=== PATIENT | female | born 1955 | race Caucasian/White ===

== ENCOUNTER → 2022-07-29 10:01 | Outpatient (CLI) | payer BC, SELFPAY ==
[2022-07-29 10:22] LABS: Hematocrit 35.9 % (36-46); Hemoglobin 12.5 g/dL (12.0-16.0); Mean Corpuscular HGB Conc 34.8 % (30-36); Mean Corpuscular Hemoglobin 29.6 PG (26-34); Mean Corpuscular Volume 85.2 fL (80-100); Platelet Count 270 X10^3/uL (150-400); Red Blood Cell Count 4.21 X10^6/uL (4.0-5.2); Red Cell Distribution Width 13.5 % (11.6-14.8); White Blood Cell Count 6.4 X10^3/uL (4.5-11.0)
[2022-07-29 10:38] LABS: HEMOLYSIS < 15 (0-50); Iron 100 ug/dL (37-170)
[2022-07-29 10:40] LABS: Alanine Aminotransferase 42 IU/L (<35); Albumin 4.4 g/dL (3.5-5.0); Albumin Globulin Ratio 1.6 (1.0-2.8); Alkaline Phosphatase 85 U/L (38-126); Aspartate Aminotransferase 45 IU/L (14-36); BUN Creatinine Ratio 32.7 (6-22); Bilirubin Total 0.4 mg/dL (0.2-1.3); Blood Urea Nitrogen 18 mg/dL (7-17); Calcium 9.5 mg/dL (8.4-10.2); Carbon Dioxide 30 mmol/L (22-32); Chloride 102 mmol/L (98-107); Cholesterol 169 mg/dL (140-199); Estimated Glomerular Filt Rate > 60 mL/min (>60); Globulin 2.8 g/dL (1.7-4.1); Glucose 120 mg/dL (80-110); HDL Cholesterol 64 mg/dL (40-60); HEMOLYSIS < 15 (0-50); LDL Cholesterol Calculated 75 mg/dL (<100); Sodium 139 mmol/L (137-145); Total Protein 7.2 g/dL (6.3-8.2); Triglycerides 149 mg/dL (35-150)
[2022-07-29 10:49] LABS: Percent Iron Saturation 28 % (15-50); Total Iron Binding Capacity 353 ug/dL (265-497); Transferrin 270 mg/dL (206-381)
[2022-07-29 11:12] LABS: TSH w/ Reflex to FT4 1.93 uIU/mL (0.47-4.68)
[2022-07-29 11:15] LABS: Ferritin 57 ng/mL (11-264)
[2022-07-30 09:38] LABS: Labcorp Hemoglobin (Hb) A1c 6.1 % (4.8-5.6)
[2022-08-02 17:00] LABS: Lamotrigine Lamictal 6.3 ug/mL (2.0-20.0)
== END ==
PROVIDERS: PCP Internal Medicine; Referring Provider Internal Medicine; Visit Provider Internal Medicine
DX: E78.2 Mixed hyperlipidemia (principal); E83.19 Other disorders of iron metabolism; I10 Essential (primary) hypertension; K75.81 Nonalcoholic steatohepatitis (NASH); R73.01 Impaired fasting glucose; F31.81 Bipolar II disorder
CPT/HCPCS: 36415; 80053; 80061; 80175; 82728; 83036; 83540; 83550; 84443; 85027

== ENCOUNTER → 2022-10-14 15:21 | Outpatient (CLI) | payer MEDICARE, OTHER, SELFPAY ==
--- NOTE | 2022-10-14 15:22 | DI.RAD.S_ITS ---
PROCEDURE: XR LUMBAR SPINE MIN 4V INDICATIONS: low back pain TECHNIQUE: 5 views of the lumbar spine were acquired, including bilateral oblique views. COMPARISON: None. FINDINGS: Bones: 5 nonrib-bearing vertebrae are present. No vertebral body compression fractures. No suspicious bony lesions. Expected appearance of orthopedic fusion hardware, status post bilateral alla and pedicle screw fixation at L4-L5 and interbody spacer material placement. No evidence of hardware failure or loosening. There is mild anterolisthesis of L4 on L5 measuring 5 mm. The other vertebral bodies are normally aligned. Soft tissues: Overlying bowel gas pattern is normal. No suspicious soft tissue calcifications. Oblique images: No pars defects. IMPRESSION: The expected appearance of lumbar orthopedic fusion hardware. Dictated by: Mike Heath M.D. on 10/14/2022 at 17:37 Approved by: Mike Heath M.D. on 10/14/2022 at 17:39
== END ==
PROVIDERS: PCP Internal Medicine; Referring Provider Internal Medicine; Visit Provider Internal Medicine
DX: M54.50 Low back pain, unspecified (principal); Z98.1 Arthrodesis status
CPT/HCPCS: 72110

== ENCOUNTER 2023-04-29 14:30 | Outpatient (RCR) | payer MEDICARE, OTHER, SELFPAY ==
--- NOTE | 2023-02-28 17:05 | PT.OIE ---
Current Diagnoses Other chronic pain (02/28/23) Polyosteoarthritis, unspecified (02/28/23) Low back pain, unspecified (02/28/23) Unsteadiness on feet (02/28/23) Past Medical History (Last Updated 02/03/23 @ 10:38 by Phillip Ramos MD) Allergic rhinitis Bipolar 2 disorder Chronic low back pain Depression, major, recurrent Dystrophic nail Essential hypertension Gait instability Impaired fasting glucose Laryngospasm Mixed hyperlipidemia PERES (nonalcoholic steatohepatitis) Osteochondritis of tibial tuberosity Osteopenia Overweight Primary osteoarthritis involving multiple joints Restless leg syndrome Tinea unguium Urinary incontinence Visit Care Team Role Provider Type Phillip Ramos MD Attending Provider Physician Family Provider Primary Care Provider Referring Provider Specialty: Internal Medicine Address: [address] [place] [address] Email: [email or web address] Physical Therapy Initial Evaluation PT-OP-A Visit Information Start: 02/24/23 14:36 Freq: Status: Active Protocol: Document 02/28/23 13:14 [facility] (Rec: 02/28/23 14:06 [facility] [id number]) Out-Patient Physical Therapy Visit Information Visit Information Visit Type Initial Evaluation Visit Start Time 13:15 Visit Stop Time 14:00 Total Visit Minutes 45 Visit Number 1 Evaluation Information Evaluation Date 02/28/23 Precautions Precautions history osteopenia, depression , incontinence, chronic LBP, bipolar disorder, gait instability, essential HTN, L4 -5 fusion and decompression , R LAMAR 06/18, carpal tunnel surgery jered PT-OP-B Current Condition Start: 02/24/23 14:36 Freq: Status: Active Protocol: Document 02/28/23 13:14 [facility] (Rec: 02/28/23 14:06 [facility] [id number]) Current Condition History of Current Condition Onset Date 2019 Current Complaints balance difficulty, weakness, drop foot, anterior hip tightness, poor propr History of Current Condition nerve damage from compression in spine causes balance difficulty, possible drop foot . Prior Treatments and Tests spinal surgery 2019 Treatment Goals Patient/Caregiver Goals Walk faster for exercise, hike with confidence, learn to use trekking poles, improve balance Prior Functional Status Baseline Function- ADL's Independent Baseline Function- Mobility Independent Baseline Function- Gait independent Baseline Function- Recreation/Hobbies hiked without difficulty Current Functional Impairments (Reported) Functional Limitations- ADL's has to hold on more for balance Functional Limitations- Mobility/Gait use of cane at times, considering trekking poles Functional Limitations- Work/School on disability Functional Limitations- Recreation/ doesn't feel safe hiking Hobbies PT-OP-D Balance Start: 02/24/23 14:36 Freq: Status: Active Protocol: Document 02/28/23 13:14 [facility] (Rec: 03/01/23 17:05 [facility] [id number]) Balance Tests Single Limb Standing Single Limb- Right 5 Single Limb- Left 7 Tandem Tandem Standing 12 PT-OP-E Functional Tests Start: 02/24/23 14:36 Freq: Status: Active Protocol: Document 02/28/23 13:14 [facility] (Rec: 03/01/23 17:05 [facility] [id number]) Functional Tests Dynamic Gait Index (DGI) Score 54 PT-OP-F Manual Assessment Start: 02/24/23 14:36 Freq: Status: Active Protocol: Document 02/28/23 13:14 [facility] (Rec: 03/01/23 17:05 [facility] [id number]) Manual Assessments Soft Tissue Assessment Soft Tissue Mobility Assessment decreased mobility jered surgical scars lumbar spine PT-OP-G Mobility & Gait Start: 02/24/23 14:36 Freq: Status: Active Protocol: Document 02/28/23 13:14 [facility] (Rec: 03/01/23 17:05 [facility] [id number]) OP Gait Assessment Gait Gait Assistance Required: Independent Distance (Feet) 120 Assistive Devices Assistive Device Straight Cane Gait Deviations General Gait Pattern Decreased Stride Length, Decreased Feet Clearance Factors Limiting Gait Function Factors Limiting Gait Function Decreased Sensation,Decreased Strength,Poor Balance PT-OP-H Neuro Start: 02/24/23 14:36 Freq: Status: Active Protocol: Document 02/28/23 13:14 [facility] (Rec: 03/01/23 17:05 [facility] [id number]) Sensation Evaluation Gross Sensation Gross Sensation Left LE Impaired,Right LE Impaired Sensation Description Paresthesia Comments Summary Comments decreased proprioception jered LE's PT-OP-M Strength Start: 02/24/23 14:36 Freq: Status: Active Protocol: Document 02/28/23 13:14 [facility] (Rec: 02/28/23 14:06 [facility] [id number]) Hip Strength Hip Manual Muscle Testing Right Flexion (L2) 4 Good Extension (S1) 4- Good- Abduction 4- Good- External Rotation 3+ Fair+ Internal Rotation 4- Good- Left Flexion (L2) 4 Good Extension (S1) 4- Good- Abduction 4- Good- External Rotation 4- Good- Internal Rotation 4- Good- Knee Strength Knee Manual Muscle Testing Right Flexion (S2) 4+ Good+ Extension (L3) 4+ Good+ Left Flexion (S2) 4+ Good+ Extension (L3) 4+ Good+ Ankle/Foot Strength Ankle and Foot Manual Muscle Testing Right Dorsiflexion (L4) 5 Normal Plantarflexion (S1) 5 Normal Left Dorsiflexion (L4) 4 Good Plantarflexion (S1) 4 Good Toe Strength Toe Manual Muscle Testing Right Great Toe Flexion 4+ Good+ Left Great Toe Extension 4+ Good+ PT-OP-Q Treatments Start: 02/24/23 14:36 Freq: Status: Active Protocol: Document 02/28/23 13:14 [facility] (Rec: 02/28/23 14:06 [facility] [id number]) Self-Care/Home Management Treatment Education Patient Education Fall Risk,Home Exercise Program,Safety PT-OP-T Assessment and Plan Start: 02/24/23 14:36 Freq: Status: Active Protocol: Document 02/28/23 13:14 [facility] (Rec: 02/28/23 14:06 [facility] [id number]) Physical Therapy Assessment Rehab Potential Rehabilitation Potential Good Evaluation Complexity Number of Personal Factors/Comorbidities 1-2 Number of Body Systems Impaired 3 Clinical Presentation at Evaluation Evolving Impairments Impairments Activity Tolerance,Balance, Gait Goals Four Impairment balance dysfunction Impairment Activities-specific balance confidence (ABC) Scale 24% Short Term Goal (STG) Improve ABC score to at least 40% STG Duration 03/31/23 Usp Goal (LTG) Improve ABC score to at least 60% as measure of improved balance confidence to allow her to return to prior level of function LTG Duration 04/30/23 Three Impairment lacking regular exercise LTG Duration 04/30/23 Two Impairment activity intolerance Impairment Patient unable to go hiking safely Medical Dosimetrist Goal (LTG) Patient able to return to hiking with safe use of trekking poles LTG Duration 04/30/23 One Impairment gait instability Impairment Dynamic gait index 54% Short Term Goal (STG) Improve DGI score to at least 64% as measure of improved stability with gait STG Duration 03/31/23 Medical Dosimetrist Goal (LTG) Improve DGI score to at least 75% as measure of improved stability with gait LTG Duration 04/30/23 Assessment Summary Assessment Patient presents to PT with c/ o balance and gait difficulty, weakness, not feeling safe anymore to go hiking. Evaluation reveals jered LE weakness left greater than right, dec proprioception, dec scar mobility jered lumbar spine s/p spinal decompression and fusion 2018. Feel she would benefit from PT to improve her strength, balance, and gait, improve scar mobility. Treatment today consisted of evaluation and instruction in initial HEP for balance training. Discussed POC and patient was in agreement. Physical Therapy Plan Frequency and Duration Frequency of Treatment 2x/Week Duration of treatment (weeks) 8 Plan of Care Start Date 02/28/23 Plan of Care End Date 04/30/23 Therapeutic Interventions Therapeutic Interventions Balance Training,Home Exercise Program,Manual Therapy, Patient/Caregiver Education, Self-Care/Home Management,Soft Tissue Mobilization,Taping, Therapeutic Activities, Therapeutic Exercises Modalities Cold Pack/Ice Massage,Hot Packs Next Visit Focus/Plan Next Note Type Treatment Note Next Visit Plan Review HEP, patient education in correct use of trekking poles, strengthening and balance exercises. Soft tissue mobilization of lumbar surgery scars.
--- NOTE | 2023-02-28 17:06 | PT.OPPOC ---
Physical, Occupational & Speech Therapy At Current Diagnoses Other chronic pain (02/28/23) Polyosteoarthritis, unspecified (02/28/23) Low back pain, unspecified (02/28/23) Unsteadiness on feet (02/28/23) Visit Care Team Role Provider Type Phillip Ramos MD Attending Provider Physician Family Provider Primary Care Provider Referring Provider Specialty: Internal Medicine Address: [address] [place] [address], [facility] Email: [email or web address] Plan Of Care PT-OP-T Assessment and Plan Start: 02/24/23 14:36 Freq: Status: Active Protocol: Document 02/28/23 13:14 [facility] (Rec: 02/28/23 14:06 [facility] [id number]) Physical Therapy Assessment Rehab Potential Rehabilitation Potential Good Evaluation Complexity Number of Personal Factors/Comorbidities 1-2 Number of Body Systems Impaired 3 Clinical Presentation at Evaluation Evolving Impairments Impairments Activity Tolerance,Balance, Gait Goals Four Impairment balance dysfunction Impairment Activities-specific balance confidence (ABC) Scale 24% Short Term Goal (STG) Improve ABC score to at least 40% STG Duration 03/31/23 Open Die Inspector Goal (LTG) Improve ABC score to at least 60% as measure of improved balance confidence to allow her to return to prior level of function LTG Duration 04/30/23 Three Impairment lacking regular exercise LTG Duration 04/30/23 Two Impairment activity intolerance Impairment Patient unable to go hiking safely Prison Goal (LTG) Patient able to return to hiking with safe use of trekking poles LTG Duration 04/30/23 One Impairment gait instability Impairment Dynamic gait index 54% Short Term Goal (STG) Improve DGI score to at least 64% as measure of improved stability with gait STG Duration 03/31/23 Open Die Inspector Goal (LTG) Improve DGI score to at least 75% as measure of improved stability with gait LTG Duration 04/30/23 Assessment Summary Assessment Patient presents to PT with c/ o balance and gait difficulty, weakness, not feeling safe anymore to go hiking. Evaluation reveals jered LE weakness left greater than right, dec proprioception, dec scar mobility jered lumbar spine s/p spinal decompression and fusion 2018. Feel she would benefit from PT to improve her strength, balance, and gait, improve scar mobility. Treatment today consisted of evaluation and instruction in initial HEP for balance training. Discussed POC and patient was in agreement. Physical Therapy Plan Frequency and Duration Frequency of Treatment 2x/Week Duration of treatment (weeks) 8 Plan of Care Start Date 02/28/23 Plan of Care End Date 04/30/23 Therapeutic Interventions Therapeutic Interventions Balance Training,Home Exercise Program,Manual Therapy, Patient/Caregiver Education, Self-Care/Home Management,Soft Tissue Mobilization,Taping, Therapeutic Activities, Therapeutic Exercises Modalities Cold Pack/Ice Massage,Hot Packs Next Visit Focus/Plan Next Note Type Treatment Note Next Visit Plan Review HEP, patient education in correct use of trekking poles, strengthening and balance exercises. Soft tissue mobilization of lumbar surgery scars. Plan of Care Dates Plan of Care Start Date 02/28/23 Plan of Care End Date 04/30/23 Electronically Signed by: Gabriela Giles, PT 03/01/23 3391 If you are in agreement with this Plan of Care, please return a signed and dated copy. I have reviewed this Plan of Care and certify that the skilled therapy services above are required to meet the patient?s needs. Physician Signature Date Printed Name and Credentials Clinical Instructor Signature Printed Name and Credentials
--- NOTE | 2023-03-04 13:24 | PT.OTN ---
Current Diagnoses Other chronic pain (03/04/23) Polyosteoarthritis, unspecified (03/04/23) Low back pain, unspecified (03/04/23) Unsteadiness on feet (03/04/23) Physical Therapy Treatment Note PT-OP-A Visit Information Start: 02/24/23 14:36 Freq: Status: Active Protocol: Document 03/04/23 09:54 [facility] (Rec: 03/04/23 10:35 [facility] [id number]) Out-Patient Physical Therapy Visit Information Visit Information Visit Type Treatment Note Visit Note 10min late start due to pt 5 min late then using restroom upon arrival. Visit Start Time 09:55 Visit Stop Time 10:35 Total Visit Minutes 40 Visit Number 2 Number of MANAGER PROCESS EXCELLENCE Visits 1 PT-OP-B Current Condition Start: 02/24/23 14:36 Freq: Status: Active Protocol: Document 02/28/23 13:14 [facility] (Rec: 02/28/23 14:06 [facility] [id number]) Current Condition History of Current Condition Onset Date 2019 Current Complaints balance difficulty, weakness, drop foot, anterior hip tightness, poor propr History of Current Condition nerve damage from compression in spine causes balance difficulty, possible drop foot . Prior Treatments and Tests spinal surgery 2019 Treatment Goals Patient/Caregiver Goals Walk faster for exercise, hike with confidence, learn to use trekking poles, improve balance Prior Functional Status Baseline Function- ADL's Independent Baseline Function- Mobility Independent Baseline Function- Gait independent Baseline Function- Recreation/Hobbies hiked without difficulty Current Functional Impairments (Reported) Functional Limitations- ADL's has to hold on more for balance Functional Limitations- Mobility/Gait use of cane at times, considering trekking poles Functional Limitations- Work/School on disability Functional Limitations- Recreation/ doesn't feel safe hiking Hobbies Protocol: Document 03/04/23 09:54 [facility] (Rec: 03/04/23 10:35 [facility] [id number]) OP-PT Subjective Patient Comments Patient Comments Haydee reports she has tried home ex's once. Balancing on one foot, tandem, heel raises. PT-OP-D Balance Start: 02/24/23 14:36 Freq: Status: Active Protocol: Document 02/28/23 13:14 [facility] (Rec: 03/01/23 17:05 [facility] [id number]) Balance Tests Single Limb Standing Single Limb- Right 5 Single Limb- Left 7 Tandem Tandem Standing 12 PT-OP-E Functional Tests Start: 02/24/23 14:36 Freq: Status: Active Protocol: Document 02/28/23 13:14 [facility] (Rec: 03/01/23 17:05 [facility] [id number]) Functional Tests Dynamic Gait Index (DGI) Score 54 PT-OP-F Manual Assessment Start: 02/24/23 14:36 Freq: Status: Active Protocol: Document 02/28/23 13:14 [facility] (Rec: 03/01/23 17:05 [facility] [id number]) Manual Assessments Soft Tissue Assessment Soft Tissue Mobility Assessment decreased mobility jered surgical scars lumbar spine PT-OP-G Mobility & Gait Start: 02/24/23 14:36 Freq: Status: Active Protocol: Document 02/28/23 13:14 [facility] (Rec: 03/01/23 17:05 [facility] [id number]) OP Gait Assessment Gait Gait Assistance Required: Independent Distance (Feet) 120 Assistive Devices Assistive Device Straight Cane Gait Deviations General Gait Pattern Decreased Stride Length, Decreased Feet Clearance Factors Limiting Gait Function Factors Limiting Gait Function Decreased Sensation,Decreased Strength,Poor Balance PT-OP-H Neuro Start: 02/24/23 14:36 Freq: Status: Active Protocol: Document 02/28/23 13:14 [facility] (Rec: 03/01/23 17:05 [facility] [id number]) Sensation Evaluation Gross Sensation Gross Sensation Left LE Impaired,Right LE Impaired Sensation Description Paresthesia Comments Summary Comments decreased proprioception jered LE's PT-OP-M Strength Start: 02/24/23 14:36 Freq: Status: Active Protocol: Document 02/28/23 13:14 [facility] (Rec: 02/28/23 14:06 [facility] [id number]) Hip Strength Hip Manual Muscle Testing Right Flexion (L2) 4 Good Extension (S1) 4- Good- Abduction 4- Good- External Rotation 3+ Fair+ Internal Rotation 4- Good- Left Flexion (L2) 4 Good Extension (S1) 4- Good- Abduction 4- Good- External Rotation 4- Good- Internal Rotation 4- Good- Knee Strength Knee Manual Muscle Testing Right Flexion (S2) 4+ Good+ Extension (L3) 4+ Good+ Left Flexion (S2) 4+ Good+ Extension (L3) 4+ Good+ Ankle/Foot Strength Ankle and Foot Manual Muscle Testing Right Dorsiflexion (L4) 5 Normal Plantarflexion (S1) 5 Normal Left Dorsiflexion (L4) 4 Good Plantarflexion (S1) 4 Good Toe Strength Toe Manual Muscle Testing Right Great Toe Flexion 4+ Good+ Left Great Toe Extension 4+ Good+ PT-OP-Q Treatments Start: 02/24/23 14:36 Freq: Status: Active Protocol: Document 03/04/23 09:54 [facility] (Rec: 03/04/23 10:35 [facility] [id number]) Cardio Equipment Recumbent Elliptical (Biodex) Duration (Minutes) 7 Resistance 1>3 at min 4 Seat Position 4 Other cues for pushing through heels Therapeutic Exercises Standing Exercises hip flexor stretch Standing Exercise Name 1. lunge position 2. verbal discussion of Vinnie position Side bilateral Equipment Used handrail Reps/Minutes x30s ea Comments cues for form heel raises Side bilateral Equipment Used handrail Reps/Minutes x5 Gait Training Gait Activity Trekking Pole Ambulation Description bilateral, 2 pt gait pattern Device Used Sevconkking poles Level of Assistance CGA > SBA for balance Surface carpet, tile; stable Treatment Focus Safety during hiking, sequencing, coordination Comments increase stride length and foot clearance. Neuro Re-Education Treatment Balance Activities hurdles Details 6 6 hurdles Surface surface Reps/Duration 10ft x 6 Comments 1 x R foot clips porfirio - possible foot drop, cues for increased hip flexion Tandem Details 1. stance 2. walking Surface firm, shoes/socks doffed Equipment handrail Reps/Duration 1.30s trials ea 2.10ft x 6 SLS Details Jered single leg balance Surface firm, shoes/socks doffed Equipment handrail Reps/Duration 30s trials Comments RLE>LLE challenge Self-Care/Home Management Treatment Education Patient Education Home Exercise Program Other Education HEP review (SLS, tandem stance , heel raises) Eduated pt on systems for balance (vision, vestibular, proprioceptive) and how ex's can improve balance with practice. PT-OP-T Assessment and Plan Start: 02/24/23 14:36 Freq: Status: Active Protocol: Document 03/04/23 09:54 [facility] (Rec: 03/04/23 10:35 [facility] [id number]) Physical Therapy Assessment Goals Four Impairment balance dysfunction Impairment Activities-specific balance confidence (ABC) Scale 24% Short Term Goal (STG) Improve ABC score to at least 40% STG Duration 03/31/23 [facility]cf Goal (LTG) Improve ABC score to at least 60% as measure of improved balance confidence to allow her to return to prior level of function LTG Duration 04/30/23 Three Impairment lacking regular exercise LTG Duration 04/30/23 Two Impairment activity intolerance Impairment Patient unable to go hiking safely Mumps Developer Goal (LTG) Patient able to return to hiking with safe use of trekking poles LTG Duration 04/30/23 One Impairment gait instability Impairment Dynamic gait index 54% Short Term Goal (STG) Improve DGI score to at least 64% as measure of improved stability with gait STG Duration 03/31/23 Mumps Developer Goal (LTG) Improve DGI score to at least 75% as measure of improved stability with gait LTG Duration 04/30/23 Assessment Summary Assessment Haydee presents without AD. Treatment focus on HEP review (SLS, tandem stance, heel raises), gait training with trekking poles and education. Educated pt on systems for balance (vision, vestibular, proprioceptive) and how ex's can improve balance with practice. Discussed incorporating HEP into daily activities to improve compliance and progress towards goals. Physical Therapy Plan Frequency and Duration Frequency of Treatment 2x/Week Duration of treatment (weeks) 8 Plan of Care Start Date 02/28/23 Plan of Care End Date 04/30/23 Therapeutic Interventions Therapeutic Interventions Balance Training,Home Exercise Program,Manual Therapy, Patient/Caregiver Education, Self-Care/Home Management,Soft Tissue Mobilization,Taping, Therapeutic Activities, Therapeutic Exercises Modalities Cold Pack/Ice Massage,Hot Packs Next Visit Focus/Plan Next Note Type Treatment Note Next Visit Plan Review HEP, patient education in correct use of trekking poles, strengthening and balance exercises. Soft tissue mobilization of lumbar surgery scars.
--- NOTE | 2023-03-07 13:26 | PT.OTN ---
Current Diagnoses Other chronic pain (03/07/23) Polyosteoarthritis, unspecified (03/07/23) Low back pain, unspecified (03/07/23) Unsteadiness on feet (03/07/23) Physical Therapy Treatment Note PT-OP-A Visit Information Start: 02/24/23 14:36 Freq: Status: Active Protocol: Document 03/07/23 13:03 NM (Rec: 03/07/23 13:26 NM [id number]) Out-Patient Physical Therapy Visit Information Visit Information Visit Type Treatment Note Visit Start Time 12:16 Visit Stop Time 01:00 Visit Number 3 Number of [employer] Visits 1 PT-OP-B Current Condition Start: 02/24/23 14:36 Freq: Status: Active Protocol: Document 02/28/23 13:14 SAK (Rec: 02/28/23 14:06 SAK [id number]) Current Condition History of Current Condition Onset Date 2018 Current Complaints balance difficulty, weakness, drop foot, anterior hip tightness, poor propr History of Current Condition nerve damage from compression in spine causes balance difficulty, possible drop foot . Prior Treatments and Tests spinal surgery 2019 Treatment Goals Patient/Caregiver Goals Walk faster for exercise, hike with confidence, learn to use trekking poles, improve balance Prior Functional Status Baseline Function- ADL's Independent Baseline Function- Mobility Independent Baseline Function- Gait independent Baseline Function- Recreation/Hobbies hiked without difficulty Current Functional Impairments (Reported) Functional Limitations- ADL's has to hold on more for balance Functional Limitations- Mobility/Gait use of cane at times, considering trekking poles Functional Limitations- Work/School on disability Functional Limitations- Recreation/ doesn't feel safe hiking Hobbies PT-OP-C Subjective Start: 02/24/23 14:36 Freq: Status: Active Protocol: Document 03/07/23 13:03 NM (Rec: 03/07/23 13:26 NM [id number]) OP-PT Subjective Patient Comments Patient Comments Pt states she is doing well and is compliant with her HEP. She reports she is having difficulty with balancing heel -toe at home. PT-OP-D Balance Start: 02/24/23 14:36 Freq: Status: Active Protocol: Document 02/28/23 13:14 SAK (Rec: 03/01/23 17:05 SAK [id number]) Balance Tests Single Limb Standing Single Limb- Right 5 Single Limb- Left 7 Tandem Tandem Standing 12 PT-OP-E Functional Tests Start: 02/24/23 14:36 Freq: Status: Active Protocol: Document 02/28/23 13:14 SAK (Rec: 03/01/23 17:05 [facility] [id number]) Functional Tests Dynamic Gait Index (DGI) Score 54 PT-OP-F Manual Assessment Start: 02/24/23 14:36 Freq: Status: Active Protocol: Document 02/28/23 13:14 SAK (Rec: 03/01/23 17:05 [facility] [id number]) Manual Assessments Soft Tissue Assessment Soft Tissue Mobility Assessment decreased mobility jered surgical scars lumbar spine PT-OP-G Mobility & Gait Start: 02/24/23 14:36 Freq: Status: Active Protocol: Document 02/28/23 13:14 SAK (Rec: 03/01/23 17:05 [facility] [id number]) OP Gait Assessment Gait Gait Assistance Required: Independent Distance (Feet) 120 Assistive Devices Assistive Device Straight Cane Gait Deviations General Gait Pattern Decreased Stride Length, Decreased Feet Clearance Factors Limiting Gait Function Factors Limiting Gait Function Decreased Sensation,Decreased Strength,Poor Balance PT-OP-H Neuro Start: 02/24/23 14:36 Freq: Status: Active Protocol: Document 02/28/23 13:14 [facility] (Rec: 03/01/23 17:05 [facility] [id number]) Sensation Evaluation Gross Sensation Gross Sensation Left LE Impaired,Right LE Impaired Sensation Description Paresthesia Comments Summary Comments decreased proprioception jered LE's PT-OP-M Strength Start: 02/24/23 14:36 Freq: Status: Active Protocol: Document 02/28/23 13:14 [facility] (Rec: 02/28/23 14:06 [facility] [id number]) Hip Strength Hip Manual Muscle Testing Right Flexion (L2) 4 Good Extension (S1) 4- Good- Abduction 4- Good- External Rotation 3+ Fair+ Internal Rotation 4- Good- Left Flexion (L2) 4 Good Extension (S1) 4- Good- Abduction 4- Good- External Rotation 4- Good- Internal Rotation 4- Good- Knee Strength Knee Manual Muscle Testing Right Flexion (S2) 4+ Good+ Extension (L3) 4+ Good+ Left Flexion (S2) 4+ Good+ Extension (L3) 4+ Good+ Ankle/Foot Strength Ankle and Foot Manual Muscle Testing Right Dorsiflexion (L4) 5 Normal Plantarflexion (S1) 5 Normal Left Dorsiflexion (L4) 4 Good Plantarflexion (S1) 4 Good Toe Strength Toe Manual Muscle Testing Right Great Toe Flexion 4+ Good+ Left Great Toe Extension 4+ Good+ PT-OP-Q Treatments Start: 02/24/23 14:36 Freq: Status: Active Protocol: Document 03/07/23 13:03 NM (Rec: 03/07/23 13:26 NM [id number]) Cardio Equipment Recumbent Stepper (Sci-Fit) Duration (Minutes) 5 Resistance 3 Seat Position 9 Gym Equipment Shuttle Recovery heel raise to toe raise Details bilateral Resistance 25# (1 blue) Reps/Time 2x15 squats Details bilateral, green TB around knees Resistance 50# (2 navy) Shuttle Recovery Platform Stable Reps/Time 2x15 Gait Training Gait Activity Trekking Pole Ambulation Description bilateral, 2 pt gait pattern Device Used trekking poles Level of Assistance CGA > SBA for balance Surface carpet, tile; stable Distance/Duration 2 laps Treatment Focus Safety during hiking, coordination, balance Comments Cues for pole placement, correct pattern, awareness of feet. Pt drags L pole. Neuro Re-Education Treatment Balance Activities Narrow stance Details 1. stance, 2. eyes closed Surface firm, shoes doffed Equipment // bars, no UE use Reps/Duration 4x30 ea Comments Required occasional 2 finger assist during eyes closed for balance; mirror in front for visual cue Tandem Details 1. stance, 2. dual task- answering questions Surface firm, shoes doffed Equipment // bars, no UE use Reps/Duration 4x 30 ea Comments Mirror in front for visual cues; able to perform for 20 sec without use of UE for balance PT-OP-T Assessment and Plan Start: 02/24/23 14:36 Freq: Status: Active Protocol: Document 03/07/23 13:03 NM (Rec: 03/07/23 13:26 NM [id number]) Physical Therapy Assessment Rehab Potential Rehabilitation Potential Good Impairments Impairments Activity Tolerance,Balance, Gait Assessment Summary Assessment Pt tolerated treatment well, requires multiple cues to remain on task. Demonstrates improved stability during tandem and narrow stances with few instances of UE support for balance. Initiated gait training using trekking poles for future hiking activities; required consistent cues for L pole placement and advancement. Provided new HEP with quad/hip abd and ankle strengthening to improve balance. Pt would continue to benefit from skilled PT to address impairments in gait, balance, strength, proprioception, and safety awareness. Physical Therapy Plan Frequency and Duration Frequency of Treatment 2x/Week Duration of treatment (weeks) 8 Plan of Care Start Date 02/28/23 Plan of Care End Date 04/30/23 Therapeutic Interventions Therapeutic Interventions Balance Training,Home Exercise Program,Manual Therapy, Patient/Caregiver Education, Self-Care/Home Management,Soft Tissue Mobilization,Taping, Therapeutic Activities, Therapeutic Exercises Modalities Cold Pack/Ice Massage,Hot Packs Next Visit Focus/Plan Next Note Type Treatment Note Next Visit Plan Review HEP, trekking poles. Continue BLE strengthening and progress balance exercises.
--- NOTE | 2023-03-10 16:16 | PT.OTN ---
Current Diagnoses Other chronic pain (03/10/23) Polyosteoarthritis, unspecified (03/10/23) Low back pain, unspecified (03/10/23) Unsteadiness on feet (03/10/23) Physical Therapy Treatment Note PT-OP-A Visit Information Start: 02/24/23 14:36 Freq: Status: Active Protocol: Document 03/10/23 11:16 SAK (Rec: 03/10/23 12:02 [facility] [id number]) Out-Patient Physical Therapy Visit Information Visit Information Visit Type Treatment Note Visit Start Time 11:16 Visit Stop Time 12:00 Total Visit Minutes 44 Visit Number 4 Number of ASSISTANT STORE MANAGER TRAINEE Visits 0 Evaluation Information Evaluation Date 02/28/23 PT-OP-B Current Condition Start: 02/24/23 14:36 Freq: Status: Active Protocol: Document 03/10/23 11:16 SAK (Rec: 03/10/23 12:02 [facility] [id number]) Current Condition History of Current Condition Onset Date 2019 Current Complaints balance difficulty, weakness, drop foot, anterior hip tightness, poor propr History of Current Condition nerve damage from compression in spine causes balance difficulty, possible drop foot . Prior Treatments and Tests spinal surgery 2019 PT-OP-C Subjective Start: 02/24/23 14:36 Freq: Status: Active Protocol: Document 03/10/23 11:16 SAK (Rec: 03/10/23 12:02 [facility] [id number]) OP-PT Subjective Patient Comments Patient Comments Reports feeling her balance is some better. Notices her balance is better when she walks faster. Has been doing HEP. PT-OP-D Balance Start: 02/24/23 14:36 Freq: Status: Active Protocol: Document 02/28/23 13:14 SAK (Rec: 03/01/23 17:05 [facility] [id number]) Balance Tests Single Limb Standing Single Limb- Right 5 Single Limb- Left 7 Tandem Tandem Standing 12 PT-OP-E Functional Tests Start: 02/24/23 14:36 Freq: Status: Active Protocol: Document 02/28/23 13:14 SAK (Rec: 03/01/23 17:05 [facility] [id number]) Functional Tests Dynamic Gait Index (DGI) Score 54 PT-OP-F Manual Assessment Start: 02/24/23 14:36 Freq: Status: Active Protocol: Document 02/28/23 13:14 SAK (Rec: 03/01/23 17:05 [facility] [id number]) Manual Assessments Soft Tissue Assessment Soft Tissue Mobility Assessment decreased mobility tyron surgical scars lumbar spine PT-OP-G Mobility & Gait Start: 02/24/23 14:36 Freq: Status: Active Protocol: Document 02/28/23 13:14 [facility] (Rec: 03/01/23 17:05 [facility] [id number]) OP Gait Assessment Gait Gait Assistance Required: Independent Distance (Feet) 120 Assistive Devices Assistive Device Straight Cane Gait Deviations General Gait Pattern Decreased Stride Length, Decreased Feet Clearance Factors Limiting Gait Function Factors Limiting Gait Function Decreased Sensation,Decreased Strength,Poor Balance PT-OP-H Neuro Start: 02/24/23 14:36 Freq: Status: Active Protocol: Document 02/28/23 13:14 [facility] (Rec: 03/01/23 17:05 [facility] [id number]) Sensation Evaluation Gross Sensation Gross Sensation Left LE Impaired,Right LE Impaired Sensation Description Paresthesia Comments Summary Comments decreased proprioception tyron LE's PT-OP-M Strength Start: 02/24/23 14:36 Freq: Status: Active Protocol: Document 02/28/23 13:14 [facility] (Rec: 02/28/23 14:06 [facility] [id number]) Hip Strength Hip Manual Muscle Testing Right Flexion (L2) 4 Good Extension (S1) 4- Good- Abduction 4- Good- External Rotation 3+ Fair+ Internal Rotation 4- Good- Left Flexion (L2) 4 Good Extension (S1) 4- Good- Abduction 4- Good- External Rotation 4- Good- Internal Rotation 4- Good- Knee Strength Knee Manual Muscle Testing Right Flexion (S2) 4+ Good+ Extension (L3) 4+ Good+ Left Flexion (S2) 4+ Good+ Extension (L3) 4+ Good+ Ankle/Foot Strength Ankle and Foot Manual Muscle Testing Right Dorsiflexion (L4) 5 Normal Plantarflexion (S1) 5 Normal Left Dorsiflexion (L4) 4 Good Plantarflexion (S1) 4 Good Toe Strength Toe Manual Muscle Testing Right Great Toe Flexion 4+ Good+ Left Great Toe Extension 4+ Good+ PT-OP-Q Treatments Start: 02/24/23 14:36 Freq: Status: Active Protocol: Document 03/10/23 11:16 [facility] (Rec: 03/10/23 12:02 [facility] [id number]) Cardio Equipment Recumbent Stepper (Sci-Fit) Duration (Minutes) 5 Resistance 3 Seat Position 9 Gym Equipment Shuttle Recovery heel raise to toe raise Details bilateral Resistance 25# (1 blue) Reps/Time 2x15, cues for gluteal activation squats Details bilateral, green TB around knees Resistance 50# (2 navy) Shuttle Recovery Platform Stable Reps/Time 2x15, cues for gluteal activation Shuttle Balance chains red Details EO, bal and wt shift fwd/bck, side Reps/Duration 10 min Therapeutic Exercises Supine Exercises bridge Supine Exercise Name dbl, single Reps/Minutes 5x ea Comments cues for min lift with single Standing Exercises ant tib stretch Reps/Minutes 2x30 HC stretch Reps/Minutes 2x30 Gait Training Gait Activity Trekking Pole Ambulation Comments Hasn't used yet at home. Neuro Re-Education Treatment Balance Activities foam walk Details green, blue, black foam Reps/Duration 2 min Comments parallel bars. Narrow stance Details 1. stance, 2. eyes closed Surface firm, shoes doffed Equipment // bars, no UE use Reps/Duration 4x30 ea Comments Required occasional 2 finger assist during eyes closed for balance; mirror in front for visual cue Tandem Details stance, walking Surface blue foam shoes doffed Equipment // bars, no UE use SLS Details Tyron single leg balance Surface firm, shoes/socks doffed Equipment handrail Reps/Duration 30s trials Comments RLE>LLE challenge PT-OP-T Assessment and Plan Start: 02/24/23 14:36 Freq: Status: Active Protocol: Document 03/10/23 11:16 [facility] (Rec: 03/10/23 12:02 [facility] [id number]) Physical Therapy Assessment Impairments Impairments Activity Tolerance,Balance, Gait Goals Four Impairment balance dysfunction Impairment Activities-specific balance confidence (ABC) Scale 24% Short Term Goal (STG) Improve ABC score to at least 40% STG Duration 03/31/23 Fpc Goal (LTG) Improve ABC score to at least 60% as measure of improved balance confidence to allow her to return to prior level of function LTG Duration 04/30/23 Three Impairment lacking regular exercise Short Term Goal (STG) Instruct in HEP with emphasis on balance and LE strength STG Duration 03/31/23 Engineered Wood Designer Goal (LTG) Patient to be independent and compliant with HEP for purposes of LE strengthening and balance. LTG Duration 04/30/23 Two Impairment activity intolerance Impairment Patient unable to go hiking safely Fpc Goal (LTG) Patient able to return to hiking with safe use of trekking poles LTG Duration 04/30/23 One Impairment gait instability Impairment Dynamic gait index 54% Short Term Goal (STG) Improve DGI score to at least 64% as measure of improved stability with gait STG Duration 03/31/23 Engineered Wood Designer Goal (LTG) Improve DGI score to at least 75% as measure of improved stability with gait LTG Duration 04/30/23 Progress Towards Goals Progress Towards Goals Progressing Toward Goals Assessment Summary Assessment progressed to red chains on shuttle balance, added single leg bridge, glue foam under feet for tandem stand. Noting improved functional balance. Hasn't tried using trekking poles yet, may need further review/ instruction. Will continue to benefit from skilled PT. Physical Therapy Plan Frequency and Duration Frequency of Treatment 2x/Week Duration of treatment (weeks) 8 Plan of Care Start Date 02/28/23 Plan of Care End Date 04/30/23 Therapeutic Interventions Therapeutic Interventions Balance Training,Home Exercise Program,Manual Therapy, Patient/Caregiver Education, Self-Care/Home Management,Soft Tissue Mobilization,Taping, Therapeutic Activities, Therapeutic Exercises Modalities Cold Pack/Ice Massage,Hot Packs Next Visit Focus/Plan Next Note Type Treatment Note Next Visit Plan Cont ther ex progression for balance and strengthening including obstacle course and progression of shuttle balance activities. Review use of trekking poles.
--- NOTE | 2023-03-16 10:45 | PT.OTN ---
Current Diagnoses Other chronic pain (03/16/23) Polyosteoarthritis, unspecified (03/16/23) Low back pain, unspecified (03/16/23) Unsteadiness on feet (03/16/23) Physical Therapy Treatment Note PT-OP-A Visit Information Start: 02/24/23 14:36 Freq: Status: Active Protocol: Document 03/16/23 08:11 SAK (Rec: 03/16/23 09:00 SAK [id number]) Out-Patient Physical Therapy Visit Information Visit Information Visit Type Treatment Note Visit Start Time 08:15 Visit Stop Time 08:55 Total Visit Minutes 40 Visit Number 5 Evaluation Information Evaluation Date 02/28/23 PT-OP-B Current Condition Start: 02/24/23 14:36 Freq: Status: Active Protocol: Document 03/16/23 08:11 SAK (Rec: 03/16/23 09:00 SAK [id number]) Current Condition History of Current Condition Onset Date 2019 Current Complaints balance difficulty, weakness, drop foot, anterior hip tightness, poor propr History of Current Condition nerve damage from compression in spine causes balance difficulty, possible drop foot . Prior Treatments and Tests spinal surgery 2019 PT-OP-C Subjective Start: 02/24/23 14:36 Freq: Status: Active Protocol: Document 03/16/23 08:11 SAK (Rec: 03/16/23 09:00 SAK [id number]) OP-PT Subjective Patient Comments Patient Comments Compliant to HEP. PT-OP-D Balance Start: 02/24/23 14:36 Freq: Status: Active Protocol: Document 02/28/23 13:14 SAK (Rec: 03/01/23 17:05 SAK [id number]) Balance Tests Single Limb Standing Single Limb- Right 5 Single Limb- Left 7 Tandem Tandem Standing 12 PT-OP-E Functional Tests Start: 02/24/23 14:36 Freq: Status: Active Protocol: Document 02/28/23 13:14 SAK (Rec: 03/01/23 17:05 SAK [id number]) Functional Tests Dynamic Gait Index (DGI) Score 54 PT-OP-F Manual Assessment Start: 02/24/23 14:36 Freq: Status: Active Protocol: Document 02/28/23 13:14 SAK (Rec: 03/01/23 17:05 SAK [id number]) Manual Assessments Soft Tissue Assessment Soft Tissue Mobility Assessment decreased mobility tyron surgical scars lumbar spine PT-OP-G Mobility & Gait Start: 02/24/23 14:36 Freq: Status: Active Protocol: Document 02/28/23 13:14 [facility] (Rec: 03/01/23 17:05 [facility] [id number]) OP Gait Assessment Gait Gait Assistance Required: Independent Distance (Feet) 120 Assistive Devices Assistive Device Straight Cane Gait Deviations General Gait Pattern Decreased Stride Length, Decreased Feet Clearance Factors Limiting Gait Function Factors Limiting Gait Function Decreased Sensation,Decreased Strength,Poor Balance PT-OP-H Neuro Start: 02/24/23 14:36 Freq: Status: Active Protocol: Document 02/28/23 13:14 [facility] (Rec: 03/01/23 17:05 [facility] [id number]) Sensation Evaluation Gross Sensation Gross Sensation Left LE Impaired,Right LE Impaired Sensation Description Paresthesia Comments Summary Comments decreased proprioception tyron LE's PT-OP-M Strength Start: 02/24/23 14:36 Freq: Status: Active Protocol: Document 02/28/23 13:14 [facility] (Rec: 02/28/23 14:06 [facility] [id number]) Hip Strength Hip Manual Muscle Testing Right Flexion (L2) 4 Good Extension (S1) 4- Good- Abduction 4- Good- External Rotation 3+ Fair+ Internal Rotation 4- Good- Left Flexion (L2) 4 Good Extension (S1) 4- Good- Abduction 4- Good- External Rotation 4- Good- Internal Rotation 4- Good- Knee Strength Knee Manual Muscle Testing Right Flexion (S2) 4+ Good+ Extension (L3) 4+ Good+ Left Flexion (S2) 4+ Good+ Extension (L3) 4+ Good+ Ankle/Foot Strength Ankle and Foot Manual Muscle Testing Right Dorsiflexion (L4) 5 Normal Plantarflexion (S1) 5 Normal Left Dorsiflexion (L4) 4 Good Plantarflexion (S1) 4 Good Toe Strength Toe Manual Muscle Testing Right Great Toe Flexion 4+ Good+ Left Great Toe Extension 4+ Good+ PT-OP-Q Treatments Start: 02/24/23 14:36 Freq: Status: Active Protocol: Document 03/16/23 08:11 [facility] (Rec: 03/16/23 09:00 [facility] [id number]) Cardio Equipment Recumbent Stepper (Sci-Fit) Duration (Minutes) 7 Resistance 3 Seat Position 9 Other RPM 40-50 Gym Equipment Shuttle Recovery heel raise to toe raise Details bilateral Resistance 25# (1 blue) Reps/Time 2x15, cues for gluteal activation squats Details bilateral, green TB around knees Resistance 50# (2 navy) Shuttle Recovery Platform Stable Reps/Time 2x15, cues for gluteal activation Shuttle Balance chains red Details EO, bal and wt shift fwd/bck, side Reps/Duration 10 min Comments side by side, stride position Therapeutic Exercises Standing Exercises ant tib stretch Reps/Minutes 2x30 HC stretch Reps/Minutes 2x30 Neuro Re-Education Treatment Balance Activities BOSU balance Details WBOS, EO Reps/Duration 3 mine resisted walk Details sidestep hamstring curl Equipment 2# step touch Equipment 2# foam walk Details green, blue, black foam Reps/Duration 2 min Comments parallel bar; cues for no UE use as possible SLS Details Tyron single leg balance Surface firm, green>blue>black foam Equipment handrail Reps/Duration 30s trials Comments RLE>LLE challenge PT-OP-T Assessment and Plan Start: 02/24/23 14:36 Freq: Status: Active Protocol: Document 03/16/23 08:11 [facility] (Rec: 03/16/23 09:00 [facility] [id number]) Physical Therapy Assessment Impairments Impairments Activity Tolerance,Balance, Gait Goals Four Impairment balance dysfunction Impairment Activities-specific balance confidence (ABC) Scale 24% Short Term Goal (STG) Improve ABC score to at least 40% STG Duration 03/31/23 Flight Readiness Technician Goal (LTG) Improve ABC score to at least 60% as measure of improved balance confidence to allow her to return to prior level of function LTG Duration 04/30/23 Three Impairment lacking regular exercise Short Term Goal (STG) Instruct in HEP with emphasis on balance and LE strength STG Duration 03/31/23 Flight Readiness Technician Goal (LTG) Patient to be independent and compliant with HEP for purposes of LE strengthening and balance. LTG Duration 04/30/23 Two Impairment activity intolerance Impairment Patient unable to go hiking safely Flight Readiness Technician Goal (LTG) Patient able to return to hiking with safe use of trekking poles LTG Duration 04/30/23 One Impairment gait instability Impairment Dynamic gait index 54% Short Term Goal (STG) Improve DGI score to at least 64% as measure of improved stability with gait STG Duration 03/31/23 Flight Readiness Technician Goal (LTG) Improve DGI score to at least 75% as measure of improved stability with gait LTG Duration 04/30/23 Progress Towards Goals Progress Towards Goals Progressing Toward Goals Assessment Summary Assessment Progressed to stride stance on shuttle balance and added resisted sidestepping, some discomfort left hip. Physical Therapy Plan Frequency and Duration Frequency of Treatment 2x/Week Duration of treatment (weeks) 8 Plan of Care Start Date 02/28/23 Plan of Care End Date 04/30/23 Therapeutic Interventions Therapeutic Interventions Balance Training,Home Exercise Program,Manual Therapy, Patient/Caregiver Education, Self-Care/Home Management,Soft Tissue Mobilization,Taping, Therapeutic Activities, Therapeutic Exercises Modalities Cold Pack/Ice Massage,Hot Packs Next Visit Focus/Plan Next Note Type Treatment Note Next Visit Plan Cont ther ex progression for balance and strengthening including obstacle course and progression of shuttle balance activities. Review use of trekking poles.
--- NOTE | 2023-03-18 14:46 | PT.OTN ---
Current Diagnoses Other chronic pain (03/18/23) Polyosteoarthritis, unspecified (03/18/23) Low back pain, unspecified (03/18/23) Unsteadiness on feet (03/18/23) Physical Therapy Treatment Note PT-OP-A Visit Information Start: 02/24/23 14:36 Freq: Status: Active Protocol: Document 03/18/23 13:55 NBM (Rec: 03/18/23 14:46 NB [id number]) Out-Patient Physical Therapy Visit Information Visit Information Visit Type Treatment Note Visit Start Time 13:50 Visit Stop Time 14:40 Total Visit Minutes 50 Visit Number 6 Number of LENS COATER Visits 1 PT-OP-B Current Condition Start: 02/24/23 14:36 Freq: Status: Active Protocol: Document 03/16/23 08:11 SAK (Rec: 03/16/23 09:00 SAK [id number]) Current Condition History of Current Condition Onset Date 2018 Current Complaints balance difficulty, weakness, drop foot, anterior hip tightness, poor propr History of Current Condition nerve damage from compression in spine causes balance difficulty, possible drop foot . Prior Treatments and Tests spinal surgery 2019 PT-OP-C Subjective Start: 02/24/23 14:36 Freq: Status: Active Protocol: Document 03/18/23 13:55 NBM (Rec: 03/18/23 14:46 NB [id number]) OP-PT Subjective Patient Comments Patient Comments Haydee reports she is getting over an illness and is very tired but has not had a fever for 24 hours. She was surprised by how sore she was after Wed PT. She wants to proceed with PT today to work on her balance because she thinks PT helps. I have a lot more confident with walking and it has helped, in terms of strength also. Patient Reported Progress Improving PT-OP-D Balance Start: 02/24/23 14:36 Freq: Status: Active Protocol: Document 02/28/23 13:14 SAK (Rec: 03/01/23 17:05 SAK [id number]) Balance Tests Single Limb Standing Single Limb- Right 5 Single Limb- Left 7 Tandem Tandem Standing 12 PT-OP-E Functional Tests Start: 02/24/23 14:36 Freq: Status: Active Protocol: Document 02/28/23 13:14 SAK (Rec: 03/01/23 17:05 SAK [id number]) Functional Tests Dynamic Gait Index (DGI) Score 54 PT-OP-F Manual Assessment Start: 02/24/23 14:36 Freq: Status: Active Protocol: Document 02/28/23 13:14 [facility] (Rec: 03/01/23 17:05 [facility] [id number]) Manual Assessments Soft Tissue Assessment Soft Tissue Mobility Assessment decreased mobility tyron surgical scars lumbar spine PT-OP-G Mobility & Gait Start: 02/24/23 14:36 Freq: Status: Active Protocol: Document 02/28/23 13:14 [facility] (Rec: 03/01/23 17:05 [facility] [id number]) OP Gait Assessment Gait Gait Assistance Required: Independent Distance (Feet) 120 Assistive Devices Assistive Device Straight Cane Gait Deviations General Gait Pattern Decreased Stride Length, Decreased Feet Clearance Factors Limiting Gait Function Factors Limiting Gait Function Decreased Sensation,Decreased Strength,Poor Balance PT-OP-H Neuro Start: 02/24/23 14:36 Freq: Status: Active Protocol: Document 02/28/23 13:14 [facility] (Rec: 03/01/23 17:05 [facility] [id number]) Sensation Evaluation Gross Sensation Gross Sensation Left LE Impaired,Right LE Impaired Sensation Description Paresthesia Comments Summary Comments decreased proprioception tyron LE's PT-OP-M Strength Start: 02/24/23 14:36 Freq: Status: Active Protocol: Document 02/28/23 13:14 [facility] (Rec: 02/28/23 14:06 [facility] [id number]) Hip Strength Hip Manual Muscle Testing Right Flexion (L2) 4 Good Extension (S1) 4- Good- Abduction 4- Good- External Rotation 3+ Fair+ Internal Rotation 4- Good- Left Flexion (L2) 4 Good Extension (S1) 4- Good- Abduction 4- Good- External Rotation 4- Good- Internal Rotation 4- Good- Knee Strength Knee Manual Muscle Testing Right Flexion (S2) 4+ Good+ Extension (L3) 4+ Good+ Left Flexion (S2) 4+ Good+ Extension (L3) 4+ Good+ Ankle/Foot Strength Ankle and Foot Manual Muscle Testing Right Dorsiflexion (L4) 5 Normal Plantarflexion (S1) 5 Normal Left Dorsiflexion (L4) 4 Good Plantarflexion (S1) 4 Good Toe Strength Toe Manual Muscle Testing Right Great Toe Flexion 4+ Good+ Left Great Toe Extension 4+ Good+ PT-OP-Q Treatments Start: 02/24/23 14:36 Freq: Status: Active Protocol: Document 03/18/23 13:55 NBM (Rec: 03/18/23 14:46 [facility] [id number]) Cardio Equipment Recumbent Stepper (Sci-Fit) Duration (Minutes) 6 Resistance 2 Seat Position 9 Other RPM 40-50 Gym Equipment Shuttle Balance chains red Details A/P bal and wt shift Reps/Duration 10 min Comments shoes doffed WBOS, NBOS, stride stance Tyron EO/EC x30s ea WBOS: balloon volleyball Neuro Re-Education Treatment Balance Activities foam walk Details green, blue, black foam Reps/Duration 2 min Comments parallel bar; cues for no UE use as possible SLS Details Tyron single leg balance Surface firm, green>blue>black foam Equipment handrail Reps/Duration 30s trials Comments RLE>LLE challenge occasional toe touch. Self-Care/Home Management Treatment Education Patient Education Safety Other Education Discussed adequate hydration in context of pt's recent illness and muscle soreness. PT-OP-T Assessment and Plan Start: 02/24/23 14:36 Freq: Status: Active Protocol: Document 03/18/23 13:55 NB (Rec: 03/18/23 14:46 [facility] [id number]) Physical Therapy Assessment Goals Four Impairment balance dysfunction Impairment Activities-specific balance confidence (ABC) Scale 24% Short Term Goal (STG) Improve ABC score to at least 40% STG Duration 03/31/23 Glass Worker Goal (LTG) Improve ABC score to at least 60% as measure of improved balance confidence to allow her to return to prior level of function LTG Duration 04/30/23 Three Impairment lacking regular exercise Short Term Goal (STG) Instruct in HEP with emphasis on balance and LE strength STG Duration 03/31/23 Skilled Nursing Goal (LTG) Patient to be independent and compliant with HEP for purposes of LE strengthening and balance. LTG Duration 04/30/23 Two Impairment activity intolerance Impairment Patient unable to go hiking safely Glass Worker Goal (LTG) Patient able to return to hiking with safe use of trekking poles LTG Duration 04/30/23 One Impairment gait instability Impairment Dynamic gait index 54% Short Term Goal (STG) Improve DGI score to at least 64% as measure of improved stability with gait STG Duration 03/31/23 Skilled Nursing Goal (LTG) Improve DGI score to at least 75% as measure of improved stability with gait LTG Duration 04/30/23 Assessment Summary Assessment Haydee presents tired today recovering from recent illness . Discussed adequate hydration in context of pt's recent illness and muscle soreness. Treatment focus on balance. She demonstrates improving confidence on the Shuttle Balance but is challenged w/ eccentric control in staggered stance RLE back >LLE back. She is unable to stand 30s SLS without toe touch. Physical Therapy Plan Frequency and Duration Frequency of Treatment 2x/Week Duration of treatment (weeks) 8 Plan of Care Start Date 02/28/23 Plan of Care End Date 04/30/23 Therapeutic Interventions Therapeutic Interventions Balance Training,Home Exercise Program,Manual Therapy, Patient/Caregiver Education, Self-Care/Home Management,Soft Tissue Mobilization,Taping, Therapeutic Activities, Therapeutic Exercises Modalities Cold Pack/Ice Massage,Hot Packs Next Visit Focus/Plan Next Note Type Treatment Note Next Visit Plan Consider reviewing sleeping positions and pillow supports. POC: Cont ther ex progression for balance and strengthening including obstacle course and progression of shuttle balance activities. Review use of trekking poles.
--- NOTE | 2023-03-22 16:13 | PT.OTN ---
Current Diagnoses Other chronic pain (03/22/23) Polyosteoarthritis, unspecified (03/22/23) Low back pain, unspecified (03/22/23) Unsteadiness on feet (03/22/23) Physical Therapy Treatment Note PT-OP-A Visit Information Start: 02/24/23 14:36 Freq: Status: Active Protocol: Document 03/22/23 15:15 SAK (Rec: 03/22/23 16:13 SAK [id number]) Out-Patient Physical Therapy Visit Information Visit Information Visit Type Treatment Note Visit Start Time 15:15 Visit Stop Time 16:00 Total Visit Minutes 45 Visit Number 7 Number of COMMERCIAL LINES ACCOUNT MANAGER Visits 0 PT-OP-B Current Condition Start: 02/24/23 14:36 Freq: Status: Active Protocol: Document 03/22/23 15:15 SAK (Rec: 03/22/23 16:13 SAK [id number]) Current Condition History of Current Condition Onset Date 2018 Current Complaints balance difficulty, weakness, drop foot, anterior hip tightness, poor propr History of Current Condition nerve damage from compression in spine causes balance difficulty, possible drop foot . Prior Treatments and Tests spinal surgery 2019 PT-OP-C Subjective Start: 02/24/23 14:36 Freq: Status: Active Protocol: Document 03/22/23 15:15 SAK (Rec: 03/22/23 16:13 SAK [id number]) OP-PT Subjective Patient Comments Patient Comments No new c/o. NOt as sore after last session. PT-OP-D Balance Start: 02/24/23 14:36 Freq: Status: Active Protocol: Document 02/28/23 13:14 SAK (Rec: 03/01/23 17:05 SAK [id number]) Balance Tests Single Limb Standing Single Limb- Right 5 Single Limb- Left 7 Tandem Tandem Standing 12 PT-OP-E Functional Tests Start: 02/24/23 14:36 Freq: Status: Active Protocol: Document 02/28/23 13:14 SAK (Rec: 03/01/23 17:05 SAK [id number]) Functional Tests Dynamic Gait Index (DGI) Score 54 PT-OP-F Manual Assessment Start: 02/24/23 14:36 Freq: Status: Active Protocol: Document 02/28/23 13:14 SAK (Rec: 03/01/23 17:05 SAK [id number]) Manual Assessments Soft Tissue Assessment Soft Tissue Mobility Assessment decreased mobility tyron surgical scars lumbar spine PT-OP-G Mobility & Gait Start: 02/24/23 14:36 Freq: Status: Active Protocol: Document 02/28/23 13:14 [facility] (Rec: 03/01/23 17:05 [facility] [id number]) OP Gait Assessment Gait Gait Assistance Required: Independent Distance (Feet) 120 Assistive Devices Assistive Device Straight Cane Gait Deviations General Gait Pattern Decreased Stride Length, Decreased Feet Clearance Factors Limiting Gait Function Factors Limiting Gait Function Decreased Sensation,Decreased Strength,Poor Balance PT-OP-H Neuro Start: 02/24/23 14:36 Freq: Status: Active Protocol: Document 02/28/23 13:14 [facility] (Rec: 03/01/23 17:05 [facility] [id number]) Sensation Evaluation Gross Sensation Gross Sensation Left LE Impaired,Right LE Impaired Sensation Description Paresthesia Comments Summary Comments decreased proprioception tyron LE's PT-OP-M Strength Start: 02/24/23 14:36 Freq: Status: Active Protocol: Document 02/28/23 13:14 [facility] (Rec: 02/28/23 14:06 [facility] [id number]) Hip Strength Hip Manual Muscle Testing Right Flexion (L2) 4 Good Extension (S1) 4- Good- Abduction 4- Good- External Rotation 3+ Fair+ Internal Rotation 4- Good- Left Flexion (L2) 4 Good Extension (S1) 4- Good- Abduction 4- Good- External Rotation 4- Good- Internal Rotation 4- Good- Knee Strength Knee Manual Muscle Testing Right Flexion (S2) 4+ Good+ Extension (L3) 4+ Good+ Left Flexion (S2) 4+ Good+ Extension (L3) 4+ Good+ Ankle/Foot Strength Ankle and Foot Manual Muscle Testing Right Dorsiflexion (L4) 5 Normal Plantarflexion (S1) 5 Normal Left Dorsiflexion (L4) 4 Good Plantarflexion (S1) 4 Good Toe Strength Toe Manual Muscle Testing Right Great Toe Flexion 4+ Good+ Left Great Toe Extension 4+ Good+ PT-OP-Q Treatments Start: 02/24/23 14:36 Freq: Status: Active Protocol: Document 03/22/23 15:15 [facility] (Rec: 03/22/23 16:13 [facility] [id number]) Cardio Equipment Recumbent Stepper (Sci-Fit) Duration (Minutes) 8 Resistance 2 Seat Position 9 Other RPM 40-50 Gym Equipment Shuttle Recovery Unilateral Squats Resistance 25# Shuttle Recovery Platform Stable Reps/Time 15x2 heel raise to toe raise Details bilateral Resistance 25# (1 blue) Reps/Time 2x15, cues for gluteal activation squats Details bilateral, green TB around knees Resistance 50# (2 navy) Shuttle Recovery Platform Stable Reps/Time 2x15, cues for gluteal activation Shuttle Balance chains red Details A/P bal and wt shift Reps/Duration 10 min Comments shoes doffed WBOS, NBOS, stride stance Tyron EO/EC x30s ea WBOS: balloon volleyball Neuro Re-Education Treatment Balance Activities foam walk Details green, blue, black foam Reps/Duration 2 min Comments parallel bar; cues for no UE use as possible SLS Details Tyron single leg balance Surface firm, green>blue>black foam Equipment handrail Reps/Duration 30s trials Comments RLE>LLE challenge occasional toe touch. Self-Care/Home Management Treatment Activities Self-Care/Home Management Activities educated in correct bed positioning using pillows and folded towl; supine and sidelying with patient demonstrating good understanding. PT-OP-T Assessment and Plan Start: 02/24/23 14:36 Freq: Status: Active Protocol: Document 03/22/23 15:15 [facility] (Rec: 03/22/23 16:13 [facility] [id number]) Physical Therapy Assessment Impairments Impairments Activity Tolerance,Balance, Gait Goals Four Impairment balance dysfunction Impairment Activities-specific balance confidence (ABC) Scale 24% Short Term Goal (STG) Improve ABC score to at least 40% STG Duration 03/31/23 Chaplain Resident Goal (LTG) Improve ABC score to at least 60% as measure of improved balance confidence to allow her to return to prior level of function LTG Duration 04/30/23 Three Impairment lacking regular exercise Short Term Goal (STG) Instruct in HEP with emphasis on balance and LE strength STG Duration 03/31/23 Chaplain Resident Goal (LTG) Patient to be independent and compliant with HEP for purposes of LE strengthening and balance. LTG Duration 04/30/23 Two Impairment activity intolerance Impairment Patient unable to go hiking safely Chaplain Resident Goal (LTG) Patient able to return to hiking with safe use of trekking poles LTG Duration 04/30/23 One Impairment gait instability Impairment Dynamic gait index 54% Short Term Goal (STG) Improve DGI score to at least 64% as measure of improved stability with gait STG Duration 03/31/23 Chaplain Resident Goal (LTG) Improve DGI score to at least 75% as measure of improved stability with gait LTG Duration 04/30/23 Assessment Summary Assessment Improving activity tolerance. Educated in bed positioning with use of pillows and towel; demonstrated good understanding. Progressed to single leg on shuttle leg press with good tolerance. Physical Therapy Plan Frequency and Duration Frequency of Treatment 2x/Week Duration of treatment (weeks) 8 Plan of Care Start Date 02/28/23 Plan of Care End Date 04/30/23 Therapeutic Interventions Therapeutic Interventions Balance Training,Home Exercise Program,Manual Therapy, Patient/Caregiver Education, Self-Care/Home Management,Soft Tissue Mobilization,Taping, Therapeutic Activities, Therapeutic Exercises Modalities Cold Pack/Ice Massage,Hot Packs Next Visit Focus/Plan Next Note Type Treatment Note Next Visit Plan Review use of trekking poles, continue therapeutic execise progression for strengthening and balance. Obstacle course. FRANCHESKA Patterson.
--- NOTE | 2023-03-28 14:45 | PT.OTN ---
Current Diagnoses Other chronic pain (03/28/23) Polyosteoarthritis, unspecified (03/28/23) Low back pain, unspecified (03/28/23) Unsteadiness on feet (03/28/23) Physical Therapy Treatment Note PT-OP-A Visit Information Start: 02/24/23 14:36 Freq: Status: Active Protocol: Document 03/28/23 13:41 NBM (Rec: 03/28/23 14:34 NBM [id number]) Out-Patient Physical Therapy Visit Information Visit Information Visit Type Treatment Note Visit Start Time 13:45 Visit Stop Time 14:35 Total Visit Minutes 50 Visit Number 8 Number of BUS INFO CONSULTANT Visits 1 PT-OP-B Current Condition Start: 02/24/23 14:36 Freq: Status: Active Protocol: Document 03/22/23 15:15 SAK (Rec: 03/22/23 16:13 SAK [id number]) Current Condition History of Current Condition Onset Date 2019 Current Complaints balance difficulty, weakness, drop foot, anterior hip tightness, poor propr History of Current Condition nerve damage from compression in spine causes balance difficulty, possible drop foot . Prior Treatments and Tests spinal surgery 2019 PT-OP-C Subjective Start: 02/24/23 14:36 Freq: Status: Active Protocol: Document 03/28/23 13:41 NBM (Rec: 03/28/23 14:34 NB [id number]) OP-PT Subjective Patient Comments Patient Comments Pt reports she's using sleeping supports and she had one day where she was bent over a lot in the attic moving boxes and then was sore from that. She plans to get new trekking poles. Patient Questionnaires ABC- Activity Specific Balance Confidence Scale ABC Score 1210/16=75.625 ABC Functional Impairment 60 to <80% Impaired (Score 21- 40) PT-OP-D Balance Start: 02/24/23 14:36 Freq: Status: Active Protocol: Document 02/28/23 13:14 SAK (Rec: 03/01/23 17:05 SAK [id number]) Balance Tests Single Limb Standing Single Limb- Right 5 Single Limb- Left 7 Tandem Tandem Standing 12 PT-OP-E Functional Tests Start: 02/24/23 14:36 Freq: Status: Active Protocol: Document 02/28/23 13:14 SAK (Rec: 03/01/23 17:05 SAK [id number]) Functional Tests Dynamic Gait Index (DGI) Score 54 PT-OP-F Manual Assessment Start: 02/24/23 14:36 Freq: Status: Active Protocol: Document 02/28/23 13:14 [facility] (Rec: 03/01/23 17:05 [facility] [id number]) Manual Assessments Soft Tissue Assessment Soft Tissue Mobility Assessment decreased mobility tyron surgical scars lumbar spine PT-OP-G Mobility & Gait Start: 02/24/23 14:36 Freq: Status: Active Protocol: Document 02/28/23 13:14 [facility] (Rec: 03/01/23 17:05 [facility] [id number]) OP Gait Assessment Gait Gait Assistance Required: Independent Distance (Feet) 120 Assistive Devices Assistive Device Straight Cane Gait Deviations General Gait Pattern Decreased Stride Length, Decreased Feet Clearance Factors Limiting Gait Function Factors Limiting Gait Function Decreased Sensation,Decreased Strength,Poor Balance PT-OP-H Neuro Start: 02/24/23 14:36 Freq: Status: Active Protocol: Document 02/28/23 13:14 [facility] (Rec: 03/01/23 17:05 [facility] [id number]) Sensation Evaluation Gross Sensation Gross Sensation Left LE Impaired,Right LE Impaired Sensation Description Paresthesia Comments Summary Comments decreased proprioception tyron LE's PT-OP-M Strength Start: 02/24/23 14:36 Freq: Status: Active Protocol: Document 02/28/23 13:14 [facility] (Rec: 02/28/23 14:06 [facility] [id number]) Hip Strength Hip Manual Muscle Testing Right Flexion (L2) 4 Good Extension (S1) 4- Good- Abduction 4- Good- External Rotation 3+ Fair+ Internal Rotation 4- Good- Left Flexion (L2) 4 Good Extension (S1) 4- Good- Abduction 4- Good- External Rotation 4- Good- Internal Rotation 4- Good- Knee Strength Knee Manual Muscle Testing Right Flexion (S2) 4+ Good+ Extension (L3) 4+ Good+ Left Flexion (S2) 4+ Good+ Extension (L3) 4+ Good+ Ankle/Foot Strength Ankle and Foot Manual Muscle Testing Right Dorsiflexion (L4) 5 Normal Plantarflexion (S1) 5 Normal Left Dorsiflexion (L4) 4 Good Plantarflexion (S1) 4 Good Toe Strength Toe Manual Muscle Testing Right Great Toe Flexion 4+ Good+ Left Great Toe Extension 4+ Good+ PT-OP-Q Treatments Start: 02/24/23 14:36 Freq: Status: Active Protocol: Document 03/28/23 13:41 [facility] (Rec: 03/28/23 14:34 [facility] [id number]) Cardio Equipment Recumbent Stepper (Sci-Fit) Duration (Minutes) 8 Resistance 2 Seat Position 8 Other RPM 45-55 Gym Equipment Shuttle Recovery Unilateral Squats Details shoes doffed Resistance 25# Shuttle Recovery Platform Stable Reps/Time 15x2 squats Details bilateral - shoes doffed Resistance 50# (2 navy) Shuttle Recovery Platform Stable Reps/Time 2x15, cues for gluteal activation Shuttle Balance chains red Details A/P bal and wt shift, CGA Reps/Duration 12 min Comments shoes doffed WBOS, NBOS, stride stance Tyron perturbations EO/EC x30s ea A/p weightshift WBOS and stride tyron Neuro Re-Education Treatment Balance Activities foam walk Details green>blue>black>blue>green Equipment handrail prn Reps/Duration x6 Comments parallel bar; cues for no UE use as possible SLS Details Tyron single leg balance Surface firm, blue foam Equipment handrail Reps/Duration 30s trials Comments RLE>LLE challenge occasional toe touch. PT-OP-T Assessment and Plan Start: 02/24/23 14:36 Freq: Status: Active Protocol: Document 03/28/23 13:41 [facility] (Rec: 03/28/23 14:34 [facility] [id number]) Physical Therapy Assessment Goals Four Impairment balance dysfunction Impairment Activities-specific balance confidence (ABC) Scale 24% Short Term Goal (STG) Improve ABC score to at least 40% 03/28/23: 16=75.6% - GOAL MET STG Duration 03/31/23 - 03/28/23 GOAL MET [place] Goal (LTG) Improve ABC score to at least 60% as measure of improved balance confidence to allow her to return to prior level of function 03/28/23: 0/16=75.6% - GOAL MET LTG Duration 04/30/23 - 03/28/23 GOAL MET Three Impairment lacking regular exercise Short Term Goal (STG) Instruct in HEP with emphasis on balance and LE strength STG Duration 03/31/23 Fdc Goal (LTG) Patient to be independent and compliant with HEP for purposes of LE strengthening and balance. LTG Duration 04/30/23 Two Impairment activity intolerance Impairment Patient unable to go hiking safely [place] Goal (LTG) Patient able to return to hiking with safe use of trekking poles LTG Duration 04/30/23 One Impairment gait instability Impairment Dynamic gait index 54% Short Term Goal (STG) Improve DGI score to at least 64% as measure of improved stability with gait STG Duration 03/31/23 Fdc Goal (LTG) Improve DGI score to at least 75% as measure of improved stability with gait LTG Duration 04/30/23 Progress Towards Goals Progress Towards Goals Progressing Toward Goals Progress Comments 03/28/23 STG & LTG Goal Four balance dysfunction ABC - GOAL MET Assessment Summary Assessment Haydee demonstrates progress and meets STG and LTG Goal Four for balance dysfunction Improving ABC score to at least 40 % ad 60 % with score today of 76%. Pt self-corrects lower extremity alignment with bilateral and unilateral squats on Shuttle Recovery. She requires CGA-[place] for balance recovery with posterior LOB eyes closed performing anterioposterior weightshifting on Shuttle balance in wide base of support and staggered stance bilaterally. Physical Therapy Plan Frequency and Duration Frequency of Treatment 2x/Week Duration of treatment (weeks) 8 Plan of Care Start Date 02/28/23 Plan of Care End Date 04/30/23 Therapeutic Interventions Therapeutic Interventions Balance Training,Home Exercise Program,Manual Therapy, Patient/Caregiver Education, Self-Care/Home Management,Soft Tissue Mobilization,Taping, Therapeutic Activities, Therapeutic Exercises Modalities Cold Pack/Ice Massage,Hot Packs Next Visit Focus/Plan Next Note Type Treatment Note Next Visit Plan Review use of trekking poles, continue therapeutic execise progression for strengthening and balance. Obstacle course. DGI.
--- NOTE | 2023-04-11 14:45 | PT.OTN ---
Current Diagnoses Other chronic pain (04/11/23) Polyosteoarthritis, unspecified (04/11/23) Low back pain, unspecified (04/11/23) Unsteadiness on feet (04/11/23) Physical Therapy Treatment Note PT-OP-A Visit Information Start: 02/24/23 14:36 Freq: Status: Active Protocol: Document 04/11/23 13:45 SAK (Rec: 04/11/23 14:45 SAK [id number]) Out-Patient Physical Therapy Visit Information Visit Information Visit Type Treatment Note Visit Start Time 13:45 Visit Stop Time 14:30 Total Visit Minutes 45 Visit Number 11 Number of JUNIOR ACCOUNTANT Visits 0 PT-OP-B Current Condition Start: 02/24/23 14:36 Freq: Status: Active Protocol: Document 04/11/23 13:45 SAK (Rec: 04/11/23 14:45 SAK [id number]) Current Condition History of Current Condition Onset Date 2019 Current Complaints balance difficulty, weakness, drop foot, anterior hip tightness, poor propr History of Current Condition nerve damage from compression in spine causes balance difficulty, possible drop foot . Prior Treatments and Tests spinal surgery 2019 PT-OP-C Subjective Start: 02/24/23 14:36 Freq: Status: Active Protocol: Document 04/11/23 13:45 SAK (Rec: 04/11/23 14:45 SAK [id number]) OP-PT Subjective Patient Comments Patient Comments pain 1/10 right side low back and hip. Has been walking but not doing exercises. PT-OP-D Balance Start: 02/24/23 14:36 Freq: Status: Active Protocol: Document 02/28/23 13:14 SAK (Rec: 03/01/23 17:05 SAK [id number]) Balance Tests Single Limb Standing Single Limb- Right 5 Single Limb- Left 7 Tandem Tandem Standing 12 PT-OP-E Functional Tests Start: 02/24/23 14:36 Freq: Status: Active Protocol: Document 02/28/23 13:14 SAK (Rec: 03/01/23 17:05 SAK [id number]) Functional Tests Dynamic Gait Index (DGI) Score 54 PT-OP-F Manual Assessment Start: 02/24/23 14:36 Freq: Status: Active Protocol: Document 02/28/23 13:14 SAK (Rec: 03/01/23 17:05 SAK [id number]) Manual Assessments Soft Tissue Assessment Soft Tissue Mobility Assessment decreased mobility tyron surgical scars lumbar spine PT-OP-G Mobility & Gait Start: 02/24/23 14:36 Freq: Status: Active Protocol: Document 02/28/23 13:[address] [facility] (Rec: 03/01/23 17:[address] [facility] [id number]) OP Gait Assessment Gait Gait Assistance Required: Independent Distance (Feet) 120 Assistive Devices Assistive Device Straight Cane Gait Deviations General Gait Pattern Decreased Stride Length, Decreased Feet Clearance Factors Limiting Gait Function Factors Limiting Gait Function Decreased Sensation,Decreased Strength,Poor Balance PT-OP-H Neuro Start: 02/24/23 14:36 Freq: Status: Active Protocol: Document 02/28/23 13:[address] [facility] (Rec: 03/01/23 17:[address] [facility] [id number]) Sensation Evaluation Gross Sensation Gross Sensation Left LE Impaired,Right LE Impaired Sensation Description Paresthesia Comments Summary Comments decreased proprioception tyron LE's PT-OP-M Strength Start: 02/24/23 14:36 Freq: Status: Active Protocol: Document 02/28/23 13:[address] [facility] (Rec: 02/28/23 14:[address] [facility] [id number]) Hip Strength Hip Manual Muscle Testing Right Flexion (L2) 4 Good Extension (S1) 4- Good- Abduction 4- Good- External Rotation 3+ Fair+ Internal Rotation 4- Good- Left Flexion (L2) 4 Good Extension (S1) 4- Good- Abduction 4- Good- External Rotation 4- Good- Internal Rotation 4- Good- Knee Strength Knee Manual Muscle Testing Right Flexion (S2) 4+ Good+ Extension (L3) 4+ Good+ Left Flexion (S2) 4+ Good+ Extension (L3) 4+ Good+ Ankle/Foot Strength Ankle and Foot Manual Muscle Testing Right Dorsiflexion (L4) 5 Normal Plantarflexion (S1) 5 Normal Left Dorsiflexion (L4) 4 Good Plantarflexion (S1) 4 Good Toe Strength Toe Manual Muscle Testing Right Great Toe Flexion 4+ Good+ Left Great Toe Extension 4+ Good+ PT-OP-Q Treatments Start: 02/24/23 14:36 Freq: Status: Active Protocol: Document 04/11/23 13:[address] [facility] (Rec: 04/11/23 14:[address] [facility] [id number]) Gym Equipment Shuttle Balance chains red Reps/Duration 12 min Comments shoes doffed, EO WBOS, NBOS, stride stance Tyron perturbations A/p weightshift WBOS and stride tyron Therapeutic Exercises Supine Exercises happy baby Reps/Minutes 2x30 IT band stretch Reps/Minutes 2x30 HS stretch Reps/Minutes 2x30 figure 4 stretch Reps/Minutes 2x30 bridge Supine Exercise Name dbl, single Reps/Minutes 5x ea Comments cues for min lift with single Sitting Exercises DF Sitting Exercise Name resisted Side bilateral Resistance Lvl 1 Tb Reps/Minutes 2x10 Standing Exercises quad stretch Equipment Used chair Reps/Minutes 2x30 toe raises Reps/Minutes 10x hip flexor stretch Side bilateral Equipment Used handrail Reps/Minutes x30s ea Comments cues for form heel raises Reps/Minutes 10x PT-OP-T Assessment and Plan Start: 02/24/23 14:36 Freq: Status: Active Protocol: Document 04/11/23 13:45 SAK (Rec: 04/11/23 14:45 SAK [id number]) Physical Therapy Assessment Goals Four Impairment balance dysfunction Impairment Activities-specific balance confidence (ABC) Scale 24% Short Term Goal (STG) Improve ABC score to at least 40% 03/28/23: 1210/16=75.6% - GOAL MET STG Duration 03/31/23 - 03/28/23 GOAL MET Auto Striper Goal (LTG) Improve ABC score to at least 60% as measure of improved balance confidence to allow her to return to prior level of function 03/28/23: 1210/16=75.6% - GOAL MET LTG Duration 04/30/23 - 03/28/23 GOAL MET Three Impairment lacking regular exercise Short Term Goal (STG) Instruct in HEP with emphasis on balance and LE strength 04/11/24: good goal progress, continue progression of HEP STG Duration 03/31/23 Intermediate Goal (LTG) Patient to be independent and compliant with HEP for purposes of LE strengthening and balance. LTG Duration 04/30/23 Two Impairment activity intolerance Impairment Patient unable to go hiking safely Auto Striper Goal (LTG) Patient able to return to hiking with safe use of trekking poles 04/11/24: demonstrates appropriate use of trekking poles after review. Is taking walks again, but hasn't resumed hiking yet. LTG Duration 04/30/23 One Impairment gait instability Impairment Dynamic gait index 54% Short Term Goal (STG) Improve DGI score to at least 64% as measure of improved stability with gait 04/11/23:goal met STG Duration 03/31/23 Auto Striper Goal (LTG) Improve DGI score to at least 75% as measure of improved stability with gait LTG Duration 04/30/23 Progress Towards Goals Progress Towards Goals Progressing Toward Goals Assessment Summary Assessment Good progress toward goals as noted last session, with DGI today. Progression of stretching exercises today with good tolerance. Patient encouraged to set timer for more consistent performance of HEP, she was in agreement. Good sequencing with use of trekking poles, with review of correct barge worker for safety and best use. Physical Therapy Plan Frequency and Duration Frequency of Treatment 2x/Week Duration of treatment (weeks) 8 Plan of Care Start Date 02/28/23 Plan of Care End Date 04/30/23 Therapeutic Interventions Therapeutic Interventions Balance Training,Home Exercise Program,Manual Therapy, Patient/Caregiver Education, Self-Care/Home Management,Soft Tissue Mobilization,Taping, Therapeutic Activities, Therapeutic Exercises Modalities Cold Pack/Ice Massage,Hot Packs Next Visit Focus/Plan Next Note Type Treatment Note Next Visit Plan obstacle course, challenged balance, issue updated written HEP as needed.
--- NOTE | 2023-04-22 16:41 | PT.OTN ---
Current Diagnoses Other chronic pain (04/22/23) Polyosteoarthritis, unspecified (04/22/23) Low back pain, unspecified (04/22/23) Unsteadiness on feet (04/22/23) Physical Therapy Treatment Note PT-OP-A Visit Information Start: 02/24/23 14:36 Freq: Status: Active Protocol: Document 04/22/23 14:53 NBM (Rec: 04/22/23 16:40 NB [id number]) Out-Patient Physical Therapy Visit Information Visit Information Visit Type Treatment Note Visit Start Time 15:18 Visit Stop Time 16:08 Total Visit Minutes 50 Visit Number 12 Number of STAFF TECHNOLOGIST Visits 1 Evaluation Information Evaluation Date 02/28/23 PT-OP-B Current Condition Start: 02/24/23 14:36 Freq: Status: Active Protocol: Document 04/11/23 13:45 SAK (Rec: 04/11/23 14:45 SAK [id number]) Current Condition History of Current Condition Onset Date 2018 Current Complaints balance difficulty, weakness, drop foot, anterior hip tightness, poor propr History of Current Condition nerve damage from compression in spine causes balance difficulty, possible drop foot . Prior Treatments and Tests spinal surgery 2019 PT-OP-C Subjective Start: 02/24/23 14:36 Freq: Status: Active Protocol: Document 04/22/23 14:53 NBM (Rec: 04/22/23 16:40 NB [id number]) OP-PT Subjective Patient Comments Patient Comments Haydee reports she's feeling better in general and has been walking a lot thrifting. She feels better if she's walking at a normal or fast pace instead of slowing down for a cane. She felt like she was walking better at night than during the day when attending a festival. Patient Reported Progress Improving PT-OP-D Balance Start: 02/24/23 14:36 Freq: Status: Active Protocol: Document 02/28/23 13:14 SAK (Rec: 03/01/23 17:05 SAK [id number]) Balance Tests Single Limb Standing Single Limb- Right 5 Single Limb- Left 7 Tandem Tandem Standing 12 PT-OP-E Functional Tests Start: 02/24/23 14:36 Freq: Status: Active Protocol: Document 02/28/23 13:14 SAK (Rec: 03/01/23 17:05 SAK [id number]) Functional Tests Dynamic Gait Index (DGI) Score 54 PT-OP-F Manual Assessment Start: 02/24/23 14:36 Freq: Status: Active Protocol: Document 02/28/23 13:14 [facility] (Rec: 03/01/23 17:05 [facility] [id number]) Manual Assessments Soft Tissue Assessment Soft Tissue Mobility Assessment decreased mobility jered surgical scars lumbar spine PT-OP-G Mobility & Gait Start: 02/24/23 14:36 Freq: Status: Active Protocol: Document 02/28/23 13:14 [facility] (Rec: 03/01/23 17:05 [facility] [id number]) OP Gait Assessment Gait Gait Assistance Required: Independent Distance (Feet) 120 Assistive Devices Assistive Device Straight Cane Gait Deviations General Gait Pattern Decreased Stride Length, Decreased Feet Clearance Factors Limiting Gait Function Factors Limiting Gait Function Decreased Sensation,Decreased Strength,Poor Balance PT-OP-H Neuro Start: 02/24/23 14:36 Freq: Status: Active Protocol: Document 02/28/23 13:14 [facility] (Rec: 03/01/23 17:05 [facility] [id number]) Sensation Evaluation Gross Sensation Gross Sensation Left LE Impaired,Right LE Impaired Sensation Description Paresthesia Comments Summary Comments decreased proprioception jered LE's PT-OP-M Strength Start: 02/24/23 14:36 Freq: Status: Active Protocol: Document 02/28/23 13:14 [facility] (Rec: 02/28/23 14:06 [facility] [id number]) Hip Strength Hip Manual Muscle Testing Right Flexion (L2) 4 Good Extension (S1) 4- Good- Abduction 4- Good- External Rotation 3+ Fair+ Internal Rotation 4- Good- Left Flexion (L2) 4 Good Extension (S1) 4- Good- Abduction 4- Good- External Rotation 4- Good- Internal Rotation 4- Good- Knee Strength Knee Manual Muscle Testing Right Flexion (S2) 4+ Good+ Extension (L3) 4+ Good+ Left Flexion (S2) 4+ Good+ Extension (L3) 4+ Good+ Ankle/Foot Strength Ankle and Foot Manual Muscle Testing Right Dorsiflexion (L4) 5 Normal Plantarflexion (S1) 5 Normal Left Dorsiflexion (L4) 4 Good Plantarflexion (S1) 4 Good Toe Strength Toe Manual Muscle Testing Right Great Toe Flexion 4+ Good+ Left Great Toe Extension 4+ Good+ PT-OP-Q Treatments Start: 02/24/23 14:36 Freq: Status: Active Protocol: Document 04/22/23 14:53 NB (Rec: 04/22/23 16:40 [facility] [id number]) Gym Equipment Shuttle Recovery Unilateral Squats Details shoes doffed Resistance 37# Shuttle Recovery Platform Stable Reps/Time 15x2 squats Details bilateral - shoes doffed Resistance 62# (2 navy) Shuttle Recovery Platform Stable Reps/Time 2x15, cues for gluteal activation Therapeutic Exercises Supine Exercises happy baby Reps/Minutes 2x30 IT band stretch Reps/Minutes 2x30 HS stretch Side bilateral Equipment Used on Shuttle Recovery Reps/Minutes 2x30 figure 4 stretch Side bilateral Equipment Used on Shuttle Recovery Reps/Minutes 2x30 Standing Exercises heel raises Reps/Minutes 20x Self-Care/Home Management Treatment Education Patient Education Body Mechanics,Home Exercise Program,Pain Management, Posture Other Education -Discussion re: calf cramping w/ bed positioning using pillow support under knees; pt educated to add pillow supports at foot board to place feet into neutral foot position instead of PF to avoid gastrocnemius shortening with sleep. -Discussion to incorporate balance HEP with handhold for safety into routine such as brushing teeth using toothbrush timer. -Pt i/s in self-STM with rolling pin to quads, ITB, HS and calf with positive feedback response - HO given. PT-OP-T Assessment and Plan Start: 02/24/23 14:36 Freq: Status: Active Protocol: Document 04/22/23 14:53 [facility] (Rec: 04/22/23 16:40 [facility] [id number]) Physical Therapy Assessment Goals Four Impairment balance dysfunction Impairment Activities-specific balance confidence (ABC) Scale 24% Short Term Goal (STG) Improve ABC score to at least 40% 03/28/23: 0/16=75.6% - GOAL MET STG Duration 03/31/23 - 03/28/23 GOAL MET Mcc Goal (LTG) Improve ABC score to at least 60% as measure of improved balance confidence to allow her to return to prior level of function 03/28/23: 1210/16=75.6% - GOAL MET LTG Duration 04/30/23 - 03/28/23 GOAL MET Three Impairment lacking regular exercise Short Term Goal (STG) Instruct in HEP with emphasis on balance and LE strength 12/11/24: good goal progress, continue progression of HEP 04/22/23: Added to HEP: self- STM to ITB, Quads, HS, and calf - HO given. STG Duration 03/31/23 Mcc Goal (LTG) Patient to be independent and compliant with HEP for purposes of LE strengthening and balance. LTG Duration 04/30/23 Two Impairment activity intolerance Impairment Patient unable to go hiking safely Mcc Goal (LTG) Patient able to return to hiking with safe use of trekking poles 04/11/24: demonstrates appropriate use of trekking poles after review. Is taking walks again, but hasn't resumed hiking yet. LTG Duration 04/30/23 One Impairment gait instability Impairment Dynamic gait index 54% Short Term Goal (STG) Improve DGI score to at least 64% as measure of improved stability with gait 04/11/23:goal met STG Duration 03/31/23 Executive Administrative Asst Goal (LTG) Improve DGI score to at least 75% as measure of improved stability with gait LTG Duration 04/30/23 Assessment Summary Assessment Treatment focus today on LE strengthening and stretching, and education. Haydee continues to progress as with increased resistance on shuttle recovery from 50#>62# bilaterally and 25#>37# unilaterally. Discussion re: calf cramping w/ bed positioning using pillow support under knees; pt educated to add pillow supports at foot board to place feet into neutral position instead of PF to avoid gastrocnemius shortening with sleep. Discussion to incorporate balance HEP with handhold for safety into routine such as brushing teeth using toothbrush timer. Pt i/ s in self-STM with rolling pin to quads, ITB, HS and calf with positive feedback response - HO given. Physical Therapy Plan Frequency and Duration Frequency of Treatment 2x/Week Duration of treatment (weeks) 8 Plan of Care Start Date 02/28/23 Plan of Care End Date 04/30/23 Therapeutic Interventions Therapeutic Interventions Balance Training,Home Exercise Program,Manual Therapy, Patient/Caregiver Education, Self-Care/Home Management,Soft Tissue Mobilization,Taping, Therapeutic Activities, Therapeutic Exercises Modalities Cold Pack/Ice Massage,Hot Packs Next Visit Focus/Plan Next Note Type Treatment Note Next Visit Plan Consider foam balance w/ rebounder. Check if pt did balance ex w/ tooth brushing. POC: obstacle course, challenged balance, issue updated written HEP as needed.
--- NOTE | 2023-04-26 16:27 | PT.OTN ---
Current Diagnoses Other chronic pain (04/26/23) Polyosteoarthritis, unspecified (04/26/23) Low back pain, unspecified (04/26/23) Unsteadiness on feet (04/26/23) Physical Therapy Treatment Note PT-OP-A Visit Information Start: 02/24/23 14:36 Freq: Status: Active Protocol: Document 04/26/23 14:38 NBM (Rec: 04/26/23 16:22 NB [id number]) Out-Patient Physical Therapy Visit Information Visit Information Visit Type Treatment Note Visit Start Time 14:38 Visit Stop Time 15:28 Total Visit Minutes 50 Visit Number 13 Number of BUS DRIVER/MONITOR Visits 2 Evaluation Information Evaluation Date 02/28/23 PT-OP-B Current Condition Start: 02/24/23 14:36 Freq: Status: Active Protocol: Document 04/11/23 13:45 SAK (Rec: 04/11/23 14:45 SAK [id number]) Current Condition History of Current Condition Onset Date 2019 Current Complaints balance difficulty, weakness, drop foot, anterior hip tightness, poor propr History of Current Condition nerve damage from compression in spine causes balance difficulty, possible drop foot . Prior Treatments and Tests spinal surgery 2019 PT-OP-C Subjective Start: 02/24/23 14:36 Freq: Status: Active Protocol: Document 04/26/23 14:38 NBM (Rec: 04/26/23 16:22 NB [id number]) OP-PT Subjective Patient Comments Patient Comments Haydee reports she tried balance with teeth brushing but struggled with focus and is a perfectionist. She put the pillows at her footboard and hasn't had any more calf cramping. She has not tried self-STM yet but has a massage stick she's hoping to find, but otherwise has a rolling pin. Patient Reported Progress Improving PT-OP-D Balance Start: 02/24/23 14:36 Freq: Status: Active Protocol: Document 02/28/23 13:14 SAK (Rec: 03/01/23 17:05 SAK [id number]) Balance Tests Single Limb Standing Single Limb- Right 5 Single Limb- Left 7 Tandem Tandem Standing 12 PT-OP-E Functional Tests Start: 02/24/23 14:36 Freq: Status: Active Protocol: Document 02/28/23 13:14 SAK (Rec: 03/01/23 17:05 SAK [id number]) Functional Tests Dynamic Gait Index (DGI) Score 54 PT-OP-F Manual Assessment Start: 02/24/23 14:36 Freq: Status: Active Protocol: Document 02/28/23 13:14 [facility] (Rec: 03/01/23 17:05 [facility] [id number]) Manual Assessments Soft Tissue Assessment Soft Tissue Mobility Assessment decreased mobility jered surgical scars lumbar spine PT-OP-G Mobility & Gait Start: 02/24/23 14:36 Freq: Status: Active Protocol: Document 02/28/23 13:14 [facility] (Rec: 03/01/23 17:05 [facility] [id number]) OP Gait Assessment Gait Gait Assistance Required: Independent Distance (Feet) 120 Assistive Devices Assistive Device Straight Cane Gait Deviations General Gait Pattern Decreased Stride Length, Decreased Feet Clearance Factors Limiting Gait Function Factors Limiting Gait Function Decreased Sensation,Decreased Strength,Poor Balance PT-OP-H Neuro Start: 02/24/23 14:36 Freq: Status: Active Protocol: Document 02/28/23 13:14 [facility] (Rec: 03/01/23 17:05 [facility] [id number]) Sensation Evaluation Gross Sensation Gross Sensation Left LE Impaired,Right LE Impaired Sensation Description Paresthesia Comments Summary Comments decreased proprioception jered LE's PT-OP-M Strength Start: 02/24/23 14:36 Freq: Status: Active Protocol: Document 02/28/23 13:14 [facility] (Rec: 02/28/23 14:06 [facility] [id number]) Hip Strength Hip Manual Muscle Testing Right Flexion (L2) 4 Good Extension (S1) 4- Good- Abduction 4- Good- External Rotation 3+ Fair+ Internal Rotation 4- Good- Left Flexion (L2) 4 Good Extension (S1) 4- Good- Abduction 4- Good- External Rotation 4- Good- Internal Rotation 4- Good- Knee Strength Knee Manual Muscle Testing Right Flexion (S2) 4+ Good+ Extension (L3) 4+ Good+ Left Flexion (S2) 4+ Good+ Extension (L3) 4+ Good+ Ankle/Foot Strength Ankle and Foot Manual Muscle Testing Right Dorsiflexion (L4) 5 Normal Plantarflexion (S1) 5 Normal Left Dorsiflexion (L4) 4 Good Plantarflexion (S1) 4 Good Toe Strength Toe Manual Muscle Testing Right Great Toe Flexion 4+ Good+ Left Great Toe Extension 4+ Good+ PT-OP-Q Treatments Start: 02/24/23 14:36 Freq: Status: Active Protocol: Document 04/26/23 14:38 NB (Rec: 04/26/23 16:22 [facility] [id number]) Gym Equipment Shuttle Rebound Blue Foam Cusion Exercise Details 2 foam DL> SLS jered w/ 500g green ball Reps/Duration x15ea w/ toe touch between Comments cues for gluteal activation with improved control Therapeutic Exercises Standing Exercises calf stretch Standing Exercise Name 1. gastroc 2. soleus Side bilateral Equipment Used handrail Reps/Minutes 2x30s ea quad stretch Equipment Used chair, wall, stairs w/ handrail Reps/Minutes 2x30 Comments Trialed wall and stairs d/t pt having plantar fascia pain ant tib stretch Standing Exercise Name verbal review heel raises Reps/Minutes 20x Neuro Re-Education Treatment Balance Activities Corner balance Details HEP review Surface firm Equipment handrail, chair to L, chair in front, SBA>CGA Comments NBOS, Staggered jered, semi- tandem: EO/EC, head turns, EC w/ head turns x30s ea, CONTRIBUTION SOLICITOR prn PT-OP-T Assessment and Plan Start: 02/24/23 14:36 Freq: Status: Active Protocol: Document 04/26/23 14:38 NB (Rec: 04/26/23 16:22 [facility] [id number]) Physical Therapy Assessment Goals Four Impairment balance dysfunction Impairment Activities-specific balance confidence (ABC) Scale 24% Short Term Goal (STG) Improve ABC score to at least 40% 03/28/23: 1210/16=75.6% - GOAL MET STG Duration 03/31/23 - 03/28/23 GOAL MET Lobby Attendant Goal (LTG) Improve ABC score to at least 60% as measure of improved balance confidence to allow her to return to prior level of function 03/28/23: 1210/16=75.6% - GOAL MET LTG Duration 04/30/23 - 03/28/23 GOAL MET Three Impairment lacking regular exercise Short Term Goal (STG) Instruct in HEP with emphasis on balance and LE strength 04/11/24: good goal progress, continue progression of HEP 04/22/23: Added to HEP: self- STM to ITB, Quads, HS, and calf - HO given. STG Duration 03/31/23 Lobby Attendant Goal (LTG) Patient to be independent and compliant with HEP for purposes of LE strengthening and balance. LTG Duration 04/30/23 Two Impairment activity intolerance Impairment Patient unable to go hiking safely Skilled Nursing Goal (LTG) Patient able to return to hiking with safe use of trekking poles 04/11/24: demonstrates appropriate use of trekking poles after review. Is taking walks again, but hasn't resumed hiking yet. 04/26/23: Pt is encouraged to pursue hiking group w/ trekking poles that she has been interested in joining. LTG Duration 04/30/23 One Impairment gait instability Impairment Dynamic gait index 54% Short Term Goal (STG) Improve DGI score to at least 64% as measure of improved stability with gait 04/11/23:goal met STG Duration 03/31/23 Skilled Nursing Goal (LTG) Improve DGI score to at least 75% as measure of improved stability with gait LTG Duration 04/30/23 Assessment Summary Assessment Treatment focus on LE stretching, balance and HEP review. Haydee is able to demonstrate improving confidence and performance w/ SL balance bilaterally on 2 foam with rebounder when cued for gluteal activation. She tolerates incorporation of headturns with eyes closed x30s in NBOS, semitandem, and staggered stance jered and is challenged most w/ staggered stance bilaterally w/ R finger touch and L LOB w/ self recovery x2. She is very tight through soleus and hip flexors and is instructed in soleus stretch and hip flexor stretch alternative at wall or stairs due to complaint of plantar fascia pain when using chair. She is encouraged to try walking/hiking group she has been interested in joining with treEverpurseing poles. Physical Therapy Plan Frequency and Duration Frequency of Treatment 2x/Week Duration of treatment (weeks) 8 Plan of Care Start Date 02/28/23 Plan of Care End Date 04/30/23 Therapeutic Interventions Therapeutic Interventions Balance Training,Home Exercise Program,Manual Therapy, Patient/Caregiver Education, Self-Care/Home Management,Soft Tissue Mobilization,Taping, Therapeutic Activities, Therapeutic Exercises Modalities Cold Pack/Ice Massage,Hot Packs Next Visit Focus/Plan Next Note Type Treatment Note Next Visit Plan DGI for LTG 1. Check on HEP ex 's in preparation for d/c. POC: obstacle course, challenged balance, issue updated written HEP as needed.
--- NOTE | 2023-04-29 16:18 | PT.OTN ---
Current Diagnoses Other chronic pain (04/29/23) Polyosteoarthritis, unspecified (04/29/23) Low back pain, unspecified (04/29/23) Unsteadiness on feet (04/29/23) Physical Therapy Treatment Note PT-OP-A Visit Information Start: 02/24/23 14:36 Freq: Status: Active Protocol: Document 04/29/23 14:33 NBM (Rec: 04/29/23 16:18 NBM [id number]) Out-Patient Physical Therapy Visit Information Visit Information Visit Type Treatment Note Visit Start Time 14:32 Visit Stop Time 15:20 Total Visit Minutes 48 Visit Number 14 Number of CUSTOMER ORDER CLERK Visits 3 PT-OP-B Current Condition Start: 02/24/23 14:36 Freq: Status: Active Protocol: Document 04/11/23 13:45 SAK (Rec: 04/11/23 14:45 SAK [id number]) Current Condition History of Current Condition Onset Date 2018 Current Complaints balance difficulty, weakness, drop foot, anterior hip tightness, poor propr History of Current Condition nerve damage from compression in spine causes balance difficulty, possible drop foot . Prior Treatments and Tests spinal surgery 2019 PT-OP-C Subjective Start: 02/24/23 14:36 Freq: Status: Active Protocol: Document 04/29/23 14:33 NBM (Rec: 04/29/23 16:18 NBM [id number]) OP-PT Subjective Patient Comments Patient Comments Haydee reports she is excited to graduate from PT. She performed home ex's for the past several days and went walking yesterday and today. She was tired after the last visit and thinks this was from the rebounder ball toss. She is walking a lot more and a lot faster around town and feels good about that. Patient Reported Progress Improving PT-OP-D Balance Start: 02/24/23 14:36 Freq: Status: Active Protocol: Document 02/28/23 13:14 SAK (Rec: 03/01/23 17:05 SAK [id number]) Balance Tests Single Limb Standing Single Limb- Right 5 Single Limb- Left 7 Tandem Tandem Standing 12 PT-OP-E Functional Tests Start: 02/24/23 14:36 Freq: Status: Active Protocol: Document 04/29/23 14:33 NBM (Rec: 04/29/23 16:18 NBM [id number]) Functional Tests Dynamic Gait Index (DGI) Score 22 - shoes doffed consistent with previous assessment DGI Impairment Rating 1 to <20% Impaired (Score 20- 23) PT-OP-F Manual Assessment Start: 02/24/23 14:36 Freq: Status: Active Protocol: Document 02/28/23 13:14 SAK (Rec: 03/01/23 17:05 [facility] [id number]) Manual Assessments Soft Tissue Assessment Soft Tissue Mobility Assessment decreased mobility jered surgical scars lumbar spine PT-OP-G Mobility & Gait Start: 02/24/23 14:36 Freq: Status: Active Protocol: Document 02/28/23 13:14 [facility] (Rec: 03/01/23 17:05 [facility] [id number]) OP Gait Assessment Gait Gait Assistance Required: Independent Distance (Feet) 120 Assistive Devices Assistive Device Straight Cane Gait Deviations General Gait Pattern Decreased Stride Length, Decreased Feet Clearance Factors Limiting Gait Function Factors Limiting Gait Function Decreased Sensation,Decreased Strength,Poor Balance PT-OP-H Neuro Start: 02/24/23 14:36 Freq: Status: Active Protocol: Document 02/28/23 13:14 [facility] (Rec: 03/01/23 17:05 [facility] [id number]) Sensation Evaluation Gross Sensation Gross Sensation Left LE Impaired,Right LE Impaired Sensation Description Paresthesia Comments Summary Comments decreased proprioception jreed LE's PT-OP-M Strength Start: 02/24/23 14:36 Freq: Status: Active Protocol: Document 02/28/23 13:14 [facility] (Rec: 02/28/23 14:06 [facility] [id number]) Hip Strength Hip Manual Muscle Testing Right Flexion (L2) 4 Good Extension (S1) 4- Good- Abduction 4- Good- External Rotation 3+ Fair+ Internal Rotation 4- Good- Left Flexion (L2) 4 Good Extension (S1) 4- Good- Abduction 4- Good- External Rotation 4- Good- Internal Rotation 4- Good- Knee Strength Knee Manual Muscle Testing Right Flexion (S2) 4+ Good+ Extension (L3) 4+ Good+ Left Flexion (S2) 4+ Good+ Extension (L3) 4+ Good+ Ankle/Foot Strength Ankle and Foot Manual Muscle Testing Right Dorsiflexion (L4) 5 Normal Plantarflexion (S1) 5 Normal Left Dorsiflexion (L4) 4 Good Plantarflexion (S1) 4 Good Toe Strength Toe Manual Muscle Testing Right Great Toe Flexion 4+ Good+ Left Great Toe Extension 4+ Good+ PT-OP-Q Treatments Start: 02/24/23 14:36 Freq: Status: Active Protocol: Document 04/29/23 14:33 [facility] (Rec: 04/29/23 16:18 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 PT-OP-T Assessment and Plan Start: 02/24/23 14:36 Freq: Status: Active Protocol: Document 04/29/23 14:33 [facility] (Rec: 04/29/23 16:18 [facility] [id number]) Physical Therapy Assessment Goals Four Impairment balance dysfunction Impairment Activities-specific balance confidence (ABC) Scale 24% Short Term Goal (STG) Improve ABC score to at least 40% 03/28/23: 0/16=75.6% - GOAL MET STG Duration 03/31/23 - 03/28/23 GOAL MET Snf Goal (LTG) Improve ABC score to at least 60% as measure of improved balance confidence to allow her to return to prior level of function 03/28/23: 1209/16=75.6% - GOAL MET LTG Duration 04/30/23 - 03/28/23 GOAL MET Three Impairment lacking regular exercise Short Term Goal (STG) Instruct in HEP with emphasis on balance and LE strength 04/11/24: good goal progress, continue progression of HEP 04/22/23: Added to HEP: self- STM to ITB, Quads, HS, and calf - HO given. 04/29: Pt presents having done HEP for a couple of days and walking two days in a row. STG Duration 03/31/23 - Goal met. Snf Goal (LTG) Patient to be independent and compliant with HEP for purposes of LE strengthening and balance. 04/29/23: Pt presents having done HEP for the past couple of days and walking two days in a row. Added to HEP: hip flexor lunge stretch - HO given. LTG Duration 04/30/23 - Goal met. Two Impairment activity intolerance Impairment Patient unable to go hiking safely Accounting Assistant Goal (LTG) Patient able to return to hiking with safe use of trekking poles 04/11/24: demonstrates appropriate use of trekking poles after review. Is taking walks again, but hasn't resumed hiking yet. 04/26/23: Pt is encouraged to pursue hiking group w/ trekking poles that she has been interested in joining. 04/29/23: Pt has not resumed hiking yet but is taking consistently longer and faster walks without pain. She plans to pursue hiking with hiking group. LTG Duration 04/30/23 - 04/29/23 Pt progressing One Impairment gait instability Impairment Dynamic gait index 54% Short Term Goal (STG) Improve DGI score to at least 64% as measure of improved stability with gait 04/11/23:goal met STG Duration 03/31/23 Accounting Assistant Goal (LTG) Improve DGI score to at least 75% as measure of improved stability with gait 04/29/23: Goal Met - = 91.7%. Shoes doffed consistent with previous assessment. LTG Duration 04/30/23 - Goal met 04/29/23 Assessment Summary Assessment Pt presents for final PT appointment having met all goals except for returning to hiking which she is progressing towards. Haydee meets LTG One of DGI score improved to at least 75% with = 91.7% She presents having met STG and LTG 3 having done HEP for the past couple of days and walking two days in a row without pain. She is unable to perform supine hip flexor stretch in Vinnie position due to bed height so is instructed in lunge position hip flexor stretch, which pt was able to perform bilaterally maintaining balance on plinth. Added to HEP: hip flexor lunge stretch - HO given. We reviewed personal HEP sidelying quad stretch with strap for cues for pillow supports, LE alignment and gentle pull, and self-STM with rolling pin and therawand to ITB, quads, hamstrings and calves in sidesitting and sitting. Pt feels they are progressing to the point where they can continue PT on their own. PT is aware and will complete discharge. Physical Therapy Plan Frequency and Duration Frequency of Treatment 2x/Week Duration of treatment (weeks) 8 Plan of Care Start Date 02/28/23 Plan of Care End Date 04/30/23 Therapeutic Interventions Therapeutic Interventions Balance Training,Home Exercise Program,Manual Therapy, Patient/Caregiver Education, Self-Care/Home Management,Soft Tissue Mobilization,Taping, Therapeutic Activities, Therapeutic Exercises Modalities Cold Pack/Ice Massage,Hot Packs Next Visit Focus/Plan Next Note Type Treatment Note Next Visit Plan Discharge summary needed.
--- NOTE | 2023-05-03 14:39 | PT.OPDS ---
Current Diagnoses Other chronic pain (04/29/23) Polyosteoarthritis, unspecified (04/29/23) Low back pain, unspecified (04/29/23) Unsteadiness on feet (04/29/23) Visit Care Team Role Provider Type Phillip Ramos MD Attending Provider Physician Family Provider Primary Care Provider Referring Provider Specialty: Internal Medicine Address: [address] [place] [address], [facility] Email: [email or web address] Visit Number Visit Number 14 Discharge Summary PT-OP-B Current Condition Start: 02/24/23 14:36 Freq: Status: Active Protocol: Document 04/11/23 13:45 SAK (Rec: 04/11/23 14:45 SAK [id number]) Current Condition History of Current Condition Onset Date 2018 Current Complaints balance difficulty, weakness, drop foot, anterior hip tightness, poor propr History of Current Condition nerve damage from compression in spine causes balance difficulty, possible drop foot . Prior Treatments and Tests spinal surgery 2019 PT-OP-C Subjective Start: 02/24/23 14:36 Freq: Status: Active Protocol: Document 04/29/23 14:33 NBM (Rec: 04/29/23 16:18 NBM [id number]) OP-PT Subjective Patient Comments Patient Comments Haydee reports she is excited to graduate from PT. She performed home ex's for the past several days and went walking yesterday and today. She was tired after the last visit and thinks this was from the rebounder ball toss. She is walking a lot more and a lot faster around town and feels good about that. Patient Reported Progress Improving PT-OP-D Balance Start: 02/24/23 14:36 Freq: Status: Active Protocol: Document 02/28/23 13:14 SAK (Rec: 03/01/23 17:05 SAK [id number]) Balance Tests Single Limb Standing Single Limb- Right 5 Single Limb- Left 7 Tandem Tandem Standing 12 PT-OP-E Functional Tests Start: 02/24/23 14:36 Freq: Status: Active Protocol: Document 04/29/23 14:33 NBM (Rec: 04/29/23 16:18 NBM [id number]) Functional Tests Dynamic Gait Index (DGI) Score 22 - shoes doffed consistent with previous assessment DGI Impairment Rating 1 to <20% Impaired (Score 20- 23) PT-OP-F Manual Assessment Start: 02/24/23 14:36 Freq: Status: Active Protocol: Document 02/28/23 13:14 [facility] (Rec: 03/01/23 17:05 [facility] [id number]) Manual Assessments Soft Tissue Assessment Soft Tissue Mobility Assessment decreased mobility jered surgical scars lumbar spine PT-OP-G Mobility & Gait Start: 02/24/23 14:36 Freq: Status: Active Protocol: Document 02/28/23 13:14 [facility] (Rec: 03/01/23 17:05 [facility] [id number]) OP Gait Assessment Gait Gait Assistance Required: Independent Distance (Feet) 120 Assistive Devices Assistive Device Straight Cane Gait Deviations General Gait Pattern Decreased Stride Length, Decreased Feet Clearance Factors Limiting Gait Function Factors Limiting Gait Function Decreased Sensation,Decreased Strength,Poor Balance PT-OP-H Neuro Start: 02/24/23 14:36 Freq: Status: Active Protocol: Document 02/28/23 13:14 [facility] (Rec: 03/01/23 17:05 [facility] [id number]) Sensation Evaluation Gross Sensation Gross Sensation Left LE Impaired,Right LE Impaired Sensation Description Paresthesia Comments Summary Comments decreased proprioception jered LE's PT-OP-M Strength Start: 02/24/23 14:36 Freq: Status: Active Protocol: Document 02/28/23 13:14 [facility] (Rec: 02/28/23 14:06 [facility] [id number]) Hip Strength Hip Manual Muscle Testing Right Flexion (L2) 4 Good Extension (S1) 4- Good- Abduction 4- Good- External Rotation 3+ Fair+ Internal Rotation 4- Good- Left Flexion (L2) 4 Good Extension (S1) 4- Good- Abduction 4- Good- External Rotation 4- Good- Internal Rotation 4- Good- Knee Strength Knee Manual Muscle Testing Right Flexion (S2) 4+ Good+ Extension (L3) 4+ Good+ Left Flexion (S2) 4+ Good+ Extension (L3) 4+ Good+ Ankle/Foot Strength Ankle and Foot Manual Muscle Testing Right Dorsiflexion (L4) 5 Normal Plantarflexion (S1) 5 Normal Left Dorsiflexion (L4) 4 Good Plantarflexion (S1) 4 Good Toe Strength Toe Manual Muscle Testing Right Great Toe Flexion 4+ Good+ Left Great Toe Extension 4+ Good+ PT-OP-T Assessment and Plan Start: 02/24/23 14:36 Freq: Status: Active Protocol: Document 05/03/23 14:38 [facility] (Rec: 05/03/23 14:39 [facility] [id number]) Physical Therapy Assessment Goals Four Impairment balance dysfunction Impairment Activities-specific balance confidence (ABC) Scale 24% Short Term Goal (STG) Improve ABC score to at least 40% 03/28/23: 1210/16=75.6% - GOAL MET STG Duration 03/31/23 - 03/28/23 GOAL MET Longterm Goal (LTG) Improve ABC score to at least 60% as measure of improved balance confidence to allow her to return to prior level of function 03/28/23: =75.6% - GOAL MET LTG Duration 04/30/23 - 03/28/23 GOAL MET Three Impairment lacking regular exercise Short Term Goal (STG) Instruct in HEP with emphasis on balance and LE strength 04/11/24: good goal progress, continue progression of HEP 04/22/23: Added to HEP: self- STM to ITB, Quads, HS, and calf - HO given. 04/29: Pt presents having done HEP for a couple of days and walking two days in a row. STG Duration 03/31/23 - Goal met. External Grinder Goal (LTG) Patient to be independent and compliant with HEP for purposes of LE strengthening and balance. 04/29/23: Pt presents having done HEP for the past couple of days and walking two days in a row. Added to HEP: hip flexor lunge stretch - HO given. LTG Duration 04/30/23 - Goal met. Two Impairment activity intolerance Impairment Patient unable to go hiking safely External Grinder Goal (LTG) Patient able to return to hiking with safe use of trekking poles 04/11/24: demonstrates appropriate use of trekking poles after review. Is taking walks again, but hasn't resumed hiking yet. 04/26/23: Pt is encouraged to pursue hiking group w/ trekking poles that she has been interested in joining. 04/29/23: Pt has not resumed hiking yet but is taking consistently longer and faster walks without pain. She plans to pursue hiking with hiking group. LTG Duration 04/30/23 - 04/29/23 Pt progressing One Impairment gait instability Impairment Dynamic gait index 54% Short Term Goal (STG) Improve DGI score to at least 64% as measure of improved stability with gait 04/11/23:goal met STG Duration 03/31/23 Longterm Goal (LTG) Improve DGI score to at least 75% as measure of improved stability with gait 04/29/23: Goal Met - / = 91.7%. Shoes doffed consistent with previous assessment. LTG Duration 04/30/23 - Goal met 04/29/23 Assessment Summary Assessment Goals mostly met. Patient to continue with HEP and gradually increase walking and progress to hiking. Ready for discharge from PT.
== END 2023-05-06 08:35 | disposition home or self-care (01) ==
LOC: PHYS 14:30
PROVIDERS: Family Provider Internal Medicine; PCP Internal Medicine; Referring Provider Internal Medicine; Visit Provider Internal Medicine
DX: R26.81 Unsteadiness on feet (principal); M54.50 Low back pain, unspecified; G89.29 Other chronic pain; M15.9 Polyosteoarthritis, unspecified
CPT/HCPCS: 97110; 97112; 97116; 97162; 97530; 97535

== ENCOUNTER → 2023-12-06 15:27 | Outpatient (CLI) | payer MEDICARE, OTHER, SELFPAY ==
[2023-12-06 16:00] LABS: Hematocrit 35.5 % (36-46); Hemoglobin 12.1 g/dL (12.0-16.0); Mean Corpuscular HGB Conc 34.2 % (30-36); Mean Corpuscular Hemoglobin 29.9 PG (26-34); Mean Corpuscular Volume 87.6 fL (80-100); Platelet Count 293 X10^3/uL (150-400); Red Blood Cell Count 4.06 X10^6/uL (4.0-5.2); Red Cell Distribution Width 13.3 % (11.6-14.8); White Blood Cell Count 7.4 X10^3/uL (4.5-11.0)
[2023-12-06 16:15] LABS: Hemoglobin A1C% w Est Avg Glu 5.4 % (4.0-6.0)
[2023-12-06 16:25] LABS: Alanine Aminotransferase 30 IU/L (<35); Albumin 4.4 g/dL (3.5-5.0); Albumin Globulin Ratio 1.6 (1.0-2.8); Alkaline Phosphatase 96 U/L (38-126); Aspartate Aminotransferase 34 IU/L (14-36); BUN Creatinine Ratio 25.4 (6-22); Bilirubin Total 0.4 mg/dL (0.2-1.3); Blood Urea Nitrogen 18 mg/dL (7-17); Calcium 9.3 mg/dL (8.4-10.2); Carbon Dioxide 31 mmol/L (22-32); Chloride 104 mmol/L (98-107); Cholesterol 125 mg/dL (140-199); Estimated Glomerular Filt Rate > 60 mL/min (>60); Globulin 2.7 g/dL (1.7-4.1); Glucose 116 mg/dL (80-110); HDL Cholesterol 54 mg/dL (40-60); HEMOLYSIS < 15 (0-50); LDL Cholesterol Calculated 35 mg/dL (<100); Potassium 3.7 mmol/L (3.4-5.1); Sodium 140 mmol/L (137-145); Total Protein 7.1 g/dL (6.3-8.2); Triglycerides 182 mg/dL (35-150)
== END ==
PROVIDERS: Family Provider Internal Medicine; PCP Internal Medicine; Referring Provider Internal Medicine; Visit Provider Internal Medicine
DX: E78.2 Mixed hyperlipidemia (principal); R73.01 Impaired fasting glucose; I10 Essential (primary) hypertension; F31.81 Bipolar II disorder
CPT/HCPCS: 36415; 80053; 80061; 80175; 83036; 85027

== ENCOUNTER → 2024-01-03 11:29 | Outpatient (CLI) | payer MEDICARE, OTHER, SELFPAY ==
--- NOTE | 2024-01-03 11:30 | DI.RAD.S_ITS ---
PROCEDURE: XR DEXA AXIAL SKELETON INDICATIONS: ROUTINE SCREENING/OSTEOPENIA COMPARISON: None. FINDINGS: Lumbar Spine (L4 excluded due to hardware): Bone mineral density 0.873 g/cm2, T score -1.3, osteopenia. Left Hip: Bone mineral density 0.701 g/cm2, T score -2, osteopenia. Left Femoral Neck: Bone mineral density 0.614 g/cm2, T score -2.1, osteopenia. Left Forearm: Bone mineral density 0.579 g/cm2, T score -1.9, osteopenia. Fracture Risk Calculation (when applicable): 10-year fracture risk of a major osteoporotic fracture 12% and of a hip fracture 2%. (T score greater or equal to -1.0 to: NORMAL) (T score from -1.1 to -2.4: OSTEOPENIA) (T score less than or equal to -2.5: OSTEOPOROSIS) IMPRESSION: Osteopenia. Follow-up guidelines as follows: Osteoporosis: Consider a repeat DEXA and Vertebral Fracture Assessment (VFA) exam in 2 years or sooner if medically necessary, to reassess this patient's status. Osteopenia: Consider a repeat DEXA in 2-3 years to reassess this patient's status, or if there is a new clinical indication. Normal: Consider a repeat DEXA in 5 years or sooner, or if there is a new clinical indication. All treatment decisions require clinical judgment and consideration of individual patient factors, including patient preferences, comorbidities, previous drug use, risk factors not captured in the FRAX model (e.g., frailty, falls, vitamin D deficiency, increased bone turnover, interval significant decline in bone density ) and possible under- or over-estimation of fracture risk by FRAX. In addition, the NOF Guide recommends that FDA-approved medical therapies be considered in postmenopausal women and men age >= 50 years with a: * Hip or vertebral (clinical or morphometric) fracture * T-score of <=-2.5 at the spine or hip * Ten-year fracture probability by FRAX of >= 3% for hip fracture or >=20% for major osteoporotic fracture. People with diagnosed cases of osteoporosis or at high risk for fracture should have regular bone mineral density tests. For patients eligible for Medicare, routine testing is allowed once every 2 years. The testing frequency can be increased to one year for patients who have rapidly progressing disease, those who are receiving or discontinuing medical therapy to restore bone mass, or have additional risk factors. Dictated by: Toby Velazquez M.D. on 01/03/2024 at 14:47 Approved by: Toby Velazquez M.D. on 01/03/2024 at 14:48
--- NOTE | 2024-01-03 11:31 | DI.MG.S_ITS ---
BILATERAL DIGITAL SCREENING MAMMOGRAM 3D/2D WITH CAD: 01/03/2024 CLINICAL: Routine screening. No prior exams were available for comparison. There are scattered areas of fibroglandular density in both breasts (category b / 25%-50% glandular tissue). Current study was also evaluated with a Computer Aided Detection (CAD) system. No significant masses, calcifications, or other findings are seen in either breast. IMPRESSION: NEGATIVE There is no mammographic evidence of malignancy. A 1 year screening mammogram is recommended. Based on the Tyrer Cuzick model (a risk assessment model) the patient's lifetime risk is 6.2% and her 10 year risk is 3.4%. According to the ACR, ACS, and NCCN guidelines, an annual breast MRI exam along with mammogram is recommended if the patient's lifetime risk is 20% or greater. This exam was interpreted at Station ID: [id number]. NOTE: For mammograms, a report in lay terms will be sent to the patient. Approximately 15% of breast malignancies will not be visualized mammographically. In the management of a palpable breast mass, a negative mammogram must not discourage biopsy of a clinically suspicious lesion. Electronically Signed By: Edwar reynoso/eliud:01/09/2024 17:50:47 letter sent: Normal Exam ACR BI-RADS Category 1: Negative [id number]
== END ==
PROVIDERS: Family Provider Internal Medicine; PCP Internal Medicine; Referring Provider Internal Medicine; Visit Provider Internal Medicine
DX: R92.323 Mammographic fibroglandular density, bilateral breasts (principal); Z12.31 Encounter for screening mammogram for malignant neoplasm of breast; M85.89 Other specified disorders of bone density and structure, multiple sites
CPT/HCPCS: 77063; 77067; 77080; 77081

== ENCOUNTER 2024-01-09 13:44 | Emergency (ER) | payer MEDICARE, OTHER, SELFPAY ==
[2024-01-09 13:48] VITALS: BP 183/86; PULSE 95; RESP 16; TEMP 36.6; O2SAT 98; BMI 27.4
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
--- NOTE | 2024-01-09 14:55 | ED_ITS ---
HPI - Animal Bite <Elise Lam PA-C - Last Filed: 01/09/24 15:00> General Chief Complaint: Animal Bite Stated Complaint: exposed to bat, needs rabies shot Time Seen by Provider: 01/09/24 13:55 Source: patient Mode of arrival: Ambulatory History of Present Illness HPI narrative: 68-year-old female presents to the ED status post exposure to a bat in her room while sleeping. Patient states that she awoke in the early hours of the morning 5 days ago, noted a bat flying past her face. Denies known bite. Patient denies any neurological symptoms or otherwise since the incident. Patient's spoke with her PCP, Dr. Ramos. Patient is here due to an abundance of caution for a rabies vaccine. Patient has not had the rabies vaccine prior to this. Related Data Home Medications Medication Instructions Recorded Confirmed semaglutide 0.25 mg or 0.5 mg (2 1.25 mg SUBCUT QWEEK 12/06/23 12/06/23 mg/3 mL) subcutaneous pen injector Previous Rx's Medication Instructions Recorded alendronate 70 mg tablet 70 mg PO QWEEK #12 tabs 12/01/22 gabapentin 300 mg capsule 900 mg (3 x 300 mg) PO BEDTIME 01/21/23 #270 caps bupropion HCl 300 mg 24 hr tablet, 300 mg PO QAM #90 tabs 03/07/23 extended release hydrochlorothiazide 12.5 mg tablet 12.5 mg PO DAILY #90 tabs 03/07/23 lamotrigine 100 mg tablet 100 mg PO DAILY #90 tabs 06/02/23 lamotrigine 150 mg tablet 150 mg PO DAILY #90 tabs 06/02/23 pramipexole 0.125 mg tablet See Rx Instructions PO BEDTIME PRN 07/25/23 restless leg(s) #60 tabs pantoprazole 40 mg tablet,delayed 40 mg PO DAILY #90 tabs 08/05/23 release pravastatin 20 mg tablet 20 mg PO BEDTIME #90 tabs 09/05/23 Allergies Allergy/AdvReac Type Severity Reaction Status Date / Time ibuprofen AdvReac Severe depressed Verified 12/06/23 14:36 breathing keflex Allergy Severe Rash Uncoded 12/06/23 14:36 prozac Allergy Severe Swelling Uncoded 12/06/23 14:36 of Lip/Tongue/Throat Review of Systems <Elise Lam PA-C - Last Filed: 01/09/24 15:00> Constitutional Constitutional: Denies chills, Denies fatigue, Denies fever(s), Denies frequent falls, Denies lethargy and Denies weakness Eyes Eyes: Denies change in vision, Denies eye discharge, Denies irritation and Denies loss of vision ENT Ears, Nose, Mouth, and Throat: Denies change in voice, Denies dizziness, Denies neck pain, Denies sore throat and Denies throat swelling Cardiovascular Cardiovascular: Denies chest pain, Denies irregular heart rhythm, Denies lightheadedness, Denies palpitations, Denies dyspnea, Denies dyspnea on exertion and Denies orthopnea Respiratory Respiratory: Denies cough, Denies dyspnea, Denies dyspnea on exertion and Denies wheezing Gastrointestinal Gastrointestinal: Denies abdominal pain, Denies change in bowel habits, Denies diarrhea, Denies nausea and Denies vomiting Musculoskeletal Musculoskeletal: Denies neck pain and Denies numbness Integumentary/Breasts Skin/Breast: Denies pruritus, Denies erythema, Denies rash and Denies wounds Neurologic Neurologic: Denies behavioral changes, Denies confusion, Denies dizziness, Denies frequent falls, Denies loss of vision, Denies numbness and Denies weakness Psychiatric Psychiatric: Denies anxiety, Denies behavioral changes, Denies confusion, Denies depression, Denies homicidal ideation and Denies suicidal ideation Endocrine Endocrine: Denies fatigue, Denies flushing and Denies palpitations Hematologic/Lymphatic Hematologic/Lymphatic: Denies easy bruising Allergic/Immunologic Allergic/Immunologic: Denies urticaria, Denies throat swelling and Denies wheezing Patient History <Elise Lam PA-C - Last Filed: 01/09/24 15:00> Medical History History of colonic polyps Primary osteoarthritis involving multiple joints Tinea unguium Dystrophic nail Osteochondritis of tibial tuberosity Overweight Allergic rhinitis Laryngospasm Urinary incontinence Restless leg syndrome Gait instability Chronic low back pain Osteopenia Bipolar 2 disorder Depression, major, recurrent PERES (nonalcoholic steatohepatitis) Impaired fasting glucose Mixed hyperlipidemia Essential hypertension Social History details: ([place]), 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, 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 Smoking Status: Never smoker Smoking Status: Never smoker Substance Use Type: does not use Exam <Elise Lam PA-C - Last Filed: 01/09/24 15:00> Narrative Exam Narrative: Const General:?cooperative, healthy appearing and comfortable [facility] Head:?normal to inspection Ears:?hearing grossly normal bilaterally Nose:?external nose normal Face and sinus:?normal facial exam and sinuses nontender Mouth:?oral mucosae normal Throat:?posterior oropharynx normal Eyes General:?appearance normal, both eyes and all related structures Neck Neck:?normal visual inspection and no lymphadenopathy noted Resp Effort & Inspection:?normal respiratory effort Auscultation:?clear to auscultation bilaterally Cardio Rate:?regular rate Rhythm:?regular rhythm Neuro General:?patient alert, patient awake and patient oriented x3 Initial Vital Signs Initial Vital Signs: Vital Signs Temperature 97.9 F 01/09/24 13:48 Pulse Rate 95 H 01/09/24 13:48 Respiratory Rate 16 01/09/24 13:48 Blood Pressure 183/86 H 01/09/24 13:48 Pulse Oximetry 98 01/09/24 13:48 Oxygen Delivery Method Room Air 01/09/24 13:48 <Alessio Da Silva DO - Last Filed: 01/09/24 15:29> Initial Vital Signs Initial Vital Signs: Vital Signs Temperature 97.9 F 01/09/24 13:48 Pulse Rate 95 H 01/09/24 13:48 Respiratory Rate 16 01/09/24 13:48 Blood Pressure 183/86 H 01/09/24 13:48 Pulse Oximetry 98 01/09/24 13:48 Oxygen Delivery Method Room Air 01/09/24 13:48 Course <Elise Lam PA-C - Last Filed: 01/09/24 15:00> Orders Ordered: Discontinued Medications Rabies Immune Globulin (Rabies Immune Globulin 300 Unit/Ml 1ml Vial) 1,200 unit 20 unit/kg (1361 unit) IM NOW ONE Stop: 01/09/24 14:31 Last Admin: 01/09/24 15:01 Dose: 1,200 unit Documented By: SPF Rabies Vaccine (Rabies Vaccine (Rabavert) 2.5 Units Syringe) 2.5 units IM .ONCE ONE Stop: 01/09/24 14:08 Last Admin: 01/09/24 15:01 Dose: 2.5 units Documented By: SPF Vital Signs Vital signs: Vital Signs - 8 hr 01/09/24 13:48 01/09/24 15:05 Temperature 97.9 F Pulse Rate 95 H 89 Respiratory Rate 16 16 Blood Pressure 183/86 H 146/64 H Pulse Oximetry 98 98 Oxygen Delivery Method Room Air Room Air <Alessio Da Silva DO - Last Filed: 01/09/24 15:29> Orders Ordered: Discontinued Medications Rabies Immune Globulin (Rabies Immune Globulin 300 Unit/Ml 1ml Vial) 1,200 unit 20 unit/kg (1361 unit) IM NOW ONE Stop: 01/09/24 14:31 Last Admin: 01/09/24 15:01 Dose: 1,200 unit Documented By: SPF Rabies Vaccine (Rabies Vaccine (Rabavert) 2.5 Units Syringe) 2.5 units IM .ONCE ONE Stop: 01/09/24 14:08 Last Admin: 01/09/24 15:01 Dose: 2.5 units Documented By: SPF Vital Signs Vital signs: Vital Signs - 8 hr 01/09/24 13:48 01/09/24 15:05 Temperature 97.9 F Pulse Rate 95 H 89 Respiratory Rate 16 16 Blood Pressure 183/86 H 146/64 H Pulse Oximetry 98 98 Oxygen Delivery Method Room Air Room Air MDM - Animal Bite <Elise Lam PA-C - Last Filed: 01/09/24 15:00> MDM Narrative Medical decision making narrative: 68-year-old female presents to the ED status post exposure to a bat in her room while sleeping. Discussed rabies symptoms and need for rabies vaccine. Patient given a dose of the immunoglobulin as well as 1st dose of the rabies vaccine. Discussed scheduled for the remaining 3 doses of the rabies vaccine which would be on January 11, January 15, January 22. ED return precautions discussed with patient. Patient verbalized understanding. Medical records reviewed: Yes Discharge Plan Departure Patient Disposition: Home Clinical Impression: Exposure to bat without known bite Instructions: DI for Rabies Vaccine Activity Restrictions/Additional Instructions: You were evaluated in the ED today for exposure to a bat in the room. In the current circumstances, it is recommended that you obtain a dose of rabies immunoglobulin as well as a series of 4 rabies vaccine doses. You were given the dose of the rabies immunoglobulin and the 1st dose of the rabies vaccine in the ED today. Your next 3 doses will be on January 11, January 15 of January 22 respectively. Please return to the ED for the vaccine doses. If you experience any other symptoms of a rabvies infection, please return the ED. Prescriptions: No Action alendronate 70 mg tablet 70 mg PO QWEEK Qty: 12 3RF gabapentin 300 mg capsule 900 mg PO BEDTIME Qty: 270 3RF hydrochlorothiazide 12.5 mg tablet 12.5 mg PO DAILY Qty: 90 3RF bupropion HCl 300 mg tablet extended release 24 hr 300 mg PO QAM Qty: 90 3RF lamotrigine 150 mg tablet 150 mg PO DAILY Qty: 90 3RF Rx Instructions: Patient to take 150 mg with 100 mg once daily. lamotrigine 100 mg tablet 100 mg PO DAILY Qty: 90 3RF Rx Instructions: Patient to take 100 mg with 150 mg once daily. pramipexole 0.125 mg tablet See Rx Instructions PO BEDTIME PRN (Reason: restless leg(s)) Qty: 60 5RF Rx Instructions: 1-2 tablets nightly as needed for restless legs pantoprazole 40 mg tablet,delayed release (DR/EC) 40 mg PO DAILY Qty: 90 3RF pravastatin 20 mg tablet 20 mg PO BEDTIME Qty: 90 3RF semaglutide 0.25 mg or 0.5 mg (2 mg/3 mL) pen injector 1.25 mg SUBCUT QWEEK Referrals: Phillip Ramos MD [Primary Care Provider] - Stand Alone Forms: Patient Portal/API ED Sign-out <Alessio Da Silva, DO - Last Filed: 01/09/24 15:29> [facility] Dr Da Silva Co-Sign Statement: I was available for consultation during this patient's emergency department visit. This chart is signed by myself for administrative purposes only. I did not have direct contact with this patient during this visit. They were seen independently by the APC.
[2024-01-09] MEDS: RABIES VACCINE (RABAVERT) 2.5 UNITS SYRINGE IM (15:01)
[2024-01-09] MEDS: RABIES IMMUNE GLOBULIN 300 UNIT/ML 1mL VIAL 1200 UNIT IM (15:01)
[2024-01-09 15:05] VITALS: BP 146/64; PULSE 89; RESP 16; O2SAT 98
== END 2024-01-09 15:20 | disposition home or self-care (01) ==
PROVIDERS: Emergency Provider Student in an Organized Health Care Education/Training Program; Family Provider Internal Medicine; PCP Internal Medicine
DX: Z20.3 Contact with and (suspected) exposure to rabies (principal); Z23 Encounter for immunization
CPT/HCPCS: 90375; 90471; 90675; 96372; 99283

== ENCOUNTER 2024-01-12 11:39 | Emergency (ER) | payer MEDICARE, OTHER, SELFPAY ==
[2024-01-12 11:40] VITALS: BP 130/52; PULSE 82; RESP 14; TEMP 36.9; O2SAT 96; BMI 27.4
--- NOTE | 2024-01-12 11:59 | ED_ITS ---
HPI - Recheck/Abnormal Lab/Rx <Kim Hurst PA-C - Last Filed: 01/12/24 12:24> General Chief Complaint: Recheck/Abnormal Lab/Rx Stated Complaint: return for 2nd rabies shot Time Seen by Provider: 01/12/24 11:45 Source: patient Mode of arrival: Ambulatory History of Present Illness HPI narrative: 68-year-old woman presents with concern for needing 2nd dose of her rabies vaccine. She was seen in this emergency department 3 days ago after exposure to a bat without known bite was woken from sleeping by the bat flying across and swiping her face, with unknown length of time in the home prior to this. Ligia nt states that she did okay after her 1st dose of vaccine she endorsed only having a sore muscle. She states she has otherwise been in her usual state of health and feeling fine. She denies any other complaints or concerns. Related Data Home Medications Medication Instructions Recorded Confirmed semaglutide 0.25 mg or 0.5 mg (2 1.25 mg SUBCUT QWEEK 12/06/23 12/06/23 mg/3 mL) subcutaneous pen injector Previous Rx's Medication Instructions Recorded alendronate 70 mg tablet 70 mg PO QWEEK #12 tabs 12/01/22 gabapentin 300 mg capsule 900 mg (3 x 300 mg) PO BEDTIME 01/21/23 #270 caps bupropion HCl 300 mg 24 hr tablet, 300 mg PO QAM #90 tabs 03/07/23 extended release hydrochlorothiazide 12.5 mg tablet 12.5 mg PO DAILY #90 tabs 03/07/23 lamotrigine 100 mg tablet 100 mg PO DAILY #90 tabs 06/02/23 lamotrigine 150 mg tablet 150 mg PO DAILY #90 tabs 06/02/23 pramipexole 0.125 mg tablet See Rx Instructions PO BEDTIME PRN 07/25/23 restless leg(s) #60 tabs pantoprazole 40 mg tablet,delayed 40 mg PO DAILY #90 tabs 08/05/23 release pravastatin 20 mg tablet 20 mg PO BEDTIME #90 tabs 09/05/23 Allergies Allergy/AdvReac Type Severity Reaction Status Date / Time ibuprofen AdvReac Severe depressed Verified 01/12/24 11:45 breathing keflex Allergy Severe Rash Uncoded 12/06/23 14:36 prozac Allergy Severe Swelling Uncoded 12/06/23 14:36 of Lip/Tongue/Throat Review of Systems <Kim Hurst PA-C - Last Filed: 01/12/24 12:24> Review of Systems Narrative: See HPI Patient History <Kim Hurst PA-C - Last Filed: 01/12/24 12:24> Medical History History of colonic polyps Primary osteoarthritis involving multiple joints Tinea unguium Dystrophic nail Osteochondritis of tibial tuberosity Overweight Allergic rhinitis Laryngospasm Urinary incontinence Restless leg syndrome Gait instability Chronic low back pain Osteopenia Bipolar 2 disorder Depression, major, recurrent PERES (nonalcoholic steatohepatitis) Impaired fasting glucose Mixed hyperlipidemia Essential hypertension Social History details: (Desmond), 1 daughter, 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 Well-developed patient, in mild distress. HEAD: Atraumatic. Normocephalic. EYES: Pupils equal round and reactive. Extraocular motions intact. No scleral icterus. No injection or drainage. ENT: Nose without bleeding, purulent drainage. Airway patent. NECK: Trachea midline. CARDIOVASCULAR: Regular rate and rhythm without murmurs, gallops, or rubs. RESPIRATORY: Clear to auscultation. Breath sounds equal bilaterally. No wheezes, rales, or rhonchi. EXTREMITIES: Moving all extremities, normal gait NEURO: AOx3. SKIN: No rash or erythema of visible areas Initial Vital Signs Initial Vital Signs: Vital Signs Temperature 98.5 F 01/12/24 11:40 Pulse Rate 82 01/12/24 11:40 Respiratory Rate 14 01/12/24 11:40 Blood Pressure 130/52 L 01/12/24 11:40 Pulse Oximetry 96 01/12/24 11:40 Oxygen Delivery Method Room Air 01/12/24 11:40 <Ila Davidson DO - Last Filed: 01/13/24 10:25> Initial Vital Signs Initial Vital Signs: Vital Signs Temperature 98.5 F 01/12/24 11:40 Pulse Rate 82 01/12/24 11:40 Respiratory Rate 14 01/12/24 11:40 Blood Pressure 130/52 L 01/12/24 11:40 Pulse Oximetry 96 01/12/24 11:40 Oxygen Delivery Method Room Air 01/12/24 11:40 Course <Kim Hurst PA-C - Last Filed: 01/12/24 12:24> Orders Ordered: Discontinued Medications Rabies Vaccine (Rabies Vaccine (Rabavert) 2.5 Units Syringe) 2.5 units IM .ONCE ONE Stop: 01/12/24 11:49 Last Admin: 01/12/24 12:06 Dose: 2.5 units Documented By: JATIN Vital Signs Vital signs: Vital Signs - 8 hr 01/12/24 11:40 Temperature 98.5 F Pulse Rate 82 Respiratory Rate 14 Blood Pressure 130/52 L Pulse Oximetry 96 Oxygen Delivery Method Room Air <Ila Davidson DO - Last Filed: 01/13/24 10:25> Orders Ordered: Discontinued Medications Rabies Vaccine (Rabies Vaccine (Rabavert) 2.5 Units Syringe) 2.5 units IM .ONCE ONE Stop: 01/12/24 11:49 Last Admin: 01/12/24 12:06 Dose: 2.5 units Documented By: JATIN Vital Signs Vital signs: Vital Signs - 8 hr 01/12/24 11:40 Temperature 98.5 F Pulse Rate 82 Respiratory Rate 14 Blood Pressure 130/52 L Pulse Oximetry 96 Oxygen Delivery Method Room Air MDM - Recheck/Abnormal Lab/Rx <Kim Hurst PA-C - Last Filed: 01/12/24 12:24> Differential Diagnosis Differential diagnosis: Likely other (Encounter for 2nd dose rabies vaccine following bat exposure) Medical Records Attestation: I reviewed the patient's medical records. [facility] Narrative Medical decision making narrative: This is a well-appearing 68-year-old woman with a history of hypertension hyperlipidemia osteopenia and bipolar presenting with concern for needing 2nd dose of the rabies vaccine after she was seen in this emergency department 3 days ago where she received rabies vaccine and immunoglobulin after exposure to a bat without known bite. Patient is very well-appearing today denies any vaccine reaction and has been in her usual state of health. Second dose of Rabavert vaccine is ordered and administered today during ER visit. Patient will return on day 7 and 14 for her next doses. Return precautions provided, follow-up plan discussed, all questions answered Discharge Plan Departure Patient Disposition: Home Clinical Impression: Exposure to bat without known bite Activity Restrictions/Additional Instructions: *You have been diagnosed with [exposure to bat without known bite] *What to do: *Please continue to take your regular medications as directed. [ ] New medication prescriptions sent to your pharmacy: [ ] [ ] New medication written as a paper prescription [ ] No new medications given *Please follow up with your primary care provider in 2-3 days, call for an appointment. Let them know you were seen in the Emergency Department and that we ask that you be seen in follow up. We will electronically transmit a record of today's note if your PCP is in our system. You returned today for your 2nd dose of rabies vaccine. This was administered today in the ER. You have 2 doses left and are due to return for a dose on the 15 of January as well as the 22 of January. If you have any new or concerning symptoms, make sure you seek re-evaluation otherwise return as planned on 15 of January for your nex t vaccination. *If you do not have a primary care provider please contact the [facility] Resource line at [phone]. They will ask some questions about your medical history and help get you set up with a doctor in the community. *Return to Emergency Department if you should have any new, worsening or concerning symptoms, such as [fever greater than 101 F, shaking chills, worsening pain, persistent vomiting or other bothersome symptoms] Prescriptions: No Action alendronate 70 mg tablet 70 mg PO QWEEK Qty: 12 3RF gabapentin 300 mg capsule 900 mg PO BEDTIME Qty: 270 3RF hydrochlorothiazide 12.5 mg tablet 12.5 mg PO DAILY Qty: 90 3RF bupropion HCl 300 mg tablet extended release 24 hr 300 mg PO QAM Qty: 90 3RF lamotrigine 150 mg tablet 150 mg PO DAILY Qty: 90 3RF Rx Instructions: Patient to take 150 mg with 100 mg once daily. lamotrigine 100 mg tablet 100 mg PO DAILY Qty: 90 3RF Rx Instructions: Patient to take 100 mg with 150 mg once daily. pramipexole 0.125 mg tablet See Rx Instructions PO BEDTIME PRN (Reason: restless leg(s)) Qty: 60 5RF Rx Instructions: 1-2 tablets nightly as needed for restless legs pantoprazole 40 mg tablet,delayed release (DR/EC) 40 mg PO DAILY Qty: 90 3RF pravastatin 20 mg tablet 20 mg PO BEDTIME Qty: 90 3RF semaglutide 0.25 mg or 0.5 mg (2 mg/3 mL) pen injector 1.25 mg SUBCUT QWEEK Referrals: Phillip Ramos MD [Primary Care Provider] - Stand Alone Forms: Patient Portal/API ED Sign-out <Ila Davdison DO - Last Filed: 01/13/24 10:25> Cosign ED Attending Cristianeature Attestation: I was available for consultation.
[2024-01-12] MEDS: RABIES VACCINE (RABAVERT) 2.5 UNITS SYRINGE IM (12:06)
== END 2024-01-12 12:29 | disposition home or self-care (01) ==
PROVIDERS: Emergency Provider Student in an Organized Health Care Education/Training Program; Family Provider Internal Medicine; PCP Internal Medicine
DX: Z20.3 Contact with and (suspected) exposure to rabies (principal); Z23 Encounter for immunization
CPT/HCPCS: 90471; 90675; 99283

== ENCOUNTER 2024-01-16 12:51 | Emergency (ER) | payer MEDICARE, OTHER, SELFPAY ==
[2024-01-16 12:54] VITALS: BP 138/65; PULSE 89; RESP 18; TEMP 36.4; O2SAT 99; BMI 27.2
[2024-01-16] MEDS: RABIES VACCINE (RABAVERT) 2.5 UNITS SYRINGE IM (13:21)
--- NOTE | 2024-01-16 13:27 | ED_ITS ---
HPI - Recheck/Abnormal Lab/Rx <Elise Lam PA-C - Last Filed: 01/16/24 13:31> General Chief Complaint: Recheck/Abnormal Lab/Rx Stated Complaint: third rabies shot Time Seen by Provider: 01/16/24 13:09 Source: patient Mode of arrival: Ambulatory History of Present Illness HPI narrative: 68-year-old female who was exposed to a bat that was flying about in her room is here in the ED for the 3rd dose of the prophylactic rabies vaccine. Patient denies any symptoms other than mild muscle soreness at the site of the injection. Related Data Home Medications Medication Instructions Recorded Confirmed semaglutide 0.25 mg or 0.5 mg (2 1.25 mg SUBCUT QWEEK 12/06/23 12/06/23 mg/3 mL) subcutaneous pen injector Previous Rx's Medication Instructions Recorded alendronate 70 mg tablet 70 mg PO QWEEK #12 tabs 12/01/22 bupropion HCl 300 mg 24 hr tablet, 300 mg PO QAM #90 tabs 03/07/23 extended release hydrochlorothiazide 12.5 mg tablet 12.5 mg PO DAILY #90 tabs 03/07/23 lamotrigine 100 mg tablet 100 mg PO DAILY #90 tabs 06/02/23 lamotrigine 150 mg tablet 150 mg PO DAILY #90 tabs 06/02/23 pramipexole 0.125 mg tablet See Rx Instructions PO BEDTIME PRN 07/25/23 restless leg(s) #60 tabs pantoprazole 40 mg tablet,delayed 40 mg PO DAILY #90 tabs 08/05/23 release pravastatin 20 mg tablet 20 mg PO BEDTIME #90 tabs 09/05/23 gabapentin 300 mg capsule 900 mg (3 x 300 mg) PO BEDTIME 01/16/24 #270 caps Allergies Allergy/AdvReac Type Severity Reaction Status Date / Time ibuprofen AdvReac Severe depressed Verified 01/12/24 11:45 breathing keflex Allergy Severe Rash Uncoded 12/06/23 14:36 prozac Allergy Severe Swelling Uncoded 12/06/23 14:36 of Lip/Tongue/Throat Review of Systems <Elise Lam PA-C - Last Filed: 01/16/24 13:31> Constitutional Constitutional: Denies chills, Denies fatigue, Denies fever(s), Denies frequent falls, Denies lethargy and Denies weakness Eyes Eyes: Denies change in vision, Denies eye discharge, Denies irritation and Denies loss of vision ENT Ears, Nose, Mouth, and Throat: Denies change in voice, Denies dizziness, Denies neck pain, Denies sore throat and Denies throat swelling Cardiovascular Cardiovascular: Denies chest pain, Denies irregular heart rhythm, Denies lightheadedness, Denies palpitations, Denies dyspnea, Denies dyspnea on exertion and Denies orthopnea Respiratory Respiratory: Denies cough, Denies dyspnea, Denies dyspnea on exertion and Denies wheezing Gastrointestinal Gastrointestinal: Denies abdominal pain, Denies change in bowel habits, Denies diarrhea, Denies nausea and Denies vomiting Musculoskeletal Musculoskeletal: Denies neck pain and Denies numbness Comments: Soreness at the site of the rabies vaccine injection Integumentary/Breasts Skin/Breast: Denies pruritus, Denies erythema, Denies rash and Denies wounds Neurologic Neurologic: Denies behavioral changes, Denies confusion, Denies dizziness, Denies frequent falls, Denies loss of vision, Denies numbness and Denies weakness Psychiatric Psychiatric: Denies anxiety, Denies behavioral changes, Denies confusion, Denies depression, Denies homicidal ideation and Denies suicidal ideation Endocrine Endocrine: Denies fatigue, Denies flushing and Denies palpitations Hematologic/Lymphatic Hematologic/Lymphatic: Denies easy bruising Allergic/Immunologic Allergic/Immunologic: Denies urticaria, Denies throat swelling and Denies wheezing Patient History <Elise Lam PA-C - Last Filed: 01/16/24 13:31> Medical History History of colonic polyps Primary osteoarthritis involving multiple joints Tinea unguium Dystrophic nail Osteochondritis of tibial tuberosity Overweight Allergic rhinitis Laryngospasm Urinary incontinence Restless leg syndrome Gait instability Chronic low back pain Osteopenia Bipolar 2 disorder Depression, major, recurrent PERES (nonalcoholic steatohepatitis) Impaired fasting glucose Mixed hyperlipidemia Essential hypertension Social History details: (Desmond), 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 Head:?normal to inspection Ears:?hearing grossly normal bilaterally Nose:?external nose normal Face and sinus:?normal facial exam and sinuses nontender Mouth:?oral mucosae normal Throat:?posterior oropharynx normal Eyes General:?appearance normal, both eyes and all related structures Neck Neck:?normal visual inspection and no lymphadenopathy noted Resp Effort & Inspection:?normal respiratory effort Auscultation:?clear to auscultation bilaterally Cardio Rate:?regular rate Rhythm:?regular rhythm Neuro General:?patient alert, patient awake and patient oriented x3 Initial Vital Signs Initial Vital Signs: Vital Signs Temperature 97.6 F 01/16/24 12:54 Pulse Rate 89 01/16/24 12:54 Respiratory Rate 18 01/16/24 12:54 Blood Pressure 138/65 01/16/24 12:54 Pulse Oximetry 99 01/16/24 12:54 Oxygen Delivery Method Room Air 01/16/24 12:54 <Alhaji Lassiter DO - Last Filed: 01/16/24 13:36> Initial Vital Signs Initial Vital Signs: Vital Signs Temperature 97.6 F 01/16/24 12:54 Pulse Rate 89 01/16/24 12:54 Respiratory Rate 18 01/16/24 12:54 Blood Pressure 138/65 01/16/24 12:54 Pulse Oximetry 99 01/16/24 12:54 Oxygen Delivery Method Room Air 01/16/24 12:54 Course <RAZ Newell Last Filed: 01/16/24 13:31> Orders Ordered: Discontinued Medications Rabies Vaccine (Rabies Vaccine (Rabavert) 2.5 Units Syringe) 2.5 units IM .ONCE ONE Stop: 01/16/24 13:02 Last Admin: 01/16/24 13:21 Dose: 2.5 units Documented By: CTS Vital Signs Vital signs: Vital Signs - 8 hr 01/16/24 12:54 Temperature 97.6 F Pulse Rate 89 Respiratory Rate 18 Blood Pressure 138/65 Pulse Oximetry 99 Oxygen Delivery Method Room Air <Alhaji Lassiter DO - Last Filed: 01/16/24 13:36> Orders Ordered: Discontinued Medications Rabies Vaccine (Rabies Vaccine (Rabavert) 2.5 Units Syringe) 2.5 units IM .ONCE ONE Stop: 01/16/24 13:02 Last Admin: 01/16/24 13:21 Dose: 2.5 units Documented By: CTS Vital Signs Vital signs: Vital Signs - 8 hr 01/16/24 12:54 Temperature 97.6 F Pulse Rate 89 Respiratory Rate 18 Blood Pressure 138/65 Pulse Oximetry 99 Oxygen Delivery Method Room Air MDM - Recheck/Abnormal Lab/Rx <Elise Lam PA-C - Last Filed: 01/16/24 13:31> MDM Narrative Medical decision making narrative: 68-year-old female who was exposed to a bat that was flying about in her room is here in the ED for the 3rd dose of the prophylactic rabies vaccine. Patient was administered 3rd dose of the prophylactic rabies vaccine in the ED today. Patient agrees to return on January 22 for the last dose. ED return precautions were discussed with patient. Patient verbalized understanding. Medical records reviewed: Yes <Alhaji Lassiter DO - Last Filed: 01/16/24 13:36> Differential Diagnosis Differential diagnosis: Likely other (Encounter for rabies vaccine) [facility] Narrative Medical decision making narrative: 68-year-old female who was exposed to a bat that was flying about in her room is here in the ED for the 3rd dose of the prophylactic rabies vaccine. Patient was administered 3rd dose of the prophylactic rabies vaccine in the ED today. Patient agrees to return on January 22 for the last dose. ED return precautions were discussed with patient. Patient verbalized understanding. Medical records reviewed: Yes Dr. Lassiter: I was immediately available in the department for consultation. Documentation has been reviewed. I agree with assessment and plan. Discharge Plan Departure Patient Disposition: Home Clinical Impression: Need for prophylactic vaccination against rabies Instructions: DI for Rabies Vaccine Activity Restrictions/Additional Instructions: You were administered the 3rd dose of the rabies vaccine today. Please continue to monitor any symptoms and return to the ED you have any worsening symptoms. Your last dose of the rabies vaccine is due on January 22. Prescriptions: No Action alendronate 70 mg tablet 70 mg PO QWEEK Qty: 12 3RF hydrochlorothiazide 12.5 mg tablet 12.5 mg PO DAILY Qty: 90 3RF bupropion HCl 300 mg tablet extended release 24 hr 300 mg PO QAM Qty: 90 3RF lamotrigine 150 mg tablet 150 mg PO DAILY Qty: 90 3RF Rx Instructions: Patient to take 150 mg with 100 mg once daily. lamotrigine 100 mg tablet 100 mg PO DAILY Qty: 90 3RF Rx Instructions: Patient to take 100 mg with 150 mg once daily. pramipexole 0.125 mg tablet See Rx Instructions PO BEDTIME PRN (Reason: restless leg(s)) Qty: 60 5RF Rx Instructions: 1-2 tablets nightly as needed for restless legs pantoprazole 40 mg tablet,delayed release (DR/EC) 40 mg PO DAILY Qty: 90 3RF pravastatin 20 mg tablet 20 mg PO BEDTIME Qty: 90 3RF gabapentin 300 mg capsule 900 mg PO BEDTIME Qty: 270 3RF semaglutide 0.25 mg or 0.5 mg (2 mg/3 mL) pen injector 1.25 mg SUBCUT QWEEK Referrals: Phillip Ramos MD [Primary Care Provider] - Stand Alone Forms: Patient Portal/API
== END 2024-01-16 13:30 | disposition home or self-care (01) ==
PROVIDERS: Emergency Provider Student in an Organized Health Care Education/Training Program; Family Provider Internal Medicine; PCP Internal Medicine
DX: Z20.3 Contact with and (suspected) exposure to rabies (principal); Z23 Encounter for immunization
CPT/HCPCS: 90471; 90675; 99283

== ENCOUNTER 2024-01-23 13:40 | Emergency (ER) | payer MEDICARE, OTHER, SELFPAY ==
[2024-01-23 14:05] VITALS: BP 148/68; PULSE 86; RESP 16; TEMP 36.4; O2SAT 97; BMI 27.2
[2024-01-23] MEDS: RABIES VACCINE (RABAVERT) 2.5 UNITS SYRINGE IM (14:38)
[2024-01-23 14:58] VITALS: BP 107/73; PULSE 86; RESP 20
--- NOTE | 2024-01-23 18:05 | ED_ITS ---
HPI - Recheck/Abnormal Lab/Rx <Elise Lam PA-C - Last Filed: 01/23/24 18:08> General Chief Complaint: Recheck/Abnormal Lab/Rx Stated Complaint: rabies shot Time Seen by Provider: 01/23/24 14:23 Source: patient Mode of arrival: Family Vehicle History of Present Illness HPI narrative: 68-year-old female presents to the ED for the 4th dose of the rabies vaccine for prophylaxis due to an exposure to a bat in the room. Patient endorses that she is symptom-free, has had no symptoms from her prior 3 doses. Related Data Previous Rx's Medication Instructions Recorded alendronate 70 mg tablet 70 mg PO QWEEK #12 tabs 12/01/22 bupropion HCl 300 mg 24 hr tablet, 300 mg PO QAM #90 tabs 03/07/23 extended release hydrochlorothiazide 12.5 mg tablet 12.5 mg PO DAILY #90 tabs 03/07/23 lamotrigine 100 mg tablet 100 mg PO DAILY #90 tabs 06/02/23 lamotrigine 150 mg tablet 150 mg PO DAILY #90 tabs 06/02/23 pramipexole 0.125 mg tablet See Rx Instructions PO BEDTIME PRN 07/25/23 restless leg(s) #60 tabs pantoprazole 40 mg tablet,delayed 40 mg PO DAILY #90 tabs 08/05/23 release pravastatin 20 mg tablet 20 mg PO BEDTIME #90 tabs 09/05/23 gabapentin 300 mg capsule 900 mg (3 x 300 mg) PO BEDTIME 01/16/24 #270 caps semaglutide 0.25 mg or 0.5 mg (2 1.25 mg (1.84 mL) SUBCUT QWEEK #9 01/19/24 mg/3 mL) subcutaneous pen injector mL Allergies Allergy/AdvReac Type Severity Reaction Status Date / Time ibuprofen AdvReac Severe depressed Verified 01/19/24 08:54 breathing keflex Allergy Severe Rash Uncoded 01/19/24 08:54 prozac Allergy Severe Swelling Uncoded 01/19/24 08:54 of Lip/Tongue/Throat Review of Systems <Elise Lam PA-C - Last Filed: 01/23/24 18:08> Constitutional Constitutional: Denies chills, Denies fatigue, Denies fever(s), Denies frequent falls, Denies lethargy and Denies weakness Eyes Eyes: Denies change in vision, Denies eye discharge, Denies irritation and Denies loss of vision ENT Ears, Nose, Mouth, and Throat: Denies change in voice, Denies dizziness, Denies neck pain, Denies sore throat and Denies throat swelling Cardiovascular Cardiovascular: Denies chest pain, Denies irregular heart rhythm, Denies lightheadedness, Denies palpitations, Denies dyspnea, Denies dyspnea on exertion and Denies orthopnea Respiratory Respiratory: Denies cough, Denies dyspnea, Denies dyspnea on exertion and Denies wheezing Gastrointestinal Gastrointestinal: Denies abdominal pain, Denies change in bowel habits, Denies diarrhea, Denies nausea and Denies vomiting Musculoskeletal Musculoskeletal: Denies neck pain and Denies numbness Integumentary/Breasts Skin/Breast: Denies pruritus, Denies erythema, Denies rash and Denies wounds Neurologic Neurologic: Denies behavioral changes, Denies confusion, Denies dizziness, Denies frequent falls, Denies loss of vision, Denies numbness and Denies weakness Psychiatric Psychiatric: Denies anxiety, Denies behavioral changes, Denies confusion, Denies depression, Denies homicidal ideation and Denies suicidal ideation Endocrine Endocrine: Denies fatigue, Denies flushing and Denies palpitations Hematologic/Lymphatic Hematologic/Lymphatic: Denies easy bruising Allergic/Immunologic Allergic/Immunologic: Denies urticaria, Denies throat swelling and Denies wheezing Patient History <Elise Lam PA-C - Last Filed: 01/23/24 18:08> Medical History History of colonic polyps Primary osteoarthritis involving multiple joints Tinea unguium Dystrophic nail Osteochondritis of tibial tuberosity Overweight Allergic rhinitis Laryngospasm Urinary incontinence Restless leg syndrome Gait instability Chronic low back pain Osteopenia Bipolar 2 disorder Depression, major, recurrent PERES (nonalcoholic steatohepatitis) Impaired fasting glucose Mixed hyperlipidemia Essential hypertension Social History details: (Desmond), 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, 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 Smoking Status: Never smoker Smoking Status: Never smoker alcohol intake frequency: holidays/special occasions only Substance Use Type: does not use Exam <Elise Lam PA-C - Last Filed: 01/23/24 18:08> Narrative Exam Narrative: Const General:?cooperative, healthy appearing and comfortable [facility] Head:?normal to inspection Ears:?hearing grossly normal bilaterally Nose:?external nose normal Face and sinus:?normal facial exam and sinuses nontender Mouth:?oral mucosae normal Throat:?posterior oropharynx normal Eyes General:?appearance normal, both eyes and all related structures Neck Neck:?normal visual inspection and no lymphadenopathy noted Resp Effort & Inspection:?normal respiratory effort Auscultation:?clear to auscultation bilaterally Cardio Rate:?regular rate Rhythm:?regular rhythm Neuro General:?patient alert, patient awake and patient oriented x3 Initial Vital Signs Initial Vital Signs: Vital Signs Temperature 97.6 F 01/23/24 14:05 Pulse Rate 86 01/23/24 14:05 Respiratory Rate 16 01/23/24 14:05 Blood Pressure 148/68 H 01/23/24 14:05 Pulse Oximetry 97 01/23/24 14:05 Oxygen Delivery Method Room Air 01/23/24 14:05 <Alhaji Lassiter DO - Last Filed: 01/24/24 10:27> Initial Vital Signs Initial Vital Signs: Vital Signs Temperature 97.6 F 01/23/24 14:05 Pulse Rate 86 01/23/24 14:05 Respiratory Rate 16 01/23/24 14:05 Blood Pressure 148/68 H 01/23/24 14:05 Pulse Oximetry 97 01/23/24 14:05 Oxygen Delivery Method Room Air 01/23/24 14:05 Course <Elise Lam PA-C - Last Filed: 01/23/24 18:08> Orders Ordered: Discontinued Medications Rabies Vaccine (Rabies Vaccine (Rabavert) 2.5 Units Syringe) 2.5 units IM .ONCE ONE Stop: 01/23/24 14:27 Last Admin: 01/23/24 14:38 Dose: 2.5 units Documented By: MPO Vital Signs Vital signs: Vital Signs - 8 hr 01/23/24 14:05 01/23/24 14:58 Temperature 97.6 F Pulse Rate 86 86 Respiratory Rate 16 20 Blood Pressure 148/68 H 107/73 Pulse Oximetry 97 Oxygen Delivery Method Room Air <Alhaji Lassiter DO - Last Filed: 01/24/24 10:27> Orders Ordered: Discontinued Medications Rabies Vaccine (Rabies Vaccine (Rabavert) 2.5 Units Syringe) 2.5 units IM .ONCE ONE Stop: 01/23/24 14:27 Last Admin: 01/23/24 14:38 Dose: 2.5 units Documented By: EMPERATRIZ Vital Signs Vital signs: Vital Signs - 8 hr 01/23/24 14:05 01/23/24 14:58 Temperature 97.6 F Pulse Rate 86 86 Respiratory Rate 16 20 Blood Pressure 148/68 H 107/73 Pulse Oximetry 97 Oxygen Delivery Method Room Air MDM - Recheck/Abnormal Lab/Rx <Elise Lam PA-C - Last Filed: 01/23/24 18:08> [facility] Narrative Medical decision making narrative: 68-year-old female presents to the ED for the 4th dose of the rabies vaccine for prophylaxis due to an exposure to a bat in the room. Reassuring that patient has had no symptoms or adverse reactions to the vaccine. The 4th and final dose was administered in the ED today. ED return precautions discussed with patient. Patient verbalized understanding. Medical records reviewed: Yes <Alhaji Lassiter DO - Last Filed: 01/24/24 10:27> [facility] Narrative Medical decision making narrative: 68-year-old female presents to the ED for the 4th dose of the rabies vaccine for prophylaxis due to an exposure to a bat in the room. Reassuring that patient has had no symptoms or adverse reactions to the vaccine. The 4th and final dose was administered in the ED today. ED return precautions discussed with patient. Patient verbalized understanding. Medical records reviewed: Yes Dr. Lassiter: I was immediately available in the department for consultation. Documentation has been reviewed. I agree with assessment and plan. Discharge Plan Departure Patient Disposition: Home Clinical Impression: Need for prophylactic vaccination against rabies Instructions: DI for Rabies Vaccine Activity Restrictions/Additional Instructions: You were administered the last dose of the rabies vaccine today. It is reassuring that you have had no adverse effects with the prior doses, please continue to monitor your symptoms. Return to the ED if you note any new symptoms. Prescriptions: No Action alendronate 70 mg tablet 70 mg PO QWEEK Qty: 12 3RF hydrochlorothiazide 12.5 mg tablet 12.5 mg PO DAILY Qty: 90 3RF bupropion HCl 300 mg tablet extended release 24 hr 300 mg PO QAM Qty: 90 3RF lamotrigine 150 mg tablet 150 mg PO DAILY Qty: 90 3RF Rx Instructions: Patient to take 150 mg with 100 mg once daily. lamotrigine 100 mg tablet 100 mg PO DAILY Qty: 90 3RF Rx Instructions: Patient to take 100 mg with 150 mg once daily. pramipexole 0.125 mg tablet See Rx Instructions PO BEDTIME PRN (Reason: restless leg(s)) Qty: 60 5RF Rx Instructions: 1-2 tablets nightly as needed for restless legs pantoprazole 40 mg tablet,delayed release (DR/EC) 40 mg PO DAILY Qty: 90 3RF pravastatin 20 mg tablet 20 mg PO BEDTIME Qty: 90 3RF gabapentin 300 mg capsule 900 mg PO BEDTIME Qty: 270 3RF semaglutide 0.25 mg or 0.5 mg (2 mg/3 mL) pen injector 1.25 mg SUBCUT QWEEK Qty: 9 3RF Referrals: Phillip Ramos MD [Primary Care Provider] - Stand Alone Forms: Patient Portal/API
== END 2024-01-23 15:00 | disposition home or self-care (01) ==
PROVIDERS: Emergency Provider Student in an Organized Health Care Education/Training Program; Family Provider Internal Medicine; PCP Internal Medicine
DX: Z20.3 Contact with and (suspected) exposure to rabies (principal); Z23 Encounter for immunization
CPT/HCPCS: 90471; 90675; 99283

== ENCOUNTER → 2024-03-09 15:22 | Outpatient (CLI) | payer MEDICARE, OTHER, SELFPAY ==
--- NOTE | 2024-03-09 15:25 | DI.RAD.S_ITS ---
PROCEDURE: XR CHEST 2V INDICATIONS: Cough TECHNIQUE: 2 views of the chest were acquired. COMPARISON: None. FINDINGS: Heart, mediastinum and pulmonary vascular: Heart is normal in size and configuration. Mediastinum is unremarkable. Pulmonary vascular is normal. Lungs: Clear Pleural spaces: Normal-no effusions or pneumothorax. Bones and soft tissues: Normal IMPRESSION: Normal chest. Dictated by: Jaime Mayer M.D. on 03/12/2024 at 9:44 Approved by: Jaime Mayer M.D. on 03/12/2024 at 9:45
== END ==
PROVIDERS: Family Provider Internal Medicine; PCP Internal Medicine; Referring Provider Nurse Practitioner Family; Visit Provider Nurse Practitioner Family
DX: R05.9 Cough, unspecified (principal)
CPT/HCPCS: 71046

== ENCOUNTER 2024-05-03 23:43 | Emergency (ER) | payer MEDICARE, OTHER, SELFPAY ==
[2024-05-03 23:53] VITALS: BP 146/71; PULSE 88; RESP 18; TEMP 36.9; O2SAT 96; BMI 27.6
--- NOTE | 2024-05-04 03:32 | ED.LOWEXIN ---
HPI - Extremity Injury (Lower) General Chief Complaint: Extremity Injury, Lower Stated Complaint: bad bruise on left hamstring Time Seen by Provider: 05/04/24 03:32 Source: patient Mode of arrival: Ambulatory History of Present Illness HPI Narrative: 68-year-old female had ground level fall [place] before last, with hematoma left medial thigh, was getting larger, now turning orange in color, was concerned about the color changes. No fevers or chills. She also had small bruising to the right knee without swelling, feels stable on ambulation with both lower extremities. No other injuries recalled. Related Data Previous Rx's Medication Instructions Recorded alendronate 70 mg tablet 70 mg PO QWEEK #12 tabs 12/01/22 lamotrigine 100 mg tablet 100 mg PO DAILY #90 tabs 06/02/23 pantoprazole 40 mg tablet,delayed 40 mg PO DAILY #90 tabs 08/05/23 release pravastatin 20 mg tablet 20 mg PO BEDTIME #90 tabs 09/05/23 gabapentin 300 mg capsule 900 mg (3 x 300 mg) PO BEDTIME 01/16/24 #270 caps semaglutide 0.25 mg or 0.5 mg (2 1.25 mg (1.84 mL) SUBCUT QWEEK #9 01/19/24 mg/3 mL) subcutaneous pen injector mL pramipexole 0.125 mg tablet See Rx Instructions PO BEDTIME PRN 01/30/24 restless leg(s) #60 tabs bupropion HCl 300 mg 24 hr tablet, 300 mg PO QAM #90 tabs 02/08/24 extended release hydrochlorothiazide 12.5 mg tablet 12.5 mg PO DAILY #90 tabs 02/08/24 amoxicillin 875 mg-potassium 1 tab PO BID #14 tabs 03/09/24 clavulanate 125 mg tablet benzonatate 200 mg capsule 200 mg PO BID PRN cough #28 caps 03/09/24 lamotrigine 150 mg tablet 150 mg PO DAILY #90 tabs 05/01/24 Allergies Allergy/AdvReac Type Severity Reaction Status Date / Time ibuprofen AdvReac Severe depressed Verified 03/09/24 14:58 breathing keflex Allergy Severe Rash Uncoded 03/09/24 14:58 prozac Allergy Severe Swelling Uncoded 03/09/24 14:58 of Lip/Tongue/Throat Patient History Medical History History of colonic polyps Primary osteoarthritis involving multiple joints Tinea unguium Dystrophic nail Osteochondritis of tibial tuberosity Overweight Allergic rhinitis Laryngospasm Urinary incontinence Restless leg syndrome Gait instability Chronic low back pain Osteopenia Bipolar 2 disorder Depression, major, recurrent PERES (nonalcoholic steatohepatitis) Impaired fasting glucose Mixed hyperlipidemia Essential hypertension Social History details: (Desmond), 1 daughter, 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 HEAD: Atraumatic. Normocephalic. EYES: Pupils equal round and reactive. Extraocular motions intact. No scleral icterus. No injection or drainage. ENT: Nose without bleeding, purulent drainage. Throat without erythema, tonsillar hypertrophy or exudate. Airway patent. NECK: Trachea midline. Non tender CARDIOVASCULAR: Regular rate and rhythm without murmurs, gallops, or rubs. RESPIRATORY: Clear to auscultation. Breath sounds equal bilaterally. No wheezes, rales, or rhonchi. GASTROINTESTINAL: Abdomen soft, non-tender, nondistended. EXTREMITIES: Left medial thigh with hematoma 25 cm by 15 cm, central brown coloration, peripheral orange coloration, consistent with resolving hematoma, no fluctuance, no tense skin, she moves her thigh and hip and knee easily. Right anterior knee with small areas of contusion, no gross effusion, flexes and extends knee very well, no joint line tenderness. BACK: Nontender without deformity or crepitance. No flank tenderness. NEURO: AOx3. Motor functions grossly nonfocal SKIN: No rash or erythema of visible areas Initial Vital Signs Initial Vital Signs: Vital Signs Temperature 98.4 F 05/03/24 23:53 Pulse Rate 88 05/03/24 23:53 Respiratory Rate 18 05/03/24 23:53 Blood Pressure 146/71 H 05/03/24 23:53 Pulse Oximetry 96 05/03/24 23:53 Oxygen Delivery Method Room Air 05/03/24 23:53 Course Vital Signs Vital signs: Vital Signs - 8 hr 05/03/24 23:53 05/04/24 03:52 Temperature 98.4 F Pulse Rate 88 76 Respiratory Rate 18 Blood Pressure 146/71 H 137/70 Pulse Oximetry 96 97 Oxygen Delivery Method Room Air Room Air MDM - Extremity Injury (Lower) MDM Narrative Medical decision making narrative: 68-year-old female with ground level fall, right medial thigh seems to be resolving, no fever, central brown with peripheral orange consistent with multi day resolving hematoma, no large area of induration, no crepitance, no fluctuance, no obvious drainable fluid by clinical exam, no imaging indicated. Small contusion right knee unremarkable, no x-rays indicated. Patient seems satisfied with the explanation, consider Tylenol as needed, continue taking naproxen for her chronic arthritic pain. Consider recheck thigh wound if still significant size Tuesday. Return precautions discussed Discharge Plan Departure Patient Disposition: Home Clinical Impression: Fall from ground level, Hematoma of left thigh, Contusion of knee, right Activity Restrictions/Additional Instructions: Fall Tuesday before last with hematoma left medial thigh, good range of motion with hip and knee, seems to be resolving, not obviously super infected, doubt cellulitis at this time, no fever, color changes are expected for stage of healing and resorption. There is no tense skin or significant hard or fluctuant area suggesting any significant fluid that would be amenable to drainage or incision in the operating room. Small bruise changes right anterior knee with excellent range of motion also noted. Neither area requires x-rays at this time, nor left thigh requiring any ultrasound or CT imaging at this time. Continue local measures. Take Tylenol as needed for discomfort. Take your naproxen as needed for chronic arthritic symptoms. Recheck left thigh bruising resolving resorbing hematoma with your regular doctor on Tuesday in clinic. Return earlier to this/nearest emergency department for any change worsening symptoms or any concerns prior Prescriptions: No Action amoxicillin-pot clavulanate 875-125 mg tablet 1 tab PO BID Qty: 14 0RF benzonatate 200 mg capsule 200 mg PO BID PRN (Reason: cough) Qty: 28 0RF alendronate 70 mg tablet 70 mg PO QWEEK Qty: 12 3RF lamotrigine 100 mg tablet 100 mg PO DAILY Qty: 90 3RF Rx Instructions: Patient to take 100 mg with 150 mg once daily. pantoprazole 40 mg tablet,delayed release (DR/EC) 40 mg PO DAILY Qty: 90 3RF pravastatin 20 mg tablet 20 mg PO BEDTIME Qty: 90 3RF gabapentin 300 mg capsule 900 mg PO BEDTIME Qty: 270 3RF pramipexole 0.125 mg tablet See Rx Instructions PO BEDTIME PRN (Reason: restless leg(s)) Qty: 60 5RF Rx Instructions: 1-2 tablets nightly as needed for restless legs hydrochlorothiazide 12.5 mg tablet 12.5 mg PO DAILY Qty: 90 3RF bupropion HCl 300 mg tablet extended release 24 hr 300 mg PO QAM Qty: 90 3RF lamotrigine 150 mg tablet 150 mg PO DAILY Qty: 90 3RF Rx Instructions: Patient to take 150 mg with 100 mg once daily. semaglutide 0.25 mg or 0.5 mg (2 mg/3 mL) pen injector 1.25 mg SUBCUT QWEEK Qty: 9 3RF Referrals: Phillip Ramos MD [Primary Care Provider] - Stand Alone Forms: Patient Portal/API/Survey
[2024-05-04 03:52] VITALS: BP 137/70; PULSE 76; O2SAT 97
== END 2024-05-04 03:53 | disposition home or self-care (01) ==
PROVIDERS: Emergency Provider Emergency Medicine; Family Provider Internal Medicine; PCP Internal Medicine
DX: S70.12XA Contusion of left thigh, initial encounter (principal); S80.01XA Contusion of right knee, initial encounter; W18.30XA Fall on same level, unspecified, initial encounter
CPT/HCPCS: 99281

== ENCOUNTER → 2024-06-26 10:15 | Outpatient (CLI) | payer MEDICARE, OTHER, SELFPAY ==
--- NOTE | 2024-06-26 10:16 | DI.RAD.S_ITS ---
PROCEDURE: XR LUMBAR SPINE 6V W BENDING INDICATIONS: low back pain, hx lumbar L4-5 fusion, flex and ext TECHNIQUE: Seven views of the lumbar spine were acquired. COMPARISON: [facility], , XR LUMBAR SPINE MIN 4V, 10/14/2022, 15:18. FINDINGS: Bones: Five nonrib-bearing vertebrae are present. L4-5 posterior fusion hardware is in place. There is stabilization of grade 1 anterolisthesis. The hardware appears intact. Disc spacer is present. No vertebral body compression fractures. No suspicious bony lesions. Soft tissues: Overlying bowel gas pattern is normal. No suspicious soft tissue calcifications. Sacral nerve stimulator in place. Flexion/extension: There is decreased range of motion, with preserved alignment as above. IMPRESSION: Stable alignment of fixed grade 1 anterolisthesis at L4-5. Intact hardware. No dynamic subluxation. Dictated by: Angie Hargrove M.D. on 06/28/2024 at 7:17 Approved by: Angie Hargrove M.D. on 06/28/2024 at 7:19
== END ==
PROVIDERS: Family Provider Internal Medicine; PCP Internal Medicine; Referring Provider Internal Medicine; Visit Provider Internal Medicine
DX: M43.16 Spondylolisthesis, lumbar region (principal); M54.50 Low back pain, unspecified; G89.29 Other chronic pain; Z98.1 Arthrodesis status
CPT/HCPCS: 72114

== ENCOUNTER → 2024-06-30 14:49 | Outpatient (CLI) | payer MEDICARE, OTHER, SELFPAY ==
--- NOTE | 2024-06-30 14:51 | DI.MRI.S_ITS ---
PROCEDURE: MR AB PANCREATIC/MRCP PROTOCOL INDICATIONS: history of 10mm pancreatic head IPMN TECHNIQUE: Coronal HASTE through the abdomen, axial 2-D FLASH in- and [id number], and breath-hold T2 FSE with fat saturation through the biliary system and pancreas. Oblique coronal and axial thin-slice HASTE, radial thick-slab HASTE centered on the extrahepatic bile ducts. 20 cc ProHance IV contrast. COMPARISON: [facility], CR, XR LUMBAR SPINE 6V W BENDING, 06/26/2024, 10:26. Prior cross-sectional imaging is not available. FINDINGS: Image quality: Diagnostic. Gallbladder: No gallstones or wall thickening. Biliary ducts: No biliary dilation. No choledocholithiasis. Pancreas: No ductal dilation. No peripancreatic fluid collection. No mass or cystic lesion. Particular attention to the head of the pancreas. No restricted diffusion or suspicious enhancement. OTHER: Lung bases: Unremarkable. Liver: No solid mass. Benign hepatic cysts. A larger cyst near the gallbladder measuring 5.5 cm. Spleen: Size is within normal limits. Adrenal Glands: No adrenal nodules. Kidneys and Ureters: No hydronephrosis. No solid mass. No complex renal cystic lesion which requires follow up. Stomach and Bowel: Normal colonic caliber, without significant wall thickening. Peritoneum: No abnormal intraperitoneal fluid. No free air. Ventral Wall: No hernia. Generator device at the right lower back Abdominal Nodes: No retroperitoneal or mesenteric adenopathy by size criteria. Vessels: Aorta and inferior vena cava are normal in size. Bones: No aggressive osseous abnormality. Pedicle screws. IMPRESSION: 1. No pancreatic cyst demonstrated. 2. No mass or suspicious enhancement. 3. No biliary or pancreatic ductal dilatation. Dictated by: Larry Goetz M.D. on 07/17/2024 at 9:10 Approved by: Larry Goetz M.D. on 07/17/2024 at 9:20
== END ==
PROVIDERS: Family Provider Internal Medicine; PCP Internal Medicine; Referring Provider Internal Medicine; Visit Provider Internal Medicine
DX: D49.0 Neoplasm of unspecified behavior of digestive system (principal); K76.89 Other specified diseases of liver; K82.8 Other specified diseases of gallbladder
CPT/HCPCS: 74183; A9579

== ENCOUNTER → 2024-08-07 13:54 | Outpatient (CLI) | payer MEDICARE, OTHER, SELFPAY ==
--- NOTE | 2024-08-07 13:57 | DI.US.S_ITS ---
PROCEDURE: US PELVIC COMPLETE INDICATIONS: FIBROID TECHNIQUE: Real-time scanning was performed of the pelvic organs, with image documentation. Additional endovaginal scanning was necessary due to incomplete visualization of the adnexal and endometrial structures by transabdominal scanning. COMPARISON: None. FINDINGS: Uterus: Uterus is anteverted and normal in size at 6.4 x 2.0 x 5.0 cm. The myometrium is homogeneous. The endometrium measures 2.0 mm in combined thickness. Trace anechoic endometrial fluid. Simple fundal myometrial cyst measuring 1.2 cm. Ovaries: Right ovary surgically absent. Left ovary measures 3.6 x 2.4 x 2.9 cm. Simple left ovarian cyst measuring 3.1 cm. Other: No pathologic free abdominal or pelvic fluid. IMPRESSION: 1. 2 cm endometrial complex which is within normal limits and trace anechoic endometrial fluid. 2. 1.2 cm simple fundal myometrial cyst. 3. 3.1 cm simple left ovarian cyst, which would be designated as O-RADS 2 (almost certainly benign; less than 1% risk of malignancy). A follow-up pelvic ultrasound would be recommended in 12 months. We strive to produce accurate, complete, and clear reports of imaging services. To assist us in improving patient care, this report was composed using standard report templates and voice recognition software. Therefore, it may contain abnormal punctuation, insertions and/or omissions. Occasional wrong-word or sound-alike substitutions may occur. Though we review the report and make efforts to correct it, we do recommend that the report be read carefully in proper context to recognize any text inaccuracies. Dictated by: Dank MALLORY Interpreted: Bryan Angelo MD on 08/07/2024 at 16:16 Transcribed by: RILEY on 08/07/2024 at 16:18 Approved by: Bryan Angelo M.D. on 08/28/2024 at 9:56
== END ==
PROVIDERS: Family Provider Internal Medicine; PCP Internal Medicine; Referring Provider Urology; Visit Provider Urology
DX: D25.1 Intramural leiomyoma of uterus (principal); D25.0 Submucous leiomyoma of uterus; N85.8 Other specified noninflammatory disorders of uterus; N83.292 Other ovarian cyst, left side; Z90.721 Acquired absence of ovaries, unilateral
CPT/HCPCS: 76830; 76856

== ENCOUNTER 2024-08-10 10:45 | Outpatient (RCR) | payer MEDICARE, OTHER, SELFPAY ==
--- NOTE | 2024-05-30 16:26 | PT.OIE ---
Current Diagnoses Other chronic pain (05/30/24) Low back pain, unspecified (05/30/24) Strain of muscle, fascia and tendon of the posterior muscle group at thigh level, left thigh, initial encounter (05/30/24) Past Medical History (Last Reviewed 05/16/24 @ 10:50 by Phillip Ramos MD) Allergic rhinitis Bipolar 2 disorder Chronic low back pain Depression, major, recurrent Dystrophic nail Essential hypertension Gait instability History of colonic polyps Impaired fasting glucose Laryngospasm Mixed hyperlipidemia PERES (nonalcoholic steatohepatitis) Osteochondritis of tibial tuberosity Osteopenia Overweight Primary osteoarthritis involving multiple joints Restless leg syndrome Tinea unguium Urinary incontinence Visit Care Team Role Provider Type Phillip Ramos MD Attending Provider Physician Family Provider Primary Care Provider Referring Provider Specialty: Internal Medicine Address: [address] [place] [address] Email: [email or web address] Physical Therapy Initial Evaluation PT-OP-A Visit Information Start: 05/29/24 16:33 Freq: Status: Active Protocol: Document 05/30/24 11:32 SAK (Rec: 05/30/24 12:13 SAK [id number]) Out-Patient Physical Therapy Visit Information Visit Information Visit Type Initial Evaluation Visit Start Time 11:33 Visit Stop Time 12:15 Visit Number 1 Precautions Precautions Medical History (Reviewed @ 10:50 by Phillip Ramos MD) Allergic rhinitis Bipolar 2 disorder Chronic low back pain Depression, major, recurrent Dystrophic nail Essential hypertension Gait instability History of colonic polyps Impaired fasting glucose Laryngospasm Mixed hyperlipidemia PERES (nonalcoholic steatohepatitis) Osteochondritis of tibial tuberosity Osteopenia Overweight Primary osteoarthritis involving multiple joints Restless leg syndrome Tinea unguium Urinary incontinence spinal fusion right LAMAR (lateral) PT-OP-B Current Condition Start: 05/29/24 16:33 Freq: Status: Active Protocol: Document 05/30/24 11:32 SAK (Rec: 05/30/24 12:13 SAK [id number]) Current Condition History of Current Condition Onset Date 05/04/24 Current Complaints left hip and LBP History of Current Condition GLF due to slick board, bruising left posterior thigh, states fell on left buttock and slid. Went to ER, diagnosed as strain. Iced first 24 hours, then started alternating ice and heat. Then Epsom salt baths thinks made swelling worse. Thinks swelling gone now. Pain persists and reports back pain has worsened (history of LBP with spinal fusion) Spinal fusion L45 October 2021, pain now occasional with bending over without correct body mechanics , has worsened since fall; more frequently. Most pain with sit to stand. Buttock pain constant. For exercises walks around town for errands, yesterday went back to rowing with a group but had buttock pain. Has an exercise machine dual reclined rower and reclined cycle. No new N/T, has chronic numbness left toes , a couple right toes. Prior Treatments and Tests spinal fusion 2021 no imaging after fall Treatment Goals Patient/Caregiver Goals decrease pain, improve function, make sure things don 't bind up. PT-OP-C Subjective Start: 05/29/24 16:33 Freq: Status: Active Protocol: Document 05/30/24 11:32 [facility] (Rec: 06/04/24 15:09 [facility] [id number]) Patient Questionnaires Lower Extremity Functional Scale LEFS Score 43 Neck Disability Index Neck Disability Index Impairment 0% Impaired (Score 0) Oswestry Low Back Index Oswestry Score 20 OP-PT Pain Assessment Pain Assessment Grid Paper Pain Assessment Grid Completed Yes Location left thigh Pain Location Details -12/09 PT-OP-G Mobility & Gait Start: 05/29/24 16:33 Freq: Status: Active Protocol: Document 05/30/24 11:32 SAK (Rec: 06/04/24 15:09 [facility] [id number]) OP Gait Assessment Gait Gait Assistance Required: Independent Assistive Devices Assistive Device None Gait Deviations General Gait Pattern Antalgic Stair Climbing Evaluation Technique/Endurance Stair Climbing Direction Ascend and Descend Stair Climbing Technique Step to Step PT-OP-H Neuro Start: 05/29/24 16:33 Freq: Status: Active Protocol: Document 05/30/24 11:32 SAK (Rec: 06/04/24 15:09 [facility] [id number]) Sensation Evaluation Gross Sensation Gross Sensation WNL PT-OP-J Posture/Palpation/Skin Start: 05/29/24 16:33 Freq: Status: Active Protocol: Document 05/30/24 11:32 SAK (Rec: 05/30/24 12:13 [facility] [id number]) Posture Evaluation Position Standing Head/C-Spine Posture Forward Head T-Spine Posture Increased Kyphosis L-Spine Posture Increased Lordosis Scapula Posture (L) Protracted,(R) Protracted Arm Posture (L) Internally Rotated Pelvis Posture Anteriorly Tilted Palpation Assessment Location right anterior thigh Palpation Findings Soft Tissue Tightness left buttock, hamstring Palpation Findings Soft Tissue Tightness, Tenderness l/s Palpation Findings Soft Tissue Tightness,Muscle Guarding Palpation Details right greater than left Skin Assessment Edema Assessment LEs Comments no significant edema noted Other Assessments Skin Assessment Comments no bruising PT-OP-K Range of Motion Start: 05/29/24 16:33 Freq: Status: Active Protocol: Document 05/30/24 11:32 [facility] (Rec: 06/04/24 15:09 [facility] [id number]) Lumbar Spine Range of Motion Lumbar Spine Active Flexion 45 Extension 10 Rotation Left 15 Rotation Right 15 Lateral Flexion Left 20 Lateral Flexion Right 20 ROM Limitations Soft Tissue Tightness,Pain Hip Goniometric Range of Motion Hip Left Flexion w/Knee Flexed 95 Straight Leg Raise 65 Extension 5 Abduction 25 Internal Rotation 15 External Rotation 60 Right Hip ROM WFL Yes Hip ROM Limitations Hip ROM Limitations Soft Tissue Tightness,Pain Knee Goniometric Range of Motion Knee jered Knee ROM WFL Yes PT-OP-M Strength Start: 05/29/24 16:33 Freq: Status: Active Protocol: Document 05/30/24 11:32 [facility] (Rec: 05/30/24 12:13 [facility] [id number]) Trunk Strength Trunk Manual Muscle Testing Flexion 3+ Fair+ Extension 3- Fair- Hip Strength Hip Manual Muscle Testing Left Flexion (L2) 4- Good- Extension (S1) 3+ Fair+ Abduction 4 Good Adduction 4- Good- External Rotation 4- Good- Internal Rotation 4 Good Right Flexion (L2) 4- Good- Extension (S1) 3+ Fair+ Abduction 4 Good Adduction 4- Good- External Rotation 4- Good- Internal Rotation 4 Good Knee Strength Knee Manual Muscle Testing Left Flexion (S2) 3+ Fair+ Extension (L3) 4- Good- Comments pain with resisted flexion Right Flexion (S2) 5 Normal Extension (L3) 4- Good- Ankle/Foot Strength Ankle and Foot Manual Muscle Testing Left Dorsiflexion (L4) 4+ Good+ Plantarflexion (S1) 3+ Fair+ Right Dorsiflexion (L4) 4- Good- Plantarflexion (S1) 3+ Fair+ PT-OP-Q Treatments Start: 05/29/24 16:33 Freq: Status: Active Protocol: Document 05/30/24 11:32 [facility] (Rec: 06/04/24 15:09 [facility] [id number]) Self-Care/Home Management Treatment Education Patient Education Home Exercise Program,Pain Management Other Education issued written HO PT-OP-T Assessment and Plan Start: 05/29/24 16:33 Freq: Status: Active Protocol: Document 05/30/24 11:32 [facility] (Rec: 06/04/24 15:09 [facility] [id number]) Physical Therapy Assessment Rehab Potential Rehabilitation Potential Good Evaluation Complexity Number of Personal Factors/Comorbidities 1-2 Number of Body Systems Impaired 3 Clinical Presentation at Evaluation Evolving Impairments Impairments Activity Tolerance,Pain, Strength Goals Three Impairment antalgic gait Skilled Nursing Goal (LTG) Patient will be able to ambulate on level surfaces and stairs without limp and with ability to alternate LE's on stairs LTG Duration 07/28/24 Four Impairment soft tissue tightness posterior left thigh, buttock Extractor Tender Raw Stock Goal (LTG) Improve soft tissue mobility to WNL to promote full active use of left LE Two Impairment Lower extremity functional scale score 43/80, Oswestry 20 % Extractor Tender Raw Stock Goal (LTG) Improve LEFS score to at least 70% as measure of improved low back and left LE function LTG Duration 07/28/24 One Impairment right posterior thigh, buttock , and LBP pain 4-8/10 Skilled Nursing Goal (LTG) Decrease pain to no greater than 2/10 with all usual activities LTG Duration 07/28/24 Assessment Summary Assessment Patient presents to PT with function-limiting pain in her low back, left buttock, posterior left thigh s/p ground level fall.Reports buttock pain is constant, thigh and LBP itnermittant. Patient presents with antalgic gait, weakness left LE, soft tissue tightness, and activity intolerance with signs and symptoms consistent with hamstring strain. Patient has history prior lumbar spinal fusion, having increased pain at this time with forward flexion especially if does without proper mechanics. Feel she would benefit from PT to decrease her pain and improve her activity tolerance sufficient to allow her to return to her prior level of function. Initiated therapeutic exercise with HEP instruction and patient was issued written handout. She demonstrated good understanding. If she doesn't respond positively to PT feel further imaging may be indicated . POC was discussed and she was in agreement. Physical Therapy Plan Frequency and Duration Frequency of Treatment 2x/Week Duration of treatment (weeks) 8 Plan of Care Start Date 05/30/24 Plan of Care End Date 08/03/24 Therapeutic Interventions Therapeutic Interventions Gait Training,Home Exercise Program,Manual Therapy, Neuromuscular Re-education, Patient/Caregiver Education, Self-Care/Home Management,Soft Tissue Mobilization,Taping, Therapeutic Activities, Therapeutic Exercises Modalities Cold Pack/Ice Massage,Electric Stimulation,Hot Packs, Infrared Therapy,Iontophoresis ,Ultrasound Next Visit Focus/Plan Next Note Type Treatment Note Next Visit Plan review HEP, provide manual techniques to left hamstring, consider KT tape, modalities PRN.
--- NOTE | 2024-05-30 16:26 | PT.OPPOC ---
Physical, Occupational & Speech Therapy At [facility] Current Diagnoses Other chronic pain (05/30/24) Low back pain, unspecified (05/30/24) Strain of muscle, fascia and tendon of the posterior muscle group at thigh level, left thigh, initial encounter (05/30/24) Visit Care Team Role Provider Type Phillip Ramos MD Attending Provider Physician Family Provider Primary Care Provider Referring Provider Specialty: Internal Medicine Address: [address] [place] [address], [facility] Email: [email or web address] Plan Of Care PT-OP-B Current Condition Start: 05/29/24 16:33 Freq: Status: Active Protocol: Document 05/30/24 11:32 SAK (Rec: 05/30/24 12:13 SAK [id number]) Current Condition History of Current Condition Onset Date 05/04/24 Current Complaints left hip and LBP History of Current Condition GLF due to slick board, bruising left posterior thigh, states fell on left buttock and slid. Went to ER, diagnosed as strain. Iced first 24 hours, then started alternating ice and heat. Then Epsom salt baths thinks made swelling worse. Thinks swelling gone now. Pain persists and reports back pain has worsened (history of LBP with spinal fusion) Spinal fusion L45 October 2021, pain now occasional with bending over without correct body mechanics , has worsened since fall; more frequently. Most pain with sit to stand. Buttock pain constant. For exercises walks around town for errands, yesterday went back to rowing with a group but had buttock pain. Has an exercise machine dual reclined rower and reclined cycle. No new N/T, has chronic numbness left toes , a couple right toes. Prior Treatments and Tests spinal fusion 2021 no imaging after fall Treatment Goals Patient/Caregiver Goals decrease pain, improve function, make sure things don 't bind up. PT-OP-T Assessment and Plan Start: 05/29/24 16:33 Freq: Status: Active Protocol: Document 05/30/24 11:32 SAK (Rec: 06/04/24 15:09 SAK [id number]) Physical Therapy Assessment Rehab Potential Rehabilitation Potential Good Evaluation Complexity Number of Personal Factors/Comorbidities 1-2 Number of Body Systems Impaired 3 Clinical Presentation at Evaluation Evolving Impairments Impairments Activity Tolerance,Pain, Strength Goals Three Impairment antalgic gait Ruling Technician Goal (LTG) Patient will be able to ambulate on level surfaces and stairs without limp and with ability to alternate LE's on stairs LTG Duration 07/28/24 Four Impairment soft tissue tightness posterior left thigh, buttock Ruling Technician Goal (LTG) Improve soft tissue mobility to WNL to promote full active use of left LE Two Impairment Lower extremity functional scale score 43/80, Oswestry 20 % Group Home Goal (LTG) Improve LEFS score to at least 70% as measure of improved low back and left LE function LTG Duration 07/28/24 One Impairment right posterior thigh, buttock , and LBP pain 4-8/10 Ruling Technician Goal (LTG) Decrease pain to no greater than 2/10 with all usual activities LTG Duration 07/28/24 Assessment Summary Assessment Patient presents to PT with function-limiting pain in her low back, left buttock, posterior left thigh s/p ground level fall.Reports buttock pain is constant, thigh and LBP itnermittant. Patient presents with antalgic gait, weakness left LE, soft tissue tightness, and activity intolerance with signs and symptoms consistent with hamstring strain. Patient has history prior lumbar spinal fusion, having increased pain at this time with forward flexion especially if does without proper mechanics. Feel she would benefit from PT to decrease her pain and improve her activity tolerance sufficient to allow her to return to her prior level of function. Initiated therapeutic exercise with HEP instruction and patient was issued written handout. She demonstrated good understanding. If she doesn't respond positively to PT feel further imaging may be indicated . POC was discussed and she was in agreement. Physical Therapy Plan Frequency and Duration Frequency of Treatment 2x/Week Duration of treatment (weeks) 8 Plan of Care Start Date 05/30/24 Plan of Care End Date 08/03/24 Therapeutic Interventions Therapeutic Interventions Gait Training,Home Exercise Program,Manual Therapy, Neuromuscular Re-education, Patient/Caregiver Education, Self-Care/Home Management,Soft Tissue Mobilization,Taping, Therapeutic Activities, Therapeutic Exercises Modalities Cold Pack/Ice Massage,Electric Stimulation,Hot Packs, Infrared Therapy,Iontophoresis ,Ultrasound Next Visit Focus/Plan Next Note Type Treatment Note Next Visit Plan review HEP, provide manual techniques to left hamstring, consider KT tape, modalities PRN. Plan of Care Dates Plan of Care Start Date 05/30/24 Plan of Care End Date 08/03/24 Electronically Signed by: Gabriela Giles, PT 06/04/24 [id number] If you are in agreement with this Plan of Care, please return a signed and dated copy. I have reviewed this Plan of Care and certify that the skilled therapy services above are required to meet the patient?s needs. Physician Signature Date Printed Name and Credentials Clinical Instructor Signature Printed Name and Credentials
--- NOTE | 2024-06-06 14:07 | PT.OTN ---
Current Diagnoses Other chronic pain (06/06/24) Low back pain, unspecified (06/06/24) Strain of muscle, fascia and tendon of the posterior muscle group at thigh level, left thigh, initial encounter (06/06/24) Physical Therapy Treatment Note PT-OP-A Visit Information Start: 05/29/24 16:33 Freq: Status: Active Protocol: Document 06/06/24 10:42 SAK (Rec: 06/06/24 11:31 SAK [id number]) Out-Patient Physical Therapy Visit Information Visit Information Visit Type Treatment Note Visit Start Time 10:45 Visit Stop Time 11:40 Visit Number 2 Precautions Precautions Medical History (Reviewed @ 10:50 by Phillip Ramos MD) Allergic rhinitis Bipolar 2 disorder Chronic low back pain Depression, major, recurrent Dystrophic nail Essential hypertension Gait instability History of colonic polyps Impaired fasting glucose Laryngospasm Mixed hyperlipidemia PERES (nonalcoholic steatohepatitis) Osteochondritis of tibial tuberosity Osteopenia Overweight Primary osteoarthritis involving multiple joints Restless leg syndrome Tinea unguium Urinary incontinence spinal fusion right LAMAR (lateral) PT-OP-B Current Condition Start: 05/29/24 16:33 Freq: Status: Active Protocol: Document 06/06/24 10:42 SAK (Rec: 06/06/24 11:31 SAK [id number]) Current Condition History of Current Condition Onset Date 05/04/24 Current Complaints left hip and LBP History of Current Condition GLF due to slick board, bruising left posterior thigh, states fell on left buttock and slid. Went to ER, diagnosed as strain. Iced first 24 hours, then started alternating ice and heat. Then Epsom salt baths thinks made swelling worse. Thinks swelling gone now. Pain persists and reports back pain has worsened (history of LBP with spinal fusion) Spinal fusion L45 October 2021, pain now occasional with bending over without correct body mechanics , has worsened since fall; more frequently. Most pain with sit to stand. Buttock pain constant. For exercises walks around town for errands, yesterday went back to rowing with a group but had buttock pain. Has an exercise machine dual reclined rower and reclined cycle. No new N/T, has chronic numbness left toes , a couple right toes. Prior Treatments and Tests spinal fusion 2021 no imaging after fall PT-OP-C Subjective Start: 05/29/24 16:33 Freq: Status: Active Protocol: Document 06/06/24 10:42 SAK (Rec: 06/06/24 11:31 SAK [id number]) OP-PT Subjective Patient Comments Patient Comments Did HEP, and used reclining rower at home. Did a couple small hikes with some elevation, was fine after. Posterior thigh tool tender to the touch PT-OP-G Mobility & Gait Start: 05/29/24 16:33 Freq: Status: Active Protocol: Document 05/30/24 11:32 SAK (Rec: 06/04/24 15:09 [facility] [id number]) OP Gait Assessment Gait Gait Assistance Required: Independent Assistive Devices Assistive Device None Gait Deviations General Gait Pattern Antalgic Stair Climbing Evaluation Technique/Endurance Stair Climbing Direction Ascend and Descend Stair Climbing Technique Step to Step PT-OP-H Neuro Start: 05/29/24 16:33 Freq: Status: Active Protocol: Document 05/30/24 11:32 SAK (Rec: 06/04/24 15:09 [facility] [id number]) Sensation Evaluation Gross Sensation Gross Sensation WNL PT-OP-J Posture/Palpation/Skin Start: 05/29/24 16:33 Freq: Status: Active Protocol: Document 05/30/24 11:32 SAK (Rec: 05/30/24 12:13 [facility] [id number]) Posture Evaluation Position Standing Head/C-Spine Posture Forward Head T-Spine Posture Increased Kyphosis L-Spine Posture Increased Lordosis Scapula Posture (L) Protracted,(R) Protracted Arm Posture (L) Internally Rotated Pelvis Posture Anteriorly Tilted Palpation Assessment Location right anterior thigh Palpation Findings Soft Tissue Tightness left buttock, hamstring Palpation Findings Soft Tissue Tightness, Tenderness l/s Palpation Findings Soft Tissue Tightness,Muscle Guarding Palpation Details right greater than left Skin Assessment Edema Assessment LEs Comments no significant edema noted Other Assessments Skin Assessment Comments no bruising PT-OP-K Range of Motion Start: 05/29/24 16:33 Freq: Status: Active Protocol: Document 05/30/24 11:32 SAK (Rec: 06/04/24 15:09 [facility] [id number]) Lumbar Spine Range of Motion Lumbar Spine Active Flexion 45 Extension 10 Rotation Left 15 Rotation Right 15 Lateral Flexion Left 20 Lateral Flexion Right 20 ROM Limitations Soft Tissue Tightness,Pain Hip Goniometric Range of Motion Hip Left Flexion w/Knee Flexed 95 Straight Leg Raise 65 Extension 5 Abduction 25 Internal Rotation 15 External Rotation 60 Right Hip ROM WFL Yes Hip ROM Limitations Hip ROM Limitations Soft Tissue Tightness,Pain Knee Goniometric Range of Motion Knee jered Knee ROM WFL Yes PT-OP-M Strength Start: 05/29/24 16:33 Freq: Status: Active Protocol: Document 05/30/24 11:32 [facility] (Rec: 05/30/24 12:13 [facility] [id number]) Trunk Strength Trunk Manual Muscle Testing Flexion 3+ Fair+ Extension 3- Fair- Hip Strength Hip Manual Muscle Testing Left Flexion (L2) 4- Good- Extension (S1) 3+ Fair+ Abduction 4 Good Adduction 4- Good- External Rotation 4- Good- Internal Rotation 4 Good Right Flexion (L2) 4- Good- Extension (S1) 3+ Fair+ Abduction 4 Good Adduction 4- Good- External Rotation 4- Good- Internal Rotation 4 Good Knee Strength Knee Manual Muscle Testing Left Flexion (S2) 3+ Fair+ Extension (L3) 4- Good- Comments pain with resisted flexion Right Flexion (S2) 5 Normal Extension (L3) 4- Good- Ankle/Foot Strength Ankle and Foot Manual Muscle Testing Left Dorsiflexion (L4) 4+ Good+ Plantarflexion (S1) 3+ Fair+ Right Dorsiflexion (L4) 4- Good- Plantarflexion (S1) 3+ Fair+ PT-OP-Q Treatments Start: 05/29/24 16:33 Freq: Status: Active Protocol: Document 06/06/24 10:42 [facility] (Rec: 06/06/24 11:31 [facility] [id number]) Cardio Equipment Recumbent Stepper (Sci-Fit) Duration (Minutes) 7 Resistance 2 Seat Position 6 Gym Equipment Shuttle Recovery squats Details bilateral Resistance 37# (2 navy) Shuttle Recovery Platform Stable Reps/Time 2x10, cues for gluteal activation, neutral LE's Therapeutic Exercises Supine Exercises bridge Reps/Minutes 10x Comments cues for pain-free ROM supine clam Resistance L2 Reps/Minutes 10x5 ball squeeze Equipment Used green ball Reps/Minutes 10x5 Sidelying Exercises hip abd Reps/Minutes 10x Comments cues for top leg staying directly above bottom Standing Exercises wall posture Reps/Minutes 3 min Comments cues for alignment and muscle activation sequencing Manual Therapy Treatment Soft Tissue Mobilization jered LE's Body Location quads, ITB, glut med Mobilization Type Myofascial Release,Strumming Body Position Hooklying Self-Care/Home Management Treatment Education Other Education added S/L hip ab and chair squats PT-OP-T Assessment and Plan Start: 05/29/24 16:33 Freq: Status: Active Protocol: Document 06/06/24 10:42 [facility] (Rec: 06/06/24 11:31 [facility] [id number]) Physical Therapy Assessment Impairments Impairments Activity Tolerance,Pain, Strength Goals Three Impairment antalgic gait Electronic [employer] Gathering Camera Person Goal (LTG) Patient will be able to ambulate on level surfaces and stairs without limp and with ability to alternate LE's on stairs LTG Duration 07/28/24 Four Impairment soft tissue tightness posterior left thigh, buttock Impairment Activities-specific balance confidence (ABC) Scale 24% [employer] G[employer] Camera Person Goal (LTG) Improve soft tissue mobility to WNL to promote full active use of left LE Two Impairment Lower extremity functional scale score 43/80, Oswestry 20 % Impairment Patient unable to go hiking safely [employer] G[employer] Camera Person Goal (LTG) Improve LEFS score to at least 70% as measure of improved low back and left LE function LTG Duration 07/28/24 One Impairment right posterior thigh, buttock , and LBP pain 4-8/10 Impairment Dynamic gait index 54% [employer] Camera Person Goal (LTG) Decrease pain to no greater than 2/10 with all usual activities LTG Duration 07/28/24 Assessment Summary Assessment Good tolerance for HEP, added sidelying hip abduction, chair squat. Patient activity level increased with her taking a couple walks past week. . Multiple areas of muscular tightness thighs, reported overdoing it with rolling pin especially on right.Good progress. Physical Therapy Plan Frequency and Duration Frequency of Treatment 2x/Week Duration of treatment (weeks) 8 Plan of Care Start Date 05/30/24 Plan of Care End Date 08/03/24 Therapeutic Interventions Therapeutic Interventions Gait Training,Home Exercise Program,Manual Therapy, Neuromuscular Re-education, Patient/Caregiver Education, Self-Care/Home Management,Soft Tissue Mobilization,Taping, Therapeutic Activities, Therapeutic Exercises Modalities Cold Pack/Ice Massage,Electric Stimulation,Hot Packs, Infrared Therapy,Iontophoresis ,Ultrasound Next Visit Focus/Plan Next Note Type Treatment Note Next Visit Plan Continue progression of LE and core strengthening as toleated, STM as needed thigh.
--- NOTE | 2024-06-08 11:35 | PT.OTN ---
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 Visits 1 Precautions Precautions Medical History (Reviewed @ 10:50 by Phillip Ramos MD) Allergic rhinitis Bipolar 2 disorder Chronic low back pain Depression, major, recurrent Dystrophic nail Essential hypertension Gait instability History of colonic polyps Impaired fasting glucose Laryngospasm Mixed hyperlipidemia PERES (nonalcoholic steatohepatitis) Osteochondritis of tibial tuberosity Osteopenia Overweight Primary osteoarthritis involving multiple joints Restless leg syndrome Tinea unguium Urinary incontinence spinal fusion right LAMAR 2016 (lateral scar) PT-OP-B Current Condition Start: 05/29/24 16:33 Freq: Status: Active Protocol: Document 06/06/24 10:42 SAK (Rec: 06/06/24 11:31 SAK [id number]) Current Condition History of Current Condition Onset Date 05/04/24 Current Complaints left hip and LBP History of Current Condition GLF due to slick board, bruising left posterior thigh, states fell on left buttock and slid. Went to ER, diagnosed as strain. Iced first 24 hours, then started alternating ice and heat. Then Epsom salt baths thinks made swelling worse. Thinks swelling gone now. Pain persists and reports back pain has worsened (history of LBP with spinal fusion) Spinal fusion L45 October 2021, pain now occasional with bending over without correct body mechanics , has worsened since fall; more frequently. Most pain with sit to stand. Buttock pain constant. For exercises walks around town for errands, yesterday went back to rowing with a group but had buttock pain. Has an exercise machine dual reclined rower and reclined cycle. No new N/T, has chronic numbness left toes , a couple right toes. Prior Treatments and Tests spinal fusion 2022 no imaging after fall PT-OP-C Subjective Start: 05/29/24 16:33 Freq: Status: Active Protocol: Document 06/08/24 10:52 SP (Rec: 06/08/24 11:37 SP [id number]) OP-PT Subjective Patient Comments Patient Comments Pt reports felt good after last tx with no issues and compliant with HEP. She took an epson salt bath too and felt good. She used reclined stepper/ combo rower 45 min, not super agressive due to checking phone. She reports R hip cramp/catch front of hip when comes to standing at times. She is member of [employer] and returned to rowing, reported hard time position #4 with oscar on R. She asked if next time can be in position # 3 so oscar is on L. PT-OP-G Mobility & Gait Start: 05/29/24 16:33 Freq: Status: Active Protocol: Document 05/30/24 11:32 SAK (Rec: 06/04/24 15:09 SAK [id number]) OP Gait Assessment Gait Gait Assistance Required: Independent Assistive Devices Assistive Device None Gait Deviations General Gait Pattern Antalgic Stair Climbing Evaluation Technique/Endurance Stair Climbing Direction Ascend and Descend Stair Climbing Technique Step to Step PT-OP-H Neuro Start: 05/29/24 16:33 Freq: Status: Active Protocol: Document 05/30/24 11:32 SAK (Rec: 06/04/24 15:09 SAK [id number]) Sensation Evaluation Gross Sensation Gross Sensation WNL PT-OP-J Posture/Palpation/Skin Start: 05/29/24 16:33 Freq: Status: Active Protocol: Document 05/30/24 11:32 SAK (Rec: 05/30/24 12:13 SAK [id number]) Posture Evaluation Position Standing Head/C-Spine Posture Forward Head T-Spine Posture Increased Kyphosis L-Spine Posture Increased Lordosis Scapula Posture (L) Protracted,(R) Protracted Arm Posture (L) Internally Rotated Pelvis Posture Anteriorly Tilted Palpation Assessment Location right anterior thigh Palpation Findings Soft Tissue Tightness left buttock, hamstring Palpation Findings Soft Tissue Tightness, Tenderness l/s Palpation Findings Soft Tissue Tightness,Muscle Guarding Palpation Details right greater than left Skin Assessment Edema Assessment LEs Comments no significant edema noted Other Assessments Skin Assessment Comments no bruising PT-OP-K Range of Motion Start: 05/29/24 16:33 Freq: Status: Active Protocol: Document 05/30/24 11:32 SAK (Rec: 06/04/24 15:09 SAK [id number]) Lumbar Spine Range of Motion Lumbar Spine Active Flexion 45 Extension 10 Rotation Left 15 Rotation Right 15 Lateral Flexion Left 20 Lateral Flexion Right 20 ROM Limitations Soft Tissue Tightness,Pain Hip Goniometric Range of Motion Hip Left Flexion w/Knee Flexed 95 Straight Leg Raise 65 Extension 5 Abduction 25 Internal Rotation 15 External Rotation 60 Right Hip ROM WFL Yes Hip ROM Limitations Hip ROM Limitations Soft Tissue Tightness,Pain Knee Goniometric Range of Motion Knee jered Knee ROM WFL Yes PT-OP-M Strength Start: 05/29/24 16:33 Freq: Status: Active Protocol: Document 05/30/24 11:32 SAK (Rec: 05/30/24 12:13 [facility] [id number]) Trunk Strength Trunk Manual Muscle Testing Flexion 3+ Fair+ Extension 3- Fair- Hip Strength Hip Manual Muscle Testing Left Flexion (L2) 4- Good- Extension (S1) 3+ Fair+ Abduction 4 Good Adduction 4- Good- External Rotation 4- Good- Internal Rotation 4 Good Right Flexion (L2) 4- Good- Extension (S1) 3+ Fair+ Abduction 4 Good Adduction 4- Good- External Rotation 4- Good- Internal Rotation 4 Good Knee Strength Knee Manual Muscle Testing Left Flexion (S2) 3+ Fair+ Extension (L3) 4- Good- Comments pain with resisted flexion Right Flexion (S2) 5 Normal Extension (L3) 4- Good- Ankle/Foot Strength Ankle and Foot Manual Muscle Testing Left Dorsiflexion (L4) 4+ Good+ Plantarflexion (S1) 3+ Fair+ Right Dorsiflexion (L4) 4- Good- Plantarflexion (S1) 3+ Fair+ PT-OP-Q Treatments Start: 05/29/24 16:33 Freq: Status: Active Protocol: Document 06/08/24 10:52 SP (Rec: 06/08/24 11:37 SP [id number]) Cardio Equipment Recumbent Stepper (Sci-Fit) Duration (Minutes) 8 Resistance 3>3.5 Seat Position 7 Other BUE & BLEs Therapeutic Exercises Supine Exercises bridge Supine Exercise Name updated segmental lift/lower Resistance TB #2 at thighs Reps/Minutes 5 SH x10 Comments cues for pain-free ROM supine clam Resistance L2 at thighs Reps/Minutes 10x5 Comments good form, little discomfort posterolateral L femur ball squeeze Equipment Used green ball Reps/Minutes 10x10 Comments tolerated increase 10 SH Sidelying Exercises hip abd Sidelying Exercise Name reviewed HEP Side bilateral Resistance AROM> TB #1 light blue Reps/Minutes 10 reps each side (L TB, R AROM then TB) Comments occ cues with good recheck side alignment- R leg weaker Standing Exercises paloff press Standing Exercise Name added to HEP /c HO Side bilateral Resistance TB #2 double orange Reps/Minutes 10 reps each side Comments cued squats Standing Exercise Name reviewed HEP Reps/Minutes 10 reps (bid) Comments arm across chest, good hip hindge to seat touch go Other Exercises self STMs Other Exercise Name Verbal review: self rolling stick & heels of hands/ knuckles on leg stepper Comments R Adductors, ITB, quads, Manual Therapy Treatment Joint Mobilizations R hip Joint future Body Position use strap Comments supine: anteromedial (from across table)- MWW hip IR/ER Prone: PA prox posterior femur MWM hip IR/ER and CR if limited range. PT-OP-T Assessment and Plan Start: 05/29/24 16:33 Freq: Status: Active Protocol: Document 06/08/24 10:52 SP (Rec: 06/08/24 11:37 SP [id number]) Physical Therapy Assessment Goals Three Impairment antalgic gait Detention Goal (LTG) Patient will be able to ambulate on level surfaces and stairs without limp and with ability to alternate LE's on stairs LTG Duration 07/28/24 Four Impairment soft tissue tightness posterior left thigh, buttock Impairment Activities-specific balance confidence (ABC) Scale 24% Computing Systems Mechanic Goal (LTG) Improve soft tissue mobility to WNL to promote full active use of left LE Two Impairment Lower extremity functional scale score 43/80, Oswestry 20 % Impairment Patient unable to go hiking safely Computing Systems Mechanic Goal (LTG) Improve LEFS score to at least 70% as measure of improved low back and left LE function LTG Duration 07/28/24 One Impairment right posterior thigh, buttock , and LBP pain 4-8/10 Impairment Dynamic gait index 54% Detention Goal (LTG) Decrease pain to no greater than 2/10 with all usual activities LTG Duration 07/28/24 Assessment Summary Assessment Pt tolerated ther ex well, was able to tolerate increased resistance during side hip abd and modified to segmental bridge. Improved squat no UE support to chair and initiated resisted paloff press for core progression with no adverse affects. Physical Therapy Plan Frequency and Duration Frequency of Treatment 2x/Week Duration of treatment (weeks) 8 Plan of Care Start Date 05/30/24 Plan of Care End Date 08/03/24 Therapeutic Interventions Therapeutic Interventions Gait Training,Home Exercise Program,Manual Therapy, Neuromuscular Re-education, Patient/Caregiver Education, Self-Care/Home Management,Soft Tissue Mobilization,Taping, Therapeutic Activities, Therapeutic Exercises Modalities Cold Pack/Ice Massage,Electric Stimulation,Hot Packs, Infrared Therapy,Iontophoresis ,Ultrasound Next Visit Focus/Plan Next Note Type Treatment Note Next Visit Plan Recheck paloff press and wall posture and assess increase TB resistance ok abd&bridge next tx. POC: Continue progression of LE and core strengthening as tolerated, manual hip mobs per suggestion next tx as needed support less pinching R anterior hip.
--- NOTE | 2024-06-12 17:17 | PT.OTN ---
Current Diagnoses Other chronic pain (06/12/24) Low back pain, unspecified (06/12/24) Strain of muscle, fascia and tendon of the posterior muscle group at thigh level, left thigh, initial encounter (06/12/24) Physical Therapy Treatment Note PT-OP-A Visit Information Start: 05/29/24 16:33 Freq: Status: Active Protocol: Document 06/12/24 12:59 [facility]AK (Rec: 06/12/24 13:51 [facility]AK [id number]) Out-Patient Physical Therapy Visit Information Visit Information Visit Type Treatment Note Visit Start Time 13:00 Visit Stop Time 13:55 Visit Number 4 Number of RACE RELATIONS PROFESSOR Visits 0 Precautions Precautions Medical History (Reviewed @ 10:50 by Phillip Ramos MD) Allergic rhinitis Bipolar 2 disorder Chronic low back pain Depression, major, recurrent Dystrophic nail Essential hypertension Gait instability History of colonic polyps Impaired fasting glucose Laryngospasm Mixed hyperlipidemia PERES (nonalcoholic steatohepatitis) Osteochondritis of tibial tuberosity Osteopenia Overweight Primary osteoarthritis involving multiple joints Restless leg syndrome Tinea unguium Urinary incontinence spinal fusion right LAMAR 2016 (lateral scar) PT-OP-B Current Condition Start: 05/29/24 16:33 Freq: Status: Active Protocol: Document 06/12/24 12:59 [facility] (Rec: 06/12/24 13:51 SAK [id number]) Current Condition History of Current Condition Onset Date 05/04/24 Current Complaints left hip and LBP History of Current Condition GLF due to slick board, bruising left posterior thigh, states fell on left buttock and slid. Went to ER, diagnosed as strain. Iced first 24 hours, then started alternating ice and heat. Then Epsom salt baths thinks made swelling worse. Thinks swelling gone now. Pain persists and reports back pain has worsened (history of LBP with spinal fusion) Spinal fusion L45 October 2021, pain now occasional with bending over without correct body mechanics , has worsened since fall; more frequently. Most pain with sit to stand. Buttock pain constant. For exercises walks around town for errands, yesterday went back to rowing with a group but had buttock pain. Has an exercise machine dual reclined rower and reclined cycle. No new N/T, has chronic numbness left toes , a couple right toes. Prior Treatments and Tests spinal fusion 2022 no imaging after fall PT-OP-C Subjective Start: 05/29/24 16:33 Freq: Status: Active Protocol: Document 06/12/24 12:59 [facility]AK (Rec: 06/12/24 13:51 [facility] [id number]) OP-PT Subjective Patient Comments Patient Comments Hasn't really exercised since last PT session, not sure why. Pain has been decreasing with PT worst posterior left thigh and anterior right hip. Using heating pad on legs. PT-OP-G Mobility & Gait Start: 05/29/24 16:33 Freq: Status: Active Protocol: Document 05/30/24 11:32 [facility]AK (Rec: 06/04/24 15:09 [facility] [id number]) OP Gait Assessment Gait Gait Assistance Required: Independent Assistive Devices Assistive Device None Gait Deviations General Gait Pattern Antalgic Stair Climbing Evaluation Technique/Endurance Stair Climbing Direction Ascend and Descend Stair Climbing Technique Step to Step PT-OP-H Neuro Start: 05/29/24 16:33 Freq: Status: Active Protocol: Document 05/30/24 11:32 SAK (Rec: 06/04/24 15:09 [facility] [id number]) Sensation Evaluation Gross Sensation Gross Sensation WNL PT-OP-J Posture/Palpation/Skin Start: 05/29/24 16:33 Freq: Status: Active Protocol: Document 05/30/24 11:32 SAK (Rec: 05/30/24 12:13 [facility] [id number]) Posture Evaluation Position Standing Head/C-Spine Posture Forward Head T-Spine Posture Increased Kyphosis L-Spine Posture Increased Lordosis Scapula Posture (L) Protracted,(R) Protracted Arm Posture (L) Internally Rotated Pelvis Posture Anteriorly Tilted Palpation Assessment Location right anterior thigh Palpation Findings Soft Tissue Tightness left buttock, hamstring Palpation Findings Soft Tissue Tightness, Tenderness l/s Palpation Findings Soft Tissue Tightness,Muscle Guarding Palpation Details right greater than left Skin Assessment Edema Assessment LEs Comments no significant edema noted Other Assessments Skin Assessment Comments no bruising PT-OP-K Range of Motion Start: 05/29/24 16:33 Freq: Status: Active Protocol: Document 05/30/24 11:32 [facility]AK (Rec: 06/04/24 15:09 [facility] [id number]) Lumbar Spine Range of Motion Lumbar Spine Active Flexion 45 Extension 10 Rotation Left 15 Rotation Right 15 Lateral Flexion Left 20 Lateral Flexion Right 20 ROM Limitations Soft Tissue Tightness,Pain Hip Goniometric Range of Motion Hip Left Flexion w/Knee Flexed 95 Straight Leg Raise 65 Extension 5 Abduction 25 Internal Rotation 15 External Rotation 60 Right Hip ROM WFL Yes Hip ROM Limitations Hip ROM Limitations Soft Tissue Tightness,Pain Knee Goniometric Range of Motion Knee jered Knee ROM WFL Yes PT-OP-M Strength Start: 05/29/24 16:33 Freq: Status: Active Protocol: Document 05/30/24 11:32 [facility] (Rec: 05/30/24 12:13 [facility] [id number]) Trunk Strength Trunk Manual Muscle Testing Flexion 3+ Fair+ Extension 3- Fair- Hip Strength Hip Manual Muscle Testing Left Flexion (L2) 4- Good- Extension (S1) 3+ Fair+ Abduction 4 Good Adduction 4- Good- External Rotation 4- Good- Internal Rotation 4 Good Right Flexion (L2) 4- Good- Extension (S1) 3+ Fair+ Abduction 4 Good Adduction 4- Good- External Rotation 4- Good- Internal Rotation 4 Good Knee Strength Knee Manual Muscle Testing Left Flexion (S2) 3+ Fair+ Extension (L3) 4- Good- Comments pain with resisted flexion Right Flexion (S2) 5 Normal Extension (L3) 4- Good- Ankle/Foot Strength Ankle and Foot Manual Muscle Testing Left Dorsiflexion (L4) 4+ Good+ Plantarflexion (S1) 3+ Fair+ Right Dorsiflexion (L4) 4- Good- Plantarflexion (S1) 3+ Fair+ PT-OP-Q Treatments Start: 05/29/24 16:33 Freq: Status: Active Protocol: Document 06/12/24 12:59 [facility] (Rec: 06/12/24 13:51 [facility] [id number]) Cardio Equipment Recumbent Stepper (Sci-Fit) Duration (Minutes) 10 Resistance 4.4 Seat Position 7 Other BUE &LEs 7 min, LE's only 3 min, 1.4 mi Gym Equipment Cable Column (Body Solid) hamstring curl Resistance 20 Reps/Time 10x2 Shuttle Recovery Unilateral Squats Resistance 37# Shuttle Recovery Platform Stable Reps/Time 15x2 Therapeutic Exercises Supine Exercises SLR Comments bent knee bridge Supine Exercise Name updated segmental lift/lower Resistance TB #2 at thighs Reps/Minutes 5 SH x10 Comments cues for pain-free ROM supine clam Resistance L2 at thighs Reps/Minutes 10x5 Comments good form, little discomfort posterolateral L femur ball squeeze Equipment Used green ball Reps/Minutes 10x10 Comments tolerated increase 10 SH Sidelying Exercises hip abd Sidelying Exercise Name reviewed HEP Side bilateral Resistance AROM> TB #1 light blue Reps/Minutes 10 reps each side (L TB, R AROM then TB) Comments occ cues with good recheck side alignment- R leg weaker Standing Exercises quad stretch Equipment Used chair Reps/Minutes 1x60 jered paloff press Side bilateral Resistance single green #3 Reps/Minutes 10 reps each side Comments cued squats Reps/Minutes 10 reps Comments arm across chest, good hip hinge to seat touch go Manual Therapy Treatment Soft Tissue Mobilization jered LE's Body Location quads, ITB, glut med Mobilization Type Myofascial Release,Strumming Body Position Hooklying Joint Mobilizations self mob hip Direction post, inf Body Position Supine Reps/Duration 10x Comments use of towel rol anterior hip R hip Joint inf glide with hip flex Grade III Body Position strap Reps/Duration 10x Comments good roxanne PT-OP-R Modalities Start: 05/29/24 16:33 Freq: Status: Active Protocol: Document 06/12/24 12:59 [facility] (Rec: 06/12/24 17:17 [facility] [id number]) Hot Pack/Cold Pack Treatment Cold Pack Location right ant hip Patient Position Hooklying Patient Tolerance Good PT-OP-T Assessment and Plan Start: 05/29/24 16:33 Freq: Status: Active Protocol: Document 06/12/24 12:59 [facility] (Rec: 06/12/24 13:51 [facility] [id number]) Physical Therapy Assessment Goals Three Impairment antalgic gait Tie Binder Goal (LTG) Patient will be able to ambulate on level surfaces and stairs without limp and with ability to alternate LE's on stairs LTG Duration 07/28/24 Four Impairment soft tissue tightness posterior left thigh, buttock Impairment Activities-specific balance confidence (ABC) Scale 24% Retirement Goal (LTG) Improve soft tissue mobility to WNL to promote full active use of left LE Two Impairment Lower extremity functional scale score 43/80, Oswestry 20 % Impairment Patient unable to go hiking safely Tie Binder Goal (LTG) Improve LEFS score to at least 70% as measure of improved low back and left LE function LTG Duration 07/28/24 One Impairment right posterior thigh, buttock , and LBP pain 4-8/10 Impairment Dynamic gait index 54% Tie Binder Goal (LTG) Decrease pain to no greater than 2/10 with all usual activities LTG Duration 07/28/24 Assessment Summary Assessment Hip flexor weakness and pain persists, improved tolerance for AAROM hip flexion with use of towel roll at anterior hip joint patient pulling at knee supine, also trial inf glide hip right with hip flex with good tolerance. Patient IR and ER greater on right side, needs strengtheing and stab. Physical Therapy Plan Frequency and Duration Frequency of Treatment 2x/Week Duration of treatment (weeks) 8 Plan of Care Start Date 05/30/24 Plan of Care End Date 08/03/24 Therapeutic Interventions Therapeutic Interventions Gait Training,Home Exercise Program,Manual Therapy, Neuromuscular Re-education, Patient/Caregiver Education, Self-Care/Home Management,Soft Tissue Mobilization,Taping, Therapeutic Activities, Therapeutic Exercises Modalities Cold Pack/Ice Massage,Electric Stimulation,Hot Packs, Infrared Therapy,Iontophoresis ,Ultrasound Next Visit Focus/Plan Next Note Type Treatment Note Next Visit Plan Assess response hip flexion use of towel roll and posterior glide provided by PT and quad/hip flexor stretch. Continue strengthening LE's closed and open chain as tolerated. Manual to right hip and thigh as indicated.
--- NOTE | 2024-06-18 16:00 | PT.OTN ---
Current Diagnoses Other chronic pain (06/18/24) Low back pain, unspecified (06/18/24) Strain of muscle, fascia and tendon of the posterior muscle group at thigh level, left thigh, initial encounter (06/18/24) Physical Therapy Treatment Note PT-OP-A Visit Information Start: 05/29/24 16:33 Freq: Status: Active Protocol: Document 06/18/24 14:33 [facility] (Rec: 06/18/24 15:17 [facility]AK [id number]) Out-Patient Physical Therapy Visit Information Visit Information Visit Type Treatment Note Visit Start Time 14:33 Visit Stop Time 15: Visit Number 5 Number of RISK ANALYST Visits 0 Precautions Precautions Medical History (Reviewed @ 10:50 by Phillip Ramos MD) Allergic rhinitis Bipolar 2 disorder Chronic low back pain Depression, major, recurrent Dystrophic nail Essential hypertension Gait instability History of colonic polyps Impaired fasting glucose Laryngospasm Mixed hyperlipidemia PERES (nonalcoholic steatohepatitis) Osteochondritis of tibial tuberosity Osteopenia Overweight Primary osteoarthritis involving multiple joints Restless leg syndrome Tinea unguium Urinary incontinence spinal fusion right LAMAR 2016 (lateral scar) PT-OP-B Current Condition Start: 05/29/24 16:33 Freq: Status: Active Protocol: Document 06/18/24 14:33 [facility] (Rec: 06/18/24 15:17 [facility]AK [id number]) Current Condition History of Current Condition Onset Date 05/04/24 Current Complaints left hip and LBP History of Current Condition GLF due to slick board, bruising left posterior thigh, states fell on left buttock and slid. Went to ER, diagnosed as strain. Iced first 24 hours, then started alternating ice and heat. Then Epsom salt baths thinks made swelling worse. Thinks swelling gone now. Pain persists and reports back pain has worsened (history of LBP with spinal fusion) Spinal fusion L45 October 2021, pain now occasional with bending over without correct body mechanics , has worsened since fall; more frequently. Most pain with sit to stand. Buttock pain constant. For exercises walks around town for errands, yesterday went back to rowing with a group but had buttock pain. Has an exercise machine dual reclined rower and reclined cycle. No new N/T, has chronic numbness left toes , a couple right toes. Prior Treatments and Tests spinal fusion 2022 no imaging after fall PT-OP-C Subjective Start: 05/29/24 16:33 Freq: Status: Active Protocol: Document 06/18/24 14:33 [facility] (Rec: 06/18/24 15:17 [facility] [id number]) OP-PT Subjective Patient Comments Patient Comments Has done exercises some, also took a walk over weekend. Had company so didn't do all exercises. Was able to sit on piano bench to play piano though more sore after; a few weeks ago couldn't even tolerate sitting on bench. Has been using heating pad. Hasn't rowed yet. Going to talk with doctor about anti- inflammatory. Tried using towel anterior R hip with knee to chest as instructed but didn't feel benefit. PT-OP-G Mobility & Gait Start: 05/29/24 16:33 Freq: Status: Active Protocol: Document 05/30/24 11:32 [facility]AK (Rec: 06/04/24 15:09 [facility] [id number]) OP Gait Assessment Gait Gait Assistance Required: Independent Assistive Devices Assistive Device None Gait Deviations General Gait Pattern Antalgic Stair Climbing Evaluation Technique/Endurance Stair Climbing Direction Ascend and Descend Stair Climbing Technique Step to Step PT-OP-H Neuro Start: 05/29/24 16:33 Freq: Status: Active Protocol: Document 05/30/24 11:32 [facility]AK (Rec: 06/04/24 15:09 [facility] [id number]) Sensation Evaluation Gross Sensation Gross Sensation WNL PT-OP-J Posture/Palpation/Skin Start: 05/29/24 16:33 Freq: Status: Active Protocol: Document 05/30/24 11:32 [facility] (Rec: 05/30/24 12:13 [facility] [id number]) Posture Evaluation Position Standing Head/C-Spine Posture Forward Head T-Spine Posture Increased Kyphosis L-Spine Posture Increased Lordosis Scapula Posture (L) Protracted,(R) Protracted Arm Posture (L) Internally Rotated Pelvis Posture Anteriorly Tilted Palpation Assessment Location right anterior thigh Palpation Findings Soft Tissue Tightness left buttock, hamstring Palpation Findings Soft Tissue Tightness, Tenderness l/s Palpation Findings Soft Tissue Tightness,Muscle Guarding Palpation Details right greater than left Skin Assessment Edema Assessment LEs Comments no significant edema noted Other Assessments Skin Assessment Comments no bruising PT-OP-K Range of Motion Start: 05/29/24 16:33 Freq: Status: Active Protocol: Document 05/30/24 11:32 [facility]AK (Rec: 06/04/24 15:09 [facility] [id number]) Lumbar Spine Range of Motion Lumbar Spine Active Flexion 45 Extension 10 Rotation Left 15 Rotation Right 15 Lateral Flexion Left 20 Lateral Flexion Right 20 ROM Limitations Soft Tissue Tightness,Pain Hip Goniometric Range of Motion Hip Left Flexion w/Knee Flexed 95 Straight Leg Raise 65 Extension 5 Abduction 25 Internal Rotation 15 External Rotation 60 Right Hip ROM WFL Yes Hip ROM Limitations Hip ROM Limitations Soft Tissue Tightness,Pain Knee Goniometric Range of Motion Knee jered Knee ROM WFL Yes PT-OP-M Strength Start: 05/29/24 16:33 Freq: Status: Active Protocol: Document 05/30/24 11:32 [facility] (Rec: 05/30/24 12:13 [facility] [id number]) Trunk Strength Trunk Manual Muscle Testing Flexion 3+ Fair+ Extension 3- Fair- Hip Strength Hip Manual Muscle Testing Left Flexion (L2) 4- Good- Extension (S1) 3+ Fair+ Abduction 4 Good Adduction 4- Good- External Rotation 4- Good- Internal Rotation 4 Good Right Flexion (L2) 4- Good- Extension (S1) 3+ Fair+ Abduction 4 Good Adduction 4- Good- External Rotation 4- Good- Internal Rotation 4 Good Knee Strength Knee Manual Muscle Testing Left Flexion (S2) 3+ Fair+ Extension (L3) 4- Good- Comments pain with resisted flexion Right Flexion (S2) 5 Normal Extension (L3) 4- Good- Ankle/Foot Strength Ankle and Foot Manual Muscle Testing Left Dorsiflexion (L4) 4+ Good+ Plantarflexion (S1) 3+ Fair+ Right Dorsiflexion (L4) 4- Good- Plantarflexion (S1) 3+ Fair+ PT-OP-Q Treatments Start: 05/29/24 16:33 Freq: Status: Active Protocol: Document 06/18/24 14:33 [facility] (Rec: 06/18/24 15:17 [facility] [id number]) Cardio Equipment Recumbent Stepper (Sci-Fit) Duration (Minutes) 10 Resistance 4.5 Seat Position 7 Other BUE &LEs 7 min, LE's only 4 min, 1.33 mi Gym Equipment Cable Column (Body Solid) hamstring curl Details jered and unil Resistance 30, 20 Reps/Time 10x2 Shuttle Recovery Unilateral Squats Resistance 37# Shuttle Recovery Platform Stable Reps/Time 15x2 Therapeutic Exercises Supine Exercises bridge Supine Exercise Name segmental jered, uni Reps/Minutes 5 SH x10 Comments cues for pain-free ROM Standing Exercises resisted walking Standing Exercise Name side Resistance L2 TB paloff press Side bilateral Resistance double green #3 Reps/Minutes 10 reps each side Comments cued squats Reps/Minutes 10 reps Comments arm across chest, good hip hinge to seat touch go Manual Therapy Treatment Soft Tissue Mobilization jered LE's Body Location quads, ITB, glut med, HS Mobilization Type Myofascial Release,Strumming Body Position Hooklying Comments multiple areas of tightnes especially right proximal/ lateral quad, IT bands jered, glut med R, left HS PT-OP-R Modalities Start: 05/29/24 16:33 Freq: Status: Active Protocol: Document 06/18/24 14:33 [facility] (Rec: 06/19/24 15:59 [facility]AK [id number]) Hot Pack/Cold Pack Treatment Hot Pack Location right quads and ITB, left HS and ITB Patient Position Hooklying Patient Tolerance Good PT-OP-T Assessment and Plan Start: 05/29/24 16:33 Freq: Status: Active Protocol: Document 06/18/24 14:33 [facility] (Rec: 06/18/24 15:17 [facility] [id number]) Physical Therapy Assessment Goals Three Impairment antalgic gait Usp Goal (LTG) Patient will be able to ambulate on level surfaces and stairs without limp and with ability to alternate LE's on stairs LTG Duration 07/28/24 Four Impairment soft tissue tightness posterior left thigh, buttock Impairment Activities-specific balance confidence (ABC) Scale 24% Rag Cutting Machine Operator Goal (LTG) Improve soft tissue mobility to WNL to promote full active use of left LE Two Impairment Lower extremity functional scale score 43/80, Oswestry 20 % Impairment Patient unable to go hiking safely Usp Goal (LTG) Improve LEFS score to at least 70% as measure of improved low back and left LE function LTG Duration 07/28/24 One Impairment right posterior thigh, buttock , and LBP pain 4-8/10 Impairment Dynamic gait index 54% Usp Goal (LTG) Decrease pain to no greater than 2/10 with all usual activities LTG Duration 07/28/24 Assessment Summary Assessment Patient is reporting decrease in pain overall, fair compliance to HEP. Increased manual treatment today with patient instructed to bring shorts next session to allow more easy access to soft tissues of hips and thighs. Physical Therapy Plan Frequency and Duration Frequency of Treatment 2x/Week Duration of treatment (weeks) 8 Plan of Care Start Date 05/30/24 Plan of Care End Date 08/03/24 Therapeutic Interventions Therapeutic Interventions Gait Training,Home Exercise Program,Manual Therapy, Neuromuscular Re-education, Patient/Caregiver Education, Self-Care/Home Management,Soft Tissue Mobilization,Taping, Therapeutic Activities, Therapeutic Exercises Modalities Cold Pack/Ice Massage,Electric Stimulation,Hot Packs, Infrared Therapy,Iontophoresis ,Ultrasound Next Visit Focus/Plan Next Note Type Treatment Note Next Visit Plan manual to quads, glutes, HS, IT bands jered, continue strengthing and gentle flexibilty bilateral hips.
--- NOTE | 2024-06-20 13:50 | PT.OTN ---
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 Precautions Precautions Medical History (Reviewed @ 10:50 by Phillip Ramos MD) Allergic rhinitis Bipolar 2 disorder Chronic low back pain Depression, major, recurrent Dystrophic nail Essential hypertension Gait instability History of colonic polyps Impaired fasting glucose Laryngospasm Mixed hyperlipidemia PERES (nonalcoholic steatohepatitis) Osteochondritis of tibial tuberosity Osteopenia Overweight Primary osteoarthritis involving multiple joints Restless leg syndrome Tinea unguium Urinary incontinence spinal fusion right LAMAR 2016 (lateral scar) PT-OP-B Current Condition Start: 05/29/24 16:33 Freq: Status: Active Protocol: Document 06/18/24 14:33 SAK (Rec: 06/18/24 15:17 SAK [id number]) Current Condition History of Current Condition Onset Date 05/04/24 Current Complaints left hip and LBP History of Current Condition GLF due to slick board, bruising left posterior thigh, states fell on left buttock and slid. Went to ER, diagnosed as strain. Iced first 24 hours, then started alternating ice and heat. Then Epsom salt baths thinks made swelling worse. Thinks swelling gone now. Pain persists and reports back pain has worsened (history of LBP with spinal fusion) Spinal fusion L45 October 2021, pain now occasional with bending over without correct body mechanics , has worsened since fall; more frequently. Most pain with sit to stand. Buttock pain constant. For exercises walks around town for errands, yesterday went back to rowing with a group but had buttock pain. Has an exercise machine dual reclined rower and reclined cycle. No new N/T, has chronic numbness left toes , a couple right toes. Prior Treatments and Tests spinal fusion 2022 no imaging after fall PT-OP-C Subjective Start: 05/29/24 16:33 Freq: Status: Active Protocol: Document 06/20/24 13:05 SP (Rec: 06/20/24 14:13 SP [id number]) OP-PT Subjective Patient Comments Patient Comments Pt reports felt ok after last tx, nothing new to reports. She felt ok sitting on piano bench playing about 30 min. She was compliant with supine HEp and resisted press outs since last tx and used the rolling pin gently. PT-OP-G Mobility & Gait Start: 05/29/24 16:33 Freq: Status: Active Protocol: Document 05/30/24 11:32 SAK (Rec: 06/04/24 15:09 SAK [id number]) OP Gait Assessment Gait Gait Assistance Required: Independent Assistive Devices Assistive Device None Gait Deviations General Gait Pattern Antalgic Stair Climbing Evaluation Technique/Endurance Stair Climbing Direction Ascend and Descend Stair Climbing Technique Step to Step PT-OP-H Neuro Start: 05/29/24 16:33 Freq: Status: Active Protocol: Document 05/30/24 11:32 SAK (Rec: 06/04/24 15:09 SAK [id number]) Sensation Evaluation Gross Sensation Gross Sensation WNL PT-OP-J Posture/Palpation/Skin Start: 05/29/24 16:33 Freq: Status: Active Protocol: Document 05/30/24 11:32 SAK (Rec: 05/30/24 12:13 SAK [id number]) Posture Evaluation Position Standing Head/C-Spine Posture Forward Head T-Spine Posture Increased Kyphosis L-Spine Posture Increased Lordosis Scapula Posture (L) Protracted,(R) Protracted Arm Posture (L) Internally Rotated Pelvis Posture Anteriorly Tilted Palpation Assessment Location right anterior thigh Palpation Findings Soft Tissue Tightness left buttock, hamstring Palpation Findings Soft Tissue Tightness, Tenderness l/s Palpation Findings Soft Tissue Tightness,Muscle Guarding Palpation Details right greater than left Skin Assessment Edema Assessment LEs Comments no significant edema noted Other Assessments Skin Assessment Comments no bruising PT-OP-K Range of Motion Start: 05/29/24 16:33 Freq: Status: Active Protocol: Document 05/30/24 11:32 SAK (Rec: 06/04/24 15:09 SAK [id number]) Lumbar Spine Range of Motion Lumbar Spine Active Flexion 45 Extension 10 Rotation Left 15 Rotation Right 15 Lateral Flexion Left 20 Lateral Flexion Right 20 ROM Limitations Soft Tissue Tightness,Pain Hip Goniometric Range of Motion Hip Left Flexion w/Knee Flexed 95 Straight Leg Raise 65 Extension 5 Abduction 25 Internal Rotation 15 External Rotation 60 Right Hip ROM WFL Yes Hip ROM Limitations Hip ROM Limitations Soft Tissue Tightness,Pain Knee Goniometric Range of Motion Knee jered Knee ROM WFL Yes PT-OP-M Strength Start: 05/29/24 16:33 Freq: Status: Active Protocol: Document 05/30/24 11:32 SAK (Rec: 05/30/24 12:13 [facility] [id number]) Trunk Strength Trunk Manual Muscle Testing Flexion 3+ Fair+ Extension 3- Fair- Hip Strength Hip Manual Muscle Testing Left Flexion (L2) 4- Good- Extension (S1) 3+ Fair+ Abduction 4 Good Adduction 4- Good- External Rotation 4- Good- Internal Rotation 4 Good Right Flexion (L2) 4- Good- Extension (S1) 3+ Fair+ Abduction 4 Good Adduction 4- Good- External Rotation 4- Good- Internal Rotation 4 Good Knee Strength Knee Manual Muscle Testing Left Flexion (S2) 3+ Fair+ Extension (L3) 4- Good- Comments pain with resisted flexion Right Flexion (S2) 5 Normal Extension (L3) 4- Good- Ankle/Foot Strength Ankle and Foot Manual Muscle Testing Left Dorsiflexion (L4) 4+ Good+ Plantarflexion (S1) 3+ Fair+ Right Dorsiflexion (L4) 4- Good- Plantarflexion (S1) 3+ Fair+ PT-OP-Q Treatments Start: 05/29/24 16:33 Freq: Status: Active Protocol: Document 06/20/24 13:05 SP (Rec: 06/20/24 14:13 SP [id number]) Cardio Equipment Recumbent Stepper (Sci-Fit) Duration (Minutes) 10 Resistance 4.5 Seat Position 7 Other BUE &LEs 7 min, LE's only 4 min, 1.33 mi Therapeutic Exercises Supine Exercises HS stretch Supine Exercise Name added to HEP /c hand written HO Side right Equipment Used use strap or towel behind thigh Reps/Minutes 30 SH x2 Comments cued lower leg lift toward ceiling Prone Exercises quad Prone Exercise Name trialed in PT Side right Equipment Used strap on foot Comments quad stretch- good Standing Exercises hip abduction Standing Exercise Name trialed in PT- hold little to uncomfortable WB R hip during LLE Side bilateral Resistance Tb #1 around ankles Reps/Minutes x10 Comments cued foot drive glut & hip abd engagement on R during LLE mobility HS curl Standing Exercise Name added to HEP /c HO hand written Side bilateral Resistance Tb #1 anchored under foot while other behind ankle Reps/Minutes x10 Comments Cued slow pacing, small range cued foot drive glut & hip abd engagement resisted walking Standing Exercise Name side- HEP reviewed Resistance L2 TB at shins Reps/Minutes 10 ft x1 lap quad stretch Equipment Used chair Reps/Minutes 1x60 jered paloff press Side bilateral Resistance double green #3 Reps/Minutes 10 reps each side Comments cued squats Standing Exercise Name STS Equipment Used from chair Reps/Minutes 10 reps Comments arm across chest, good hip hinge to seat touch go Other Exercises self STMs Other Exercise Name 1. hip abd/glut standing 2. seated HS relax over ball vs LAQ MWM Side right Equipment Used small kick ball > racquetball Comments R posterolateral hip ball wall , seated prox HS Manual Therapy Treatment Consent Patient gave verbal consent for manual Yes treatment Soft Tissue Mobilization jered LE's Body Location R TFL, prox quad Mobilization Type Myofascial Release,Strumming, Sustained Pressure,Other Body Position Hooklying Comments rolling over TFL, then sustained pressure prox quad and TFL long axis femur ER/IR Good feedback response, ed can use ball wall over lat quat and TFL. PT-OP-R Modalities Start: 05/29/24 16:33 Freq: Status: Active Protocol: Document 06/18/24 14:33 SAK (Rec: 06/19/24 15:59 SAK [id number]) Hot Pack/Cold Pack Treatment Hot Pack Location right quads and ITB, left HS and ITB Patient Position Hooklying Patient Tolerance Good PT-OP-T Assessment and Plan Start: 05/29/24 16:33 Freq: Status: Active Protocol: Document 06/20/24 13:05 SP (Rec: 06/20/24 14:13 SP [id number]) Physical Therapy Assessment Goals Three Impairment antalgic gait Prison Goal (LTG) Patient will be able to ambulate on level surfaces and stairs without limp and with ability to alternate LE's on stairs LTG Duration 07/28/24 Four Impairment soft tissue tightness posterior left thigh, buttock Impairment Activities-specific balance confidence (ABC) Scale 24% Prison Goal (LTG) Improve soft tissue mobility to WNL to promote full active use of left LE Two Impairment Lower extremity functional scale score 43/80, Oswestry 20 % Impairment Patient unable to go hiking safely Prison Goal (LTG) Improve LEFS score to at least 70% as measure of improved low back and left LE function LTG Duration 07/28/24 One Impairment right posterior thigh, buttock , and LBP pain 4-8/10 Impairment Dynamic gait index 54% Cloud Systems Administrator Goal (LTG) Decrease pain to no greater than 2/10 with all usual activities LTG Duration 07/28/24 Assessment Summary Assessment Pt improved decrease R hip posterolateral tension post manual with ed instruction self STMs balll vs prox HS over ball and instruction self stretching regime HS, quad carry over home. I feel alot looser compared to when arrived. Physical Therapy Plan Frequency and Duration Frequency of Treatment 2x/Week Duration of treatment (weeks) 8 Plan of Care Start Date 05/30/24 Plan of Care End Date 08/03/24 Therapeutic Interventions Therapeutic Interventions Gait Training,Home Exercise Program,Manual Therapy, Neuromuscular Re-education, Patient/Caregiver Education, Self-Care/Home Management,Soft Tissue Mobilization,Taping, Therapeutic Activities, Therapeutic Exercises Modalities Cold Pack/Ice Massage,Electric Stimulation,Hot Packs, Infrared Therapy,Iontophoresis ,Ultrasound Next Visit Focus/Plan Next Note Type Treatment Note Next Visit Plan REcheck stretching and standing resisted HS curl. POC: manual to quads, glutes, HS, IT bands jered, continue strengthing and gentle flexibilty bilateral hips.
--- NOTE | 2024-06-25 09:40 | PT.OTN ---
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 Precautions Precautions Medical History (Reviewed @ 10:50 by Phillip Ramos MD) Allergic rhinitis Bipolar 2 disorder Chronic low back pain Depression, major, recurrent Dystrophic nail Essential hypertension Gait instability History of colonic polyps Impaired fasting glucose Laryngospasm Mixed hyperlipidemia PERES (nonalcoholic steatohepatitis) Osteochondritis of tibial tuberosity Osteopenia Overweight Primary osteoarthritis involving multiple joints Restless leg syndrome Tinea unguium Urinary incontinence spinal fusion right LAMAR 2016 (lateral scar) PT-OP-B Current Condition Start: 05/29/24 16:33 Freq: Status: Active Protocol: Document 06/25/24 09:00 [facility] (Rec: 06/25/24 09:39 [facility] [id number]) Current Condition History of Current Condition Onset Date 05/04/24 Current Complaints left hip and LBP History of Current Condition GLF due to slick board, bruising left posterior thigh, states fell on left buttock and slid. Went to ER, diagnosed as strain. Iced first 24 hours, then started alternating ice and heat. Then Epsom salt baths thinks made swelling worse. Thinks swelling gone now. Pain persists and reports back pain has worsened (history of LBP with spinal fusion) Spinal fusion L45 October 2021, pain now occasional with bending over without correct body mechanics , has worsened since fall; more frequently. Most pain with sit to stand. Buttock pain constant. For exercises walks around town for errands, yesterday went back to rowing with a group but had buttock pain. Has an exercise machine dual reclined rower and reclined cycle. No new N/T, has chronic numbness left toes , a couple right toes. Prior Treatments and Tests spinal fusion 2022 no imaging after fall PT-OP-C Subjective Start: 05/29/24 16:33 Freq: Status: Active Protocol: Document 06/25/24 09:00 [facility] (Rec: 06/25/24 09:39 [facility] [id number]) OP-PT Subjective Patient Comments Patient Comments In laundry room, uncovered rat in small room, jumped out of room to get door closed, hurt hamstring, was on ice the rest of the day. States doesn't take much for her back to be irritated. States couldn't get out of recliner that required her to bend knees to close. Went to [employer] yesterday and did ok sitting and getting up and down. After sitting for awhile reports right quad tightens up, especially in the car PT-OP-G Mobility & Gait Start: 05/29/24 16:33 Freq: Status: Active Protocol: Document 05/30/24 11:32 [facility] (Rec: 06/04/24 15:09 [facility] [id number]) OP Gait Assessment Gait Gait Assistance Required: Independent Assistive Devices Assistive Device None Gait Deviations General Gait Pattern Antalgic Stair Climbing Evaluation Technique/Endurance Stair Climbing Direction Ascend and Descend Stair Climbing Technique Step to Step PT-OP-H Neuro Start: 05/29/24 16:33 Freq: Status: Active Protocol: Document 05/30/24 11:32 [facility] (Rec: 06/04/24 15:09 [facility] [id number]) Sensation Evaluation Gross Sensation Gross Sensation WNL PT-OP-J Posture/Palpation/Skin Start: 05/29/24 16:33 Freq: Status: Active Protocol: Document 05/30/24 11:32 [facility] (Rec: 05/30/24 12:13 [facility] [id number]) Posture Evaluation Position Standing Head/C-Spine Posture Forward Head T-Spine Posture Increased Kyphosis L-Spine Posture Increased Lordosis Scapula Posture (L) Protracted,(R) Protracted Arm Posture (L) Internally Rotated Pelvis Posture Anteriorly Tilted Palpation Assessment Location right anterior thigh Palpation Findings Soft Tissue Tightness left buttock, hamstring Palpation Findings Soft Tissue Tightness, Tenderness l/s Palpation Findings Soft Tissue Tightness,Muscle Guarding Palpation Details right greater than left Skin Assessment Edema Assessment LEs Comments no significant edema noted Other Assessments Skin Assessment Comments no bruising PT-OP-K Range of Motion Start: 05/29/24 16:33 Freq: Status: Active Protocol: Document 05/30/24 11:32 [facility] (Rec: 06/04/24 15:09 [facility] [id number]) Lumbar Spine Range of Motion Lumbar Spine Active Flexion 45 Extension 10 Rotation Left 15 Rotation Right 15 Lateral Flexion Left 20 Lateral Flexion Right 20 ROM Limitations Soft Tissue Tightness,Pain Hip Goniometric Range of Motion Hip Left Flexion w/Knee Flexed 95 Straight Leg Raise 65 Extension 5 Abduction 25 Internal Rotation 15 External Rotation 60 Right Hip ROM WFL Yes Hip ROM Limitations Hip ROM Limitations Soft Tissue Tightness,Pain Knee Goniometric Range of Motion Knee jered Knee ROM WFL Yes PT-OP-M Strength Start: 05/29/24 16:33 Freq: Status: Active Protocol: Document 05/30/24 11:32 [facility] (Rec: 05/30/24 12:13 [facility] [id number]) Trunk Strength Trunk Manual Muscle Testing Flexion 3+ Fair+ Extension 3- Fair- Hip Strength Hip Manual Muscle Testing Left Flexion (L2) 4- Good- Extension (S1) 3+ Fair+ Abduction 4 Good Adduction 4- Good- External Rotation 4- Good- Internal Rotation 4 Good Right Flexion (L2) 4- Good- Extension (S1) 3+ Fair+ Abduction 4 Good Adduction 4- Good- External Rotation 4- Good- Internal Rotation 4 Good Knee Strength Knee Manual Muscle Testing Left Flexion (S2) 3+ Fair+ Extension (L3) 4- Good- Comments pain with resisted flexion Right Flexion (S2) 5 Normal Extension (L3) 4- Good- Ankle/Foot Strength Ankle and Foot Manual Muscle Testing Left Dorsiflexion (L4) 4+ Good+ Plantarflexion (S1) 3+ Fair+ Right Dorsiflexion (L4) 4- Good- Plantarflexion (S1) 3+ Fair+ PT-OP-Q Treatments Start: 05/29/24 16:33 Freq: Status: Active Protocol: Document 06/25/24 09:00 [facility] (Rec: 06/25/24 09:39 [facility] [id number]) Cardio Equipment Recumbent Stepper (Sci-Fit) Duration (Minutes) 10 Resistance 4.5 Seat Position 7 Other BUE &LEs entire 10min, 1.35 mi Therapeutic Exercises Supine Exercises bent knee march Reps/Minutes 10x Comments cues for core activation glut set Reps/Minutes 10x5 Comments legs straight, HS stretch Supine Exercise Name held today supine clam Resistance L2 at thighs Reps/Minutes 10x5 Comments good form, little discomfort posterolateral L femur ball squeeze Equipment Used green ball Reps/Minutes 10x10 Comments cues for core activation prior Prone Exercises quad Side right Equipment Used strap on foot Comments quad stretch- good Therapeutic Activity Therapeutic Activity car transfers, sit to stand Reps/Minutes 10x Comments cues for sit and pivot into car, pivot and stand out. Sit to stand with hands stacked at abdomen don't letg hands come apart or compress Manual Therapy Treatment Soft Tissue Mobilization jered LE's Body Location R TFL, prox quad Mobilization Type Myofascial Release,Strumming, Sustained Pressure,Other Body Position Hooklying Comments rolling over TFL, then sustained pressure prox quad and TFL long axis femur ER/IR Good feedback response, ed can use ball wall over lat quat and TFL. PT-OP-R Modalities Start: 05/29/24 16:33 Freq: Status: Active Protocol: Document 06/25/24 09:00 [facility] (Rec: 06/25/24 09:40 [facility] [id number]) Hot Pack/Cold Pack Treatment Cold Pack Location right ant hip, HS Patient Position Hooklying Patient Tolerance Good PT-OP-T Assessment and Plan Start: 05/29/24 16:33 Freq: Status: Active Protocol: Document 06/25/24 09:00 [facility] (Rec: 06/25/24 09:39 [facility] [id number]) Physical Therapy Assessment Goals Three Impairment antalgic gait Stonecutter Goal (LTG) Patient will be able to ambulate on level surfaces and stairs without limp and with ability to alternate LE's on stairs LTG Duration 07/28/24 Four Impairment soft tissue tightness posterior left thigh, buttock Impairment Activities-specific balance confidence (ABC) Scale 24% Stonecutter Goal (LTG) Improve soft tissue mobility to WNL to promote full active use of left LE Two Impairment Lower extremity functional scale score 43/80, Oswestry 20 % Impairment Patient unable to go hiking safely Long-Term Goal (LTG) Improve LEFS score to at least 70% as measure of improved low back and left LE function LTG Duration 07/28/24 One Impairment right posterior thigh, buttock , and LBP pain 4-8/10 Impairment Dynamic gait index 54% Long-Term Goal (LTG) Decrease pain to no greater than 2/10 with all usual activities LTG Duration 07/28/24 Assessment Summary Assessment Increased emphasis core stab as well as review safe techniques in and out of chair and car. Patient demonstrated good understanding. Held HS stretch today due to injury over weekend, tender. Physical Therapy Plan Frequency and Duration Frequency of Treatment 2x/Week Duration of treatment (weeks) 8 Plan of Care Start Date 05/30/24 Plan of Care End Date 08/03/24 Therapeutic Interventions Therapeutic Interventions Gait Training,Home Exercise Program,Manual Therapy, Neuromuscular Re-education, Patient/Caregiver Education, Self-Care/Home Management,Soft Tissue Mobilization,Taping, Therapeutic Activities, Therapeutic Exercises Modalities Cold Pack/Ice Massage,Electric Stimulation,Hot Packs, Infrared Therapy,Iontophoresis ,Ultrasound Next Visit Focus/Plan Next Note Type Treatment Note Next Visit Plan resume HS ex as tolerated, continue emphasis on core stab , progression of strengthening and flexibility
--- NOTE | 2024-06-27 09:03 | PT.OTN ---
Current Diagnoses Other chronic pain (06/27/24) Low back pain, unspecified (06/27/24) Strain of muscle, fascia and tendon of the posterior muscle group at thigh level, left thigh, initial encounter (06/27/24) Physical Therapy Treatment Note PT-OP-A Visit Information Start: 05/29/24 16:33 Freq: Status: Active Protocol: Document 06/27/24 08:16 SAK (Rec: 06/27/24 09:02 SAK [id number]) Out-Patient Physical Therapy Visit Information Visit Information Visit Type Treatment Note Visit Start Time 08:17 Visit Number 8 Number of AIRWAYS OPERATIONS SPECIALIST Visits 0 Precautions Precautions Medical History (Reviewed @ 10:50 by Phillip Ramos MD) Allergic rhinitis Bipolar 2 disorder Chronic low back pain Depression, major, recurrent Dystrophic nail Essential hypertension Gait instability History of colonic polyps Impaired fasting glucose Laryngospasm Mixed hyperlipidemia PERES (nonalcoholic steatohepatitis) Osteochondritis of tibial tuberosity Osteopenia Overweight Primary osteoarthritis involving multiple joints Restless leg syndrome Tinea unguium Urinary incontinence spinal fusion right LAMAR 2016 (lateral scar) PT-OP-B Current Condition Start: 05/29/24 16:33 Freq: Status: Active Protocol: Document 06/27/24 08:16 SAK (Rec: 06/27/24 09:02 SAK [id number]) Current Condition History of Current Condition Onset Date 05/04/24 Current Complaints left hip and LBP History of Current Condition GLF due to slick board, bruising left posterior thigh, states fell on left buttock and slid. Went to ER, diagnosed as strain. Iced first 24 hours, then started alternating ice and heat. Then Epsom salt baths thinks made swelling worse. Thinks swelling gone now. Pain persists and reports back pain has worsened (history of LBP with spinal fusion) Spinal fusion L45 October 2021, pain now occasional with bending over without correct body mechanics , has worsened since fall; more frequently. Most pain with sit to stand. Buttock pain constant. For exercises walks around town for errands, yesterday went back to rowing with a group but had buttock pain. Has an exercise machine dual reclined rower and reclined cycle. No new N/T, has chronic numbness left toes , a couple right toes. Prior Treatments and Tests spinal fusion 2021 no imaging after fall PT-OP-C Subjective Start: 05/29/24 16:33 Freq: Status: Active Protocol: Document 06/27/24 08:16 SAK (Rec: 06/27/24 09:02 [facility] [id number]) OP-PT Subjective Patient Comments Patient Comments HS about the same as last time , can walk ok. Some pain with sitting. Went to GP yesterday , had x-rays of spine, MRI being set up for gall bladder. PT-OP-G Mobility & Gait Start: 05/29/24 16:33 Freq: Status: Active Protocol: Document 05/30/24 11:32 SAK (Rec: 06/04/24 15:09 [facility] [id number]) OP Gait Assessment Gait Gait Assistance Required: Independent Assistive Devices Assistive Device None Gait Deviations General Gait Pattern Antalgic Stair Climbing Evaluation Technique/Endurance Stair Climbing Direction Ascend and Descend Stair Climbing Technique Step to Step PT-OP-H Neuro Start: 05/29/24 16:33 Freq: Status: Active Protocol: Document 05/30/24 11:32 [facility] (Rec: 06/04/24 15:09 [facility] [id number]) Sensation Evaluation Gross Sensation Gross Sensation WNL PT-OP-J Posture/Palpation/Skin Start: 05/29/24 16:33 Freq: Status: Active Protocol: Document 05/30/24 11:32 [facility] (Rec: 05/30/24 12:13 [facility] [id number]) Posture Evaluation Position Standing Head/C-Spine Posture Forward Head T-Spine Posture Increased Kyphosis L-Spine Posture Increased Lordosis Scapula Posture (L) Protracted,(R) Protracted Arm Posture (L) Internally Rotated Pelvis Posture Anteriorly Tilted Palpation Assessment Location right anterior thigh Palpation Findings Soft Tissue Tightness left buttock, hamstring Palpation Findings Soft Tissue Tightness, Tenderness l/s Palpation Findings Soft Tissue Tightness,Muscle Guarding Palpation Details right greater than left Skin Assessment Edema Assessment LEs Comments no significant edema noted Other Assessments Skin Assessment Comments no bruising PT-OP-K Range of Motion Start: 05/29/24 16:33 Freq: Status: Active Protocol: Document 05/30/24 11:32 SAK (Rec: 06/04/24 15:09 [facility] [id number]) Lumbar Spine Range of Motion Lumbar Spine Active Flexion 45 Extension 10 Rotation Left 15 Rotation Right 15 Lateral Flexion Left 20 Lateral Flexion Right 20 ROM Limitations Soft Tissue Tightness,Pain Hip Goniometric Range of Motion Hip Left Flexion w/Knee Flexed 95 Straight Leg Raise 65 Extension 5 Abduction 25 Internal Rotation 15 External Rotation 60 Right Hip ROM WFL Yes Hip ROM Limitations Hip ROM Limitations Soft Tissue Tightness,Pain Knee Goniometric Range of Motion Knee jered Knee ROM WFL Yes PT-OP-M Strength Start: 05/29/24 16:33 Freq: Status: Active Protocol: Document 05/30/24 11:32 [facility] (Rec: 05/30/24 12:13 [facility] [id number]) Trunk Strength Trunk Manual Muscle Testing Flexion 3+ Fair+ Extension 3- Fair- Hip Strength Hip Manual Muscle Testing Left Flexion (L2) 4- Good- Extension (S1) 3+ Fair+ Abduction 4 Good Adduction 4- Good- External Rotation 4- Good- Internal Rotation 4 Good Right Flexion (L2) 4- Good- Extension (S1) 3+ Fair+ Abduction 4 Good Adduction 4- Good- External Rotation 4- Good- Internal Rotation 4 Good Knee Strength Knee Manual Muscle Testing Left Flexion (S2) 3+ Fair+ Extension (L3) 4- Good- Comments pain with resisted flexion Right Flexion (S2) 5 Normal Extension (L3) 4- Good- Ankle/Foot Strength Ankle and Foot Manual Muscle Testing Left Dorsiflexion (L4) 4+ Good+ Plantarflexion (S1) 3+ Fair+ Right Dorsiflexion (L4) 4- Good- Plantarflexion (S1) 3+ Fair+ PT-OP-Q Treatments Start: 05/29/24 16:33 Freq: Status: Active Protocol: Document 06/27/24 08:16 [facility] (Rec: 06/27/24 09:02 [facility] [id number]) Cardio Equipment Recumbent Stepper (Sci-Fit) Duration (Minutes) 10 Resistance 2-5 Seat Position 7 Other cues for push through heels, BUE &LEs entire 10min, 1.35 mi Therapeutic Exercises Prone Exercises quad Side right Equipment Used strap on foot Comments quad stretch- good Standing Exercises SLS Equipment Used mirror Reps/Minutes 5x Comments cues for core and glute activation, level pelvis march Equipment Used mirror Reps/Minutes 4x Comments cues for core activation quad stretch Equipment Used chair Reps/Minutes 1x60 jered paloff press Side bilateral Resistance double green #3 Reps/Minutes 10 reps each side Comments cuedneutral posture, core activation Gait Training Gait Activity stairs Device Used jered rails CGA Surface 4 stairs(6) x 2 Treatment Focus glut activation, no twisting of pelvis Comments cued slow control Manual Therapy Treatment Soft Tissue Mobilization jered LE's Body Location R TFL, prox quad Mobilization Type Myofascial Release,Strumming, Sustained Pressure,Other Body Position Hooklying Comments rolling over TFL, then sustained pressure prox quad and TFL long axis femur ER/IR Good feedback response, ed can use ball wall over lat quat and TFL. Other Other Manual Treatments shotgun technique for pelvic realignment Self-Care/Home Management Treatment Education Other Education added multiposition supine clam with L5 TB followed by ball squeeze to simulate shotgun pelvic realignment technique add SLS and stair work for HEP PT-OP-R Modalities Start: 05/29/24 16:33 Freq: Status: Active Protocol: Document 06/27/24 08:16 [facility] (Rec: 06/27/24 09:02 [facility] [id number]) Hot Pack/Cold Pack Treatment Cold Pack Location right ant hip, HS Patient Position Hooklying Patient Tolerance Good PT-OP-T Assessment and Plan Start: 05/29/24 16:33 Freq: Status: Active Protocol: Document 06/27/24 08:16 [facility] (Rec: 06/27/24 09:02 [facility] [id number]) Physical Therapy Assessment Goals Three Impairment antalgic gait Plant And Equipment Worker Goal (LTG) Patient will be able to ambulate on level surfaces and stairs without limp and with ability to alternate LE's on stairs LTG Duration 07/28/24 Four Impairment soft tissue tightness posterior left thigh, buttock Impairment Activities-specific balance confidence (ABC) Scale 24% Plant And Equipment Worker Goal (LTG) Improve soft tissue mobility to WNL to promote full active use of left LE Two Impairment Lower extremity functional scale score 43/80, Oswestry 20 % Impairment Patient unable to go hiking safely Plant And Equipment Worker Goal (LTG) Improve LEFS score to at least 70% as measure of improved low back and left LE function LTG Duration 07/28/24 One Impairment right posterior thigh, buttock , and LBP pain 4-8/10 Impairment Dynamic gait index 54% Penitentiary Goal (LTG) Decrease pain to no greater than 2/10 with all usual activities LTG Duration 07/28/24 Assessment Summary Assessment Assess response to last session, continue core and LE strengthening, core stabilization and functional closed chain strengthening. Physical Therapy Plan Frequency and Duration Frequency of Treatment 2x/Week Duration of treatment (weeks) 8 Plan of Care Start Date 05/30/24 Plan of Care End Date 08/03/24 Therapeutic Interventions Therapeutic Interventions Gait Training,Home Exercise Program,Manual Therapy, Neuromuscular Re-education, Patient/Caregiver Education, Self-Care/Home Management,Soft Tissue Mobilization,Taping, Therapeutic Activities, Therapeutic Exercises Modalities Cold Pack/Ice Massage,Electric Stimulation,Hot Packs, Infrared Therapy,Iontophoresis ,Ultrasound Next Visit Focus/Plan Next Note Type Treatment Note Next Visit Plan resume HS ex as tolerated, continue emphasis on core stab , progression of strengthening and flexibility
--- NOTE | 2024-06-27 16:24 | PT.OTN ---
Current Diagnoses Other chronic pain (06/27/24) Low back pain, unspecified (06/27/24) Strain of muscle, fascia and tendon of the posterior muscle group at thigh level, left thigh, initial encounter (06/27/24) Physical Therapy Treatment Note PT-OP-A Visit Information Start: 05/29/24 16:33 Freq: Status: Active Protocol: Document 06/27/24 08:16 SAK (Rec: 06/27/24 09:02 SAK [id number]) Out-Patient Physical Therapy Visit Information Visit Information Visit Type Treatment Note Visit Start Time 08:17 Visit Number 8 Number of EXHAUST EMISSIONS AUTOMOTIVE TECHNICIAN Visits 0 Precautions Precautions Medical History (Reviewed @ 10:50 by Phillip Ramos MD) Allergic rhinitis Bipolar 2 disorder Chronic low back pain Depression, major, recurrent Dystrophic nail Essential hypertension Gait instability History of colonic polyps Impaired fasting glucose Laryngospasm Mixed hyperlipidemia PERES (nonalcoholic steatohepatitis) Osteochondritis of tibial tuberosity Osteopenia Overweight Primary osteoarthritis involving multiple joints Restless leg syndrome Tinea unguium Urinary incontinence spinal fusion right LAMAR 2016 (lateral scar) PT-OP-B Current Condition Start: 05/29/24 16:33 Freq: Status: Active Protocol: Document 06/27/24 08:16 SAK (Rec: 06/27/24 09:02 SAK [id number]) Current Condition History of Current Condition Onset Date 05/04/24 Current Complaints left hip and LBP History of Current Condition GLF due to slick board, bruising left posterior thigh, states fell on left buttock and slid. Went to ER, diagnosed as strain. Iced first 24 hours, then started alternating ice and heat. Then Epsom salt baths thinks made swelling worse. Thinks swelling gone now. Pain persists and reports back pain has worsened (history of LBP with spinal fusion) Spinal fusion L45 October 2021, pain now occasional with bending over without correct body mechanics , has worsened since fall; more frequently. Most pain with sit to stand. Buttock pain constant. For exercises walks around town for errands, yesterday went back to rowing with a group but had buttock pain. Has an exercise machine dual reclined rower and reclined cycle. No new N/T, has chronic numbness left toes , a couple right toes. Prior Treatments and Tests spinal fusion 2021 no imaging after fall PT-OP-C Subjective Start: 05/29/24 16:33 Freq: Status: Active Protocol: Document 06/27/24 08:16 SAK (Rec: 06/27/24 09:02 [facility] [id number]) OP-PT Subjective Patient Comments Patient Comments HS about the same as last time , can walk ok. Some pain with sitting. Went to GP yesterday , had x-rays of spine, MRI being set up for gall bladder. PT-OP-G Mobility & Gait Start: 05/29/24 16:33 Freq: Status: Active Protocol: Document 05/30/24 11:32 SAK (Rec: 06/04/24 15:09 [facility] [id number]) OP Gait Assessment Gait Gait Assistance Required: Independent Assistive Devices Assistive Device None Gait Deviations General Gait Pattern Antalgic Stair Climbing Evaluation Technique/Endurance Stair Climbing Direction Ascend and Descend Stair Climbing Technique Step to Step PT-OP-H Neuro Start: 05/29/24 16:33 Freq: Status: Active Protocol: Document 05/30/24 11:32 [facility] (Rec: 06/04/24 15:09 [facility] [id number]) Sensation Evaluation Gross Sensation Gross Sensation WNL PT-OP-J Posture/Palpation/Skin Start: 05/29/24 16:33 Freq: Status: Active Protocol: Document 05/30/24 11:32 [facility] (Rec: 05/30/24 12:13 [facility] [id number]) Posture Evaluation Position Standing Head/C-Spine Posture Forward Head T-Spine Posture Increased Kyphosis L-Spine Posture Increased Lordosis Scapula Posture (L) Protracted,(R) Protracted Arm Posture (L) Internally Rotated Pelvis Posture Anteriorly Tilted Palpation Assessment Location right anterior thigh Palpation Findings Soft Tissue Tightness left buttock, hamstring Palpation Findings Soft Tissue Tightness, Tenderness l/s Palpation Findings Soft Tissue Tightness,Muscle Guarding Palpation Details right greater than left Skin Assessment Edema Assessment LEs Comments no significant edema noted Other Assessments Skin Assessment Comments no bruising PT-OP-K Range of Motion Start: 05/29/24 16:33 Freq: Status: Active Protocol: Document 05/30/24 11:32 SAK (Rec: 06/04/24 15:09 [facility] [id number]) Lumbar Spine Range of Motion Lumbar Spine Active Flexion 45 Extension 10 Rotation Left 15 Rotation Right 15 Lateral Flexion Left 20 Lateral Flexion Right 20 ROM Limitations Soft Tissue Tightness,Pain Hip Goniometric Range of Motion Hip Left Flexion w/Knee Flexed 95 Straight Leg Raise 65 Extension 5 Abduction 25 Internal Rotation 15 External Rotation 60 Right Hip ROM WFL Yes Hip ROM Limitations Hip ROM Limitations Soft Tissue Tightness,Pain Knee Goniometric Range of Motion Knee jered Knee ROM WFL Yes PT-OP-M Strength Start: 05/29/24 16:33 Freq: Status: Active Protocol: Document 05/30/24 11:32 [facility] (Rec: 05/30/24 12:13 [facility] [id number]) Trunk Strength Trunk Manual Muscle Testing Flexion 3+ Fair+ Extension 3- Fair- Hip Strength Hip Manual Muscle Testing Left Flexion (L2) 4- Good- Extension (S1) 3+ Fair+ Abduction 4 Good Adduction 4- Good- External Rotation 4- Good- Internal Rotation 4 Good Right Flexion (L2) 4- Good- Extension (S1) 3+ Fair+ Abduction 4 Good Adduction 4- Good- External Rotation 4- Good- Internal Rotation 4 Good Knee Strength Knee Manual Muscle Testing Left Flexion (S2) 3+ Fair+ Extension (L3) 4- Good- Comments pain with resisted flexion Right Flexion (S2) 5 Normal Extension (L3) 4- Good- Ankle/Foot Strength Ankle and Foot Manual Muscle Testing Left Dorsiflexion (L4) 4+ Good+ Plantarflexion (S1) 3+ Fair+ Right Dorsiflexion (L4) 4- Good- Plantarflexion (S1) 3+ Fair+ PT-OP-Q Treatments Start: 05/29/24 16:33 Freq: Status: Active Protocol: Document 06/27/24 08:16 [facility] (Rec: 06/27/24 09:02 [facility] [id number]) Cardio Equipment Recumbent Stepper (Sci-Fit) Duration (Minutes) 10 Resistance 2-5 Seat Position 7 Other cues for push through heels, BUE &LEs entire 10min, 1.35 mi Therapeutic Exercises Supine Exercises bent knee march Reps/Minutes 10x Comments cues for core activation HS stretch Reps/Minutes 2x30 Comments gentle bridge Supine Exercise Name segmental jered, uni Reps/Minutes 5 SH x10 Comments cues for pain-free ROM Prone Exercises quad Side right Equipment Used strap on foot Comments quad stretch- good Sidelying Exercises hip abd Sidelying Exercise Name reviewed HEP Side right Resistance AROM Reps/Minutes 10 reps each side Comments occ cues with good recheck side alignment- R leg weaker Standing Exercises SLS Equipment Used mirror Reps/Minutes 5x Comments cues for core and glute activation, level pelvis march Equipment Used mirror Reps/Minutes 4x Comments cues for core activation quad stretch Equipment Used chair Reps/Minutes 1x60 jered paloff press Side bilateral Resistance double green #3 Reps/Minutes 10 reps each side Comments cuedneutral posture, core activation Gait Training Gait Activity stairs Device Used jered rails CGA Surface 4 stairs(6) x 2 Treatment Focus glut activation, no twisting of pelvis Comments cued slow control Manual Therapy Treatment Soft Tissue Mobilization jered LE's Body Location R TFL, prox quad Mobilization Type Myofascial Release,Strumming, Sustained Pressure,Other Body Position Hooklying Other Other Manual Treatments shotgun technique for pelvic realignment; resisted abd at neutral, ab approx 30 deg, ab 60 deg x 5 sec ea, then resisted add hand and elbow between knees x 5 sec. Patient reported hip felt better, PT noted improved pelvic alignment Self-Care/Home Management Treatment Education Other Education added multiposition supine clam with L5 TB followed by ball squeeze to simulate shotgun pelvic realignment technique add SLS and stair work for HEP PT-OP-R Modalities Start: 05/29/24 16:33 Freq: Status: Active Protocol: Document 06/27/24 08:16 [facility] (Rec: 06/27/24 09:02 [facility] [id number]) Hot Pack/Cold Pack Treatment Cold Pack Location right ant hip, HS Patient Position Hooklying Patient Tolerance Good PT-OP-T Assessment and Plan Start: 05/29/24 16:33 Freq: Status: Active Protocol: Document 06/27/24 08:16 [facility] (Rec: 06/27/24 09:02 [facility] [id number]) Physical Therapy Assessment Goals Three Impairment antalgic gait Fpc Goal (LTG) Patient will be able to ambulate on level surfaces and stairs without limp and with ability to alternate LE's on stairs 06/27/24: good goal progress, some limp still evident, pt re -injured hamstring this week with quick movement LTG Duration 07/28/24 Four Impairment soft tissue tightness posterior left thigh, buttock Fpc Goal (LTG) Improve soft tissue mobility to WNL to promote full active use of left LE LTG Duration 07/28/24 Two Impairment Lower extremity functional scale score 43/80, Oswestry 20 % Fpc Goal (LTG) Improve LEFS score to at least 70% and Oswestry to no greater than 10% as measure of improved low back and left LE function 06/27/24: LEFS increased to 63% , Oswestry decreased to 14%; both improved LTG Duration 07/28/24 One Impairment right posterior thigh, buttock , and LBP pain 4-8/10 Fpc Goal (LTG) Decrease pain to no greater than 2/10 with all usual activities 06/27/26: good goal progress reporting pain 2/10 on form today but has reported increase with activity and difficulty lifting right leg. LTG Duration 07/28/24 Assessment Summary Assessment Patient with fair tolerance for ther ex, had exacerbation of HS pain this week after moving quickly.Re-evaluation shows goal progress in all areas. Feel she has potential to continue to improve and fully reach her goals with continued skilled PT. Physical Therapy Plan Frequency and Duration Frequency of Treatment 2x/Week Duration of treatment (weeks) 8 Plan of Care Start Date 05/30/24 Plan of Care End Date 08/03/24 Therapeutic Interventions Therapeutic Interventions Gait Training,Home Exercise Program,Manual Therapy, Neuromuscular Re-education, Patient/Caregiver Education, Self-Care/Home Management,Soft Tissue Mobilization,Taping, Therapeutic Activities, Therapeutic Exercises Modalities Cold Pack/Ice Massage,Electric Stimulation,Hot Packs, Infrared Therapy,Iontophoresis ,Ultrasound Next Visit Focus/Plan Next Note Type Treatment Note Next Visit Plan Assess response to last session, resume HS ex as tolerated, continue emphasis on core stab, progression of strengthening and flexibility
--- NOTE | 2024-07-02 13:45 | PT.OTN ---
Current Diagnoses Other chronic pain (07/02/24) Low back pain, unspecified (07/02/24) Strain of muscle, fascia and tendon of the posterior muscle group at thigh level, left thigh, initial encounter (07/02/24) Physical Therapy Treatment Note PT-OP-A Visit Information Start: 05/29/24 16:33 Freq: Status: Active Protocol: Document 07/02/24 13:02 SP (Rec: 07/02/24 13:49 SP [id number]) Out-Patient Physical Therapy Visit Information Visit Information Visit Type Treatment Note Visit Start Time 13:02 Visit Stop Time 13:45 Visit Number 9 Number of SHANK FAKER Visits 1 Precautions Precautions Medical History (Reviewed @ 10:50 by Phillip Ramos MD) Allergic rhinitis Bipolar 2 disorder Chronic low back pain Depression, major, recurrent Dystrophic nail Essential hypertension Gait instability History of colonic polyps Impaired fasting glucose Laryngospasm Mixed hyperlipidemia PERES (nonalcoholic steatohepatitis) Osteochondritis of tibial tuberosity Osteopenia Overweight Primary osteoarthritis involving multiple joints Restless leg syndrome Tinea unguium Urinary incontinence spinal fusion right LAMAR 2016 (lateral scar) PT-OP-B Current Condition Start: 05/29/24 16:33 Freq: Status: Active Protocol: Document 06/27/24 08:16 SAK (Rec: 06/27/24 09:02 SAK [id number]) Current Condition History of Current Condition Onset Date 05/04/24 Current Complaints left hip and LBP History of Current Condition GLF due to slick board, bruising left posterior thigh, states fell on left buttock and slid. Went to ER, diagnosed as strain. Iced first 24 hours, then started alternating ice and heat. Then Epsom salt baths thinks made swelling worse. Thinks swelling gone now. Pain persists and reports back pain has worsened (history of LBP with spinal fusion) Spinal fusion L45 October 2021, pain now occasional with bending over without correct body mechanics , has worsened since fall; more frequently. Most pain with sit to stand. Buttock pain constant. For exercises walks around town for errands, yesterday went back to rowing with a group but had buttock pain. Has an exercise machine dual reclined rower and reclined cycle. No new N/T, has chronic numbness left toes , a couple right toes. Prior Treatments and Tests spinal fusion 2022 no imaging after fall PT-OP-C Subjective Start: 05/29/24 16:33 Freq: Status: Active Protocol: Document 07/02/24 13:02 SP (Rec: 07/02/24 13:49 SP [id number]) OP-PT Subjective Patient Comments Patient Comments Pt reports compliant with HEP. Is trying organize HEP HOs and trying to utilize flash cards. She has started taking Tramadol and using mechanical sounds to sleep and is helping sleep and more alert during day. Completed xray and all hardware in place. She is trying to be mindful of mechanics support fusion and no pain. Has periodic L calf cramp. She said upper R quaduant discomfort went away when took out small pillow at back sleeping. Awaiting MRI. PT-OP-G Mobility & Gait Start: 05/29/24 16:33 Freq: Status: Active Protocol: Document 05/30/24 11:32 SAK (Rec: 06/04/24 15:09 SAK [id number]) OP Gait Assessment Gait Gait Assistance Required: Independent Assistive Devices Assistive Device None Gait Deviations General Gait Pattern Antalgic Stair Climbing Evaluation Technique/Endurance Stair Climbing Direction Ascend and Descend Stair Climbing Technique Step to Step PT-OP-H Neuro Start: 05/29/24 16:33 Freq: Status: Active Protocol: Document 05/30/24 11:32 SAK (Rec: 06/04/24 15:09 SAK [id number]) Sensation Evaluation Gross Sensation Gross Sensation WNL PT-OP-J Posture/Palpation/Skin Start: 05/29/24 16:33 Freq: Status: Active Protocol: Document 05/30/24 11:32 SAK (Rec: 05/30/24 12:13 SAK [id number]) Posture Evaluation Position Standing Head/C-Spine Posture Forward Head T-Spine Posture Increased Kyphosis L-Spine Posture Increased Lordosis Scapula Posture (L) Protracted,(R) Protracted Arm Posture (L) Internally Rotated Pelvis Posture Anteriorly Tilted Palpation Assessment Location right anterior thigh Palpation Findings Soft Tissue Tightness left buttock, hamstring Palpation Findings Soft Tissue Tightness, Tenderness l/s Palpation Findings Soft Tissue Tightness,Muscle Guarding Palpation Details right greater than left Skin Assessment Edema Assessment LEs Comments no significant edema noted Other Assessments Skin Assessment Comments no bruising PT-OP-K Range of Motion Start: 05/29/24 16:33 Freq: Status: Active Protocol: Document 05/30/24 11:32 SAK (Rec: 06/04/24 15:09 SAK [id number]) Lumbar Spine Range of Motion Lumbar Spine Active Flexion 45 Extension 10 Rotation Left 15 Rotation Right 15 Lateral Flexion Left 20 Lateral Flexion Right 20 ROM Limitations Soft Tissue Tightness,Pain Hip Goniometric Range of Motion Hip Left Flexion w/Knee Flexed 95 Straight Leg Raise 65 Extension 5 Abduction 25 Internal Rotation 15 External Rotation 60 Right Hip ROM WFL Yes Hip ROM Limitations Hip ROM Limitations Soft Tissue Tightness,Pain Knee Goniometric Range of Motion Knee tyron Knee ROM WFL Yes PT-OP-M Strength Start: 05/29/24 16:33 Freq: Status: Active Protocol: Document 05/30/24 11:32 SAK (Rec: 05/30/24 12:13 [facility] [id number]) Trunk Strength Trunk Manual Muscle Testing Flexion 3+ Fair+ Extension 3- Fair- Hip Strength Hip Manual Muscle Testing Left Flexion (L2) 4- Good- Extension (S1) 3+ Fair+ Abduction 4 Good Adduction 4- Good- External Rotation 4- Good- Internal Rotation 4 Good Right Flexion (L2) 4- Good- Extension (S1) 3+ Fair+ Abduction 4 Good Adduction 4- Good- External Rotation 4- Good- Internal Rotation 4 Good Knee Strength Knee Manual Muscle Testing Left Flexion (S2) 3+ Fair+ Extension (L3) 4- Good- Comments pain with resisted flexion Right Flexion (S2) 5 Normal Extension (L3) 4- Good- Ankle/Foot Strength Ankle and Foot Manual Muscle Testing Left Dorsiflexion (L4) 4+ Good+ Plantarflexion (S1) 3+ Fair+ Right Dorsiflexion (L4) 4- Good- Plantarflexion (S1) 3+ Fair+ PT-OP-Q Treatments Start: 05/29/24 16:33 Freq: Status: Active Protocol: Document 07/02/24 13:02 SP (Rec: 07/02/24 13:49 SP [id number]) Cardio Equipment Recumbent Stepper (Sci-Fit) Duration (Minutes) 10 Resistance 3>4> 5 Seat Position 7- 1.28 miles Other cues for push through heels, BUE &LEs entire 10min, 1.35 mi Therapeutic Exercises Supine Exercises bent knee march Side bilateral Reps/Minutes 20 alternating Comments cues for PPT & core activation , range <90 deg hip flexion, no ant hip pinch bridge Supine Exercise Name segmental tyron, uni Side bilateral Resistance R weaker than L Uni Reps/Minutes 5 SH x10 tyron, 8 reps each Uni Comments cues for pain-free ROM, foot little closer for glut decr HS recruitment supine clam Side left Resistance L2 at thighs Reps/Minutes 10x5 Comments good form, little discomfort posterolateral L femur Sidelying Exercises clamshell Sidelying Exercise Name progressed to clamshell SL Side bilateral Resistance Tb #2 around lower thighs Reps/Minutes 10 each side ( SL R, hooklying L) Comments good self stacked on side corrections, cued hip/knee flex little more R Other Exercises self STMs Other Exercise Name standing: hip flexor at wall vs prone floor, long sit HS Side right Equipment Used Tyron miracle ball better than racquetball Reps/Minutes 8 min total finding right positioning and movement vs relaxed over balls Comments R posterolateral hip ball wall , prone prox quad/TFL miracle ball hip IR/ER PT-OP-R Modalities Start: 05/29/24 16:33 Freq: Status: Active Protocol: Document 06/27/24 08:16 SAK (Rec: 06/27/24 09:02 SAK [id number]) Hot Pack/Cold Pack Treatment Cold Pack Location right ant hip, HS Patient Position Hooklying Patient Tolerance Good PT-OP-T Assessment and Plan Start: 05/29/24 16:33 Freq: Status: Active Protocol: Document 07/02/24 13:02 SP (Rec: 07/02/24 13:49 SP [id number]) Physical Therapy Assessment Goals Three Impairment antalgic gait Shower Maid Goal (LTG) Patient will be able to ambulate on level surfaces and stairs without limp and with ability to alternate LE's on stairs 06/27/24: good goal progress, some limp still evident, pt re -injured hamstring this week with quick movement LTG Duration 07/28/24 Four Impairment soft tissue tightness posterior left thigh, buttock Impairment Activities-specific balance confidence (ABC) Scale 24% Shower Maid Goal (LTG) Improve soft tissue mobility to WNL to promote full active use of left LE LTG Duration 07/28/24 Two Impairment Lower extremity functional scale score 43/80, Oswestry 20 % Impairment Patient unable to go hiking safely Residential Goal (LTG) Improve LEFS score to at least 70% and Oswestry to no greater than 10% as measure of improved low back and left LE function 06/27/24: LEFS increased to 63% , Oswestry decreased to 14%; both improved LTG Duration 07/28/24 One Impairment right posterior thigh, buttock , and LBP pain 4-8/10 Impairment Dynamic gait index 54% Shower Maid Goal (LTG) Decrease pain to no greater than 2/10 with all usual activities 06/27/26: good goal progress reporting pain 2/10 on form today but has reported increase with activity and difficulty lifting right leg. LTG Duration 07/28/24 Assessment Summary Assessment Pt reports decreased tightness with instruction for self STMs use racquetball vs tennis ball (prox HS long sit) vs miracle ball prong hip flexor/ prox quad today for carryover home. Improved core and glut during hooklying HEP review today. Cues as needed. Physical Therapy Plan Frequency and Duration Frequency of Treatment 2x/Week Duration of treatment (weeks) 8 Plan of Care Start Date 05/30/24 Plan of Care End Date 08/03/24 Therapeutic Interventions Therapeutic Interventions Gait Training,Home Exercise Program,Manual Therapy, Neuromuscular Re-education, Patient/Caregiver Education, Self-Care/Home Management,Soft Tissue Mobilization,Taping, Therapeutic Activities, Therapeutic Exercises Modalities Cold Pack/Ice Massage,Electric Stimulation,Hot Packs, Infrared Therapy,Iontophoresis ,Ultrasound Next Visit Focus/Plan Next Note Type Treatment Note Next Visit Plan Assess response to last session, resume HS ex as tolerated, continue emphasis on core stab, progression of strengthening and flexibility
--- NOTE | 2024-07-04 13:44 | PT.OTN ---
Current Diagnoses Other chronic pain (07/04/24) Low back pain, unspecified (07/04/24) Strain of muscle, fascia and tendon of the posterior muscle group at thigh level, left thigh, initial encounter (07/04/24) Physical Therapy Treatment Note PT-OP-A Visit Information Start: 05/29/24 16:33 Freq: Status: Active Protocol: Document 07/04/24 13:06 SP (Rec: 07/04/24 13:45 SP [id number]) Out-Patient Physical Therapy Visit Information Visit Information Visit Type Treatment Note Visit Start Time 13:06 Visit Stop Time 13:44 Visit Number 10 (07/09 with PN) Number of LACING CUTTER Visits 2 Precautions Precautions Medical History (Reviewed @ 10:50 by Phillip Ramos MD) Allergic rhinitis Bipolar 2 disorder Chronic low back pain Depression, major, recurrent Dystrophic nail Essential hypertension Gait instability History of colonic polyps Impaired fasting glucose Laryngospasm Mixed hyperlipidemia PERES (nonalcoholic steatohepatitis) Osteochondritis of tibial tuberosity Osteopenia Overweight Primary osteoarthritis involving multiple joints Restless leg syndrome Tinea unguium Urinary incontinence spinal fusion right LAMAR 2016 (lateral scar) PT-OP-B Current Condition Start: 05/29/24 16:33 Freq: Status: Active Protocol: Document 06/27/24 08:16 SAK (Rec: 06/27/24 09:02 SAK [id number]) Current Condition History of Current Condition Onset Date 05/04/24 Current Complaints left hip and LBP History of Current Condition GLF due to slick board, bruising left posterior thigh, states fell on left buttock and slid. Went to ER, diagnosed as strain. Iced first 24 hours, then started alternating ice and heat. Then Epsom salt baths thinks made swelling worse. Thinks swelling gone now. Pain persists and reports back pain has worsened (history of LBP with spinal fusion) Spinal fusion L45 October 2021, pain now occasional with bending over without correct body mechanics , has worsened since fall; more frequently. Most pain with sit to stand. Buttock pain constant. For exercises walks around town for errands, yesterday went back to rowing with a group but had buttock pain. Has an exercise machine dual reclined rower and reclined cycle. No new N/T, has chronic numbness left toes , a couple right toes. Prior Treatments and Tests spinal fusion 2021 no imaging after fall PT-OP-C Subjective Start: 05/29/24 16:33 Freq: Status: Active Protocol: Document 07/04/24 13:06 SP (Rec: 07/04/24 13:45 SP [id number]) OP-PT Subjective Patient Comments Patient Comments Pt reports her back is sore, not sure if was sitting proper positioning. She reports did ok after last tx, didn't need take epsin salt bath and had energy for rest of day and slept well Mon night. She didn 't get to ex yesterday but didn't sit alot. She states has good rise to run stairs to practice on. PT-OP-G Mobility & Gait Start: 05/29/24 16:33 Freq: Status: Active Protocol: Document 05/30/24 11:32 SAK (Rec: 06/04/24 15:09 SAK [id number]) OP Gait Assessment Gait Gait Assistance Required: Independent Assistive Devices Assistive Device None Gait Deviations General Gait Pattern Antalgic Stair Climbing Evaluation Technique/Endurance Stair Climbing Direction Ascend and Descend Stair Climbing Technique Step to Step PT-OP-H Neuro Start: 05/29/24 16:33 Freq: Status: Active Protocol: Document 05/30/24 11:32 SAK (Rec: 06/04/24 15:09 SAK [id number]) Sensation Evaluation Gross Sensation Gross Sensation WNL PT-OP-J Posture/Palpation/Skin Start: 05/29/24 16:33 Freq: Status: Active Protocol: Document 05/30/24 11:32 SAK (Rec: 05/30/24 12:13 SAK [id number]) Posture Evaluation Position Standing Head/C-Spine Posture Forward Head T-Spine Posture Increased Kyphosis L-Spine Posture Increased Lordosis Scapula Posture (L) Protracted,(R) Protracted Arm Posture (L) Internally Rotated Pelvis Posture Anteriorly Tilted Palpation Assessment Location right anterior thigh Palpation Findings Soft Tissue Tightness left buttock, hamstring Palpation Findings Soft Tissue Tightness, Tenderness l/s Palpation Findings Soft Tissue Tightness,Muscle Guarding Palpation Details right greater than left Skin Assessment Edema Assessment LEs Comments no significant edema noted Other Assessments Skin Assessment Comments no bruising PT-OP-K Range of Motion Start: 05/29/24 16:33 Freq: Status: Active Protocol: Document 05/30/24 11:32 SAK (Rec: 06/04/24 15:09 [facility] [id number]) Lumbar Spine Range of Motion Lumbar Spine Active Flexion 45 Extension 10 Rotation Left 15 Rotation Right 15 Lateral Flexion Left 20 Lateral Flexion Right 20 ROM Limitations Soft Tissue Tightness,Pain Hip Goniometric Range of Motion Hip Left Flexion w/Knee Flexed 95 Straight Leg Raise 65 Extension 5 Abduction 25 Internal Rotation 15 External Rotation 60 Right Hip ROM WFL Yes Hip ROM Limitations Hip ROM Limitations Soft Tissue Tightness,Pain Knee Goniometric Range of Motion Knee jered Knee ROM WFL Yes PT-OP-M Strength Start: 05/29/24 16:33 Freq: Status: Active Protocol: Document 05/30/24 11:32 [facility] (Rec: 05/30/24 12:13 [facility] [id number]) Trunk Strength Trunk Manual Muscle Testing Flexion 3+ Fair+ Extension 3- Fair- Hip Strength Hip Manual Muscle Testing Left Flexion (L2) 4- Good- Extension (S1) 3+ Fair+ Abduction 4 Good Adduction 4- Good- External Rotation 4- Good- Internal Rotation 4 Good Right Flexion (L2) 4- Good- Extension (S1) 3+ Fair+ Abduction 4 Good Adduction 4- Good- External Rotation 4- Good- Internal Rotation 4 Good Knee Strength Knee Manual Muscle Testing Left Flexion (S2) 3+ Fair+ Extension (L3) 4- Good- Comments pain with resisted flexion Right Flexion (S2) 5 Normal Extension (L3) 4- Good- Ankle/Foot Strength Ankle and Foot Manual Muscle Testing Left Dorsiflexion (L4) 4+ Good+ Plantarflexion (S1) 3+ Fair+ Right Dorsiflexion (L4) 4- Good- Plantarflexion (S1) 3+ Fair+ PT-OP-Q Treatments Start: 05/29/24 16:33 Freq: Status: Active Protocol: Document 07/04/24 13:06 SP (Rec: 07/04/24 13:45 SP [id number]) Cardio Equipment Recumbent Stepper (Sci-Fit) Duration (Minutes) 10 Resistance 3>4> 5 Seat Position 7- 1.40 miles Other cues for push through heels, BUE &LEs entire 10min, 1.35 mi Therapeutic Exercises Standing Exercises calf raises Standing Exercise Name trialed in PT Side bilateral Resistance Tb #1 leg wt Equipment Used near rail Reps/Minutes 15 reps Comments good tiring march Resistance TB #1 on feet Equipment Used mirror Reps/Minutes 20 reps alternating Comments cues for core activation hip abduction Standing Exercise Name reviewed Side bilateral Resistance 1# leg wt Reps/Minutes 2x10 Comments cued foot drive glut & hip abd engagement on R during LLE mobility HS curl Standing Exercise Name reviewed Side bilateral Resistance 1# leg wt Reps/Minutes x20 each leg alternating Comments Cued slow pacing, small range cued foot drive glut & hip abd engagement resisted walking Standing Exercise Name fwd, bwd- reviewed Resistance L1 TB around ankles Reps/Minutes 10 ft x1 lap Comments cued feet wide paloff press Standing Exercise Name reviewed Side bilateral Resistance double green #3 Reps/Minutes 15 reps each side Comments cued press out front navel, core activation Gait Training Gait Activity stairs Device Used jered rails CGA Surface 4 stairs (6) x 2, MAP Bldg stairs 28 Treatment Focus glut activation, no twisting of pelvis Comments cued slow control, wt shift over advanced LE and increase TALON, more stability control descent no UE support. PT-OP-R Modalities Start: 05/29/24 16:33 Freq: Status: Active Protocol: Document 06/27/24 08:16 SAK (Rec: 06/27/24 09:02 SAK [id number]) Hot Pack/Cold Pack Treatment Cold Pack Location right ant hip, HS Patient Position Hooklying Patient Tolerance Good PT-OP-T Assessment and Plan Start: 05/29/24 16:33 Freq: Status: Active Protocol: Document 07/04/24 13:06 SP (Rec: 07/04/24 13:45 SP [id number]) Physical Therapy Assessment Goals Three Impairment antalgic gait Long-Term Goal (LTG) Patient will be able to ambulate on level surfaces and stairs without limp and with ability to alternate LE's on stairs 06/27/24: good goal progress, some limp still evident, pt re -injured hamstring this week with quick movement LTG Duration 07/28/24 Four Impairment soft tissue tightness posterior left thigh, buttock Impairment Activities-specific balance confidence (ABC) Scale 24% Long-Term Goal (LTG) Improve soft tissue mobility to WNL to promote full active use of left LE LTG Duration 07/28/24 Two Impairment Lower extremity functional scale score 43/80, Oswestry 20 % Impairment Patient unable to go hiking safely Long-Term Goal (LTG) Improve LEFS score to at least 70% and Oswestry to no greater than 10% as measure of improved low back and left LE function 06/27/24: LEFS increased to 63% , Oswestry decreased to 14%; both improved LTG Duration 07/28/24 One Impairment right posterior thigh, buttock , and LBP pain 4-8/10 Impairment Dynamic gait index 54% Dieing Out Machine Operator Goal (LTG) Decrease pain to no greater than 2/10 with all usual activities 06/27/26: good goal progress reporting pain 2/10 on form today but has reported increase with activity and difficulty lifting right leg. LTG Duration 07/28/24 Assessment Summary Assessment Pt improved postural, TA engagement needed and LT/foot alignment corrections with cues, tolerated progressed resisted ther ex today. Pt reported felt pretty good end tx, felt core tiring. Physical Therapy Plan Frequency and Duration Frequency of Treatment 2x/Week Duration of treatment (weeks) 8 Plan of Care Start Date 05/30/24 Plan of Care End Date 08/03/24 Therapeutic Interventions Therapeutic Interventions Gait Training,Home Exercise Program,Manual Therapy, Neuromuscular Re-education, Patient/Caregiver Education, Self-Care/Home Management,Soft Tissue Mobilization,Taping, Therapeutic Activities, Therapeutic Exercises Modalities Cold Pack/Ice Massage,Electric Stimulation,Hot Packs, Infrared Therapy,Iontophoresis ,Ultrasound Next Visit Focus/Plan Next Note Type Treatment Note Next Visit Plan Recheck roxanne after last tx returnto resisted HEP incorporating HS ex and continue emphasis on core stab , progression of strengthening and flexibility
--- NOTE | 2024-07-09 10:00 | PT.OTN ---
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 Precautions Precautions Medical History (Reviewed @ 10:50 by Phillip Ramos MD) Allergic rhinitis Bipolar 2 disorder Chronic low back pain Depression, major, recurrent Dystrophic nail Essential hypertension Gait instability History of colonic polyps Impaired fasting glucose Laryngospasm Mixed hyperlipidemia PERES (nonalcoholic steatohepatitis) Osteochondritis of tibial tuberosity Osteopenia Overweight Primary osteoarthritis involving multiple joints Restless leg syndrome Tinea unguium Urinary incontinence spinal fusion right LAMAR 2016 (lateral scar) PT-OP-B Current Condition Start: 05/29/24 16:33 Freq: Status: Active Protocol: Document 07/09/24 09:02 SAK (Rec: 07/09/24 10:00 SAK [id number]) Current Condition History of Current Condition Onset Date 05/04/24 Current Complaints left hip and LBP History of Current Condition GLF due to slick board, bruising left posterior thigh, states fell on left buttock and slid. Went to ER, diagnosed as strain. Iced first 24 hours, then started alternating ice and heat. Then Epsom salt baths thinks made swelling worse. Thinks swelling gone now. Pain persists and reports back pain has worsened (history of LBP with spinal fusion) Spinal fusion L45 October 2021, pain now occasional with bending over without correct body mechanics , has worsened since fall; more frequently. Most pain with sit to stand. Buttock pain constant. For exercises walks around town for errands, yesterday went back to rowing with a group but had buttock pain. Has an exercise machine dual reclined rower and reclined cycle. No new N/T, has chronic numbness left toes , a couple right toes. Prior Treatments and Tests spinal fusion 2021 no imaging after fall PT-OP-C Subjective Start: 05/29/24 16:33 Freq: Status: Active Protocol: Document 07/09/24 09:02 SAK (Rec: 07/09/24 10:00 [facility] [id number]) OP-PT Subjective Patient Comments Patient Comments Did exercises Tuesday, was very sore in left hamstring after. At end of exercises couldn't lift right leg , after quad stretch could do a couple. Concerned may need a LAMAR revision (LAMAR 2017) Took Epsom salt bath which was helpful. PT-OP-G Mobility & Gait Start: 05/29/24 16:33 Freq: Status: Active Protocol: Document 05/30/24 11:32 SAK (Rec: 06/04/24 15:09 [facility] [id number]) OP Gait Assessment Gait Gait Assistance Required: Independent Assistive Devices Assistive Device None Gait Deviations General Gait Pattern Antalgic Stair Climbing Evaluation Technique/Endurance Stair Climbing Direction Ascend and Descend Stair Climbing Technique Step to Step PT-OP-H Neuro Start: 05/29/24 16:33 Freq: Status: Active Protocol: Document 05/30/24 11:32 SAK (Rec: 06/04/24 15:09 [facility] [id number]) Sensation Evaluation Gross Sensation Gross Sensation WNL PT-OP-J Posture/Palpation/Skin Start: 05/29/24 16:33 Freq: Status: Active Protocol: Document 05/30/24 11:32 SAK (Rec: 05/30/24 12:13 [facility] [id number]) Posture Evaluation Position Standing Head/C-Spine Posture Forward Head T-Spine Posture Increased Kyphosis L-Spine Posture Increased Lordosis Scapula Posture (L) Protracted,(R) Protracted Arm Posture (L) Internally Rotated Pelvis Posture Anteriorly Tilted Palpation Assessment Location right anterior thigh Palpation Findings Soft Tissue Tightness left buttock, hamstring Palpation Findings Soft Tissue Tightness, Tenderness l/s Palpation Findings Soft Tissue Tightness,Muscle Guarding Palpation Details right greater than left Skin Assessment Edema Assessment LEs Comments no significant edema noted Other Assessments Skin Assessment Comments no bruising PT-OP-K Range of Motion Start: 05/29/24 16:33 Freq: Status: Active Protocol: Document 05/30/24 11:32 SAK (Rec: 06/04/24 15:09 [facility] [id number]) Lumbar Spine Range of Motion Lumbar Spine Active Flexion 45 Extension 10 Rotation Left 15 Rotation Right 15 Lateral Flexion Left 20 Lateral Flexion Right 20 ROM Limitations Soft Tissue Tightness,Pain Hip Goniometric Range of Motion Hip Left Flexion w/Knee Flexed 95 Straight Leg Raise 65 Extension 5 Abduction 25 Internal Rotation 15 External Rotation 60 Right Hip ROM WFL Yes Hip ROM Limitations Hip ROM Limitations Soft Tissue Tightness,Pain Knee Goniometric Range of Motion Knee jered Knee ROM WFL Yes PT-OP-M Strength Start: 05/29/24 16:33 Freq: Status: Active Protocol: Document 05/30/24 11:32 [facility] (Rec: 05/30/24 12:13 [facility] [id number]) Trunk Strength Trunk Manual Muscle Testing Flexion 3+ Fair+ Extension 3- Fair- Hip Strength Hip Manual Muscle Testing Left Flexion (L2) 4- Good- Extension (S1) 3+ Fair+ Abduction 4 Good Adduction 4- Good- External Rotation 4- Good- Internal Rotation 4 Good Right Flexion (L2) 4- Good- Extension (S1) 3+ Fair+ Abduction 4 Good Adduction 4- Good- External Rotation 4- Good- Internal Rotation 4 Good Knee Strength Knee Manual Muscle Testing Left Flexion (S2) 3+ Fair+ Extension (L3) 4- Good- Comments pain with resisted flexion Right Flexion (S2) 5 Normal Extension (L3) 4- Good- Ankle/Foot Strength Ankle and Foot Manual Muscle Testing Left Dorsiflexion (L4) 4+ Good+ Plantarflexion (S1) 3+ Fair+ Right Dorsiflexion (L4) 4- Good- Plantarflexion (S1) 3+ Fair+ PT-OP-Q Treatments Start: 05/29/24 16:33 Freq: Status: Active Protocol: Document 07/09/24 09:02 [facility] (Rec: 07/09/24 10:00 [facility] [id number]) Cardio Equipment Recumbent Stepper (Sci-Fit) Duration (Minutes) 10 Resistance 3>4> 5 Seat Position 7- 1.40 miles Other cues for push through heels, BUE &LEs entire 10min, 1.35 mi Gym Equipment Sport Cord green cord Exercise Details backward walking Cord/Resistance green Reps/Duration 5x Comments cues for core and glut activation Therapeutic Exercises Supine Exercises bent knee march Side bilateral Reps/Minutes 20 alternating Comments cues for PPT & core activation , range <90 deg hip flexion, no ant hip pinch Standing Exercises row, sh ext Standing Exercise Name HEP Equipment Used L5 june Resistance TB #1 on feet Equipment Used mirror Reps/Minutes 20 reps alternating Comments cues for core activation hip abduction Standing Exercise Name reviewed Side bilateral Resistance L1 TB Reps/Minutes 2x10 [address] glut & hip abd engagement on R during LLE mobility HS curl Standing Exercise Name reviewed Side bilateral Resistance 1# leg wt Reps/Minutes x20 each leg alternating Comments Cued slow pacing, small range cued foot drive glut & hip abd engagement resisted walking Standing Exercise Name fwd, bwd- reviewed Resistance L1 TB around ankles Reps/Minutes 10 ft x1 lap Comments cued feet wide paloff press Standing Exercise Name HEP squats Standing Exercise Name STS Equipment Used from chair Reps/Minutes 10 reps Comments cue long spine, push through heels for glut activation Other Exercises self STMs Comments pt. has ordered miracle balls Gait Training Gait Activity mirror Distance/Duration 5 min Treatment Focus slow, cues for level pelvis Comments Improved pelvic control with repetition stairs Device Used jered rails CGA Surface 4 stairs (6) x 2, MAP Bldg stairs 28 Treatment Focus glut activation, no twisting of pelvis Comments cued slow control, wt shift over advanced LE and increase TALON, more stability control descent no UE support, cue glut activation Manual Therapy Treatment Soft Tissue Mobilization jered LE's Body Location R TFL, prox quad, left HS Mobilization Type Myofascial Release,Strumming, Sustained Pressure,Other Body Position Hooklying Comments Noted release left HS PT-OP-R Modalities Start: 05/29/24 16:33 Freq: Status: Active Protocol: Document 07/09/24 09:02 [facility] (Rec: 07/09/24 10:00 [facility] [id number]) Hot Pack/Cold Pack Treatment Cold Pack Location right ant hip, L HS Patient Position Hooklying Patient Tolerance Good PT-OP-T Assessment and Plan Start: 05/29/24 16:33 Freq: Status: Active Protocol: Document 07/09/24 09:02 [facility] (Rec: 07/09/24 10:00 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 [employer] Goal (LTG) Improve soft tissue mobility to WNL to promote full active use of left LE LTG Duration 07/28/24 Two Impairment Lower extremity functional scale score 43/80, Oswestry 20 % Impairment Patient unable to go hiking safely [employer] Goal (LTG) Improve LEFS score to at least 70% and Oswestry to no greater than 10% as measure of improved low back and left LE function 06/27/24: LEFS increased to 63% , Oswestry decreased to 14%; both improved LTG Duration 07/28/24 One Impairment right posterior thigh, buttock , and LBP pain 4-8/10 Impairment Dynamic gait index 54% Nursing Home Goal (LTG) Decrease pain to no greater than 2/10 with all usual activities 06/27/26: good goal progress reporting pain 2/10 on form today but has reported increase with activity and difficulty lifting right leg. LTG Duration 07/28/24 Assessment Summary Assessment Initially excess lateral hip sway with gait, decreased with verbal cues and visual cues with mirror and ther ex. Slow gait on stairs noted increased glut activation. Good muscle release left HS with manual. Feel lpatient would benefit from increased manual techniques as well as continued PT for core stab, gait training, functional retraining with cues for correct muscle activation. She may consult with orthopedist regarding persistent right hip pain. Physical Therapy Plan Frequency and Duration Frequency of Treatment 2x/Week Duration of treatment (weeks) 8 Plan of Care Start Date 05/30/24 Plan of Care End Date 08/03/24 Therapeutic Interventions Therapeutic Interventions Gait Training,Home Exercise Program,Manual Therapy, Neuromuscular Re-education, Patient/Caregiver Education, Self-Care/Home Management,Soft Tissue Mobilization,Taping, Therapeutic Activities, Therapeutic Exercises Modalities Cold Pack/Ice Massage,Electric Stimulation,Hot Packs, Infrared Therapy,Iontophoresis ,Ultrasound Next Visit Focus/Plan Next Note Type Treatment Note Next Visit Plan Continue manual techniques, core stab, progression of strengthening, flexibility, gait training.
--- NOTE | 2024-07-13 11:31 | PT.OTN ---
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 Precautions Precautions Medical History (Reviewed @ 10:50 by Phillip Ramos MD) Allergic rhinitis Bipolar 2 disorder Chronic low back pain Depression, major, recurrent Dystrophic nail Essential hypertension Gait instability History of colonic polyps Impaired fasting glucose Laryngospasm Mixed hyperlipidemia PERES (nonalcoholic steatohepatitis) Osteochondritis of tibial tuberosity Osteopenia Overweight Primary osteoarthritis involving multiple joints Restless leg syndrome Tinea unguium Urinary incontinence spinal fusion right LAMAR 2016 (lateral scar) PT-OP-B Current Condition Start: 05/29/24 16:33 Freq: Status: Active Protocol: Document 07/09/24 09:02 SAK (Rec: 07/09/24 10:00 SAK [id number]) Current Condition History of Current Condition Onset Date 05/04/24 Current Complaints left hip and LBP History of Current Condition GLF due to slick board, bruising left posterior thigh, states fell on left buttock and slid. Went to ER, diagnosed as strain. Iced first 24 hours, then started alternating ice and heat. Then Epsom salt baths thinks made swelling worse. Thinks swelling gone now. Pain persists and reports back pain has worsened (history of LBP with spinal fusion) Spinal fusion L45 October 2021, pain now occasional with bending over without correct body mechanics , has worsened since fall; more frequently. Most pain with sit to stand. Buttock pain constant. For exercises walks around town for errands, yesterday went back to rowing with a group but had buttock pain. Has an exercise machine dual reclined rower and reclined cycle. No new N/T, has chronic numbness left toes , a couple right toes. Prior Treatments and Tests spinal fusion 2021 no imaging after fall PT-OP-C Subjective Start: 05/29/24 16:33 Freq: Status: Active Protocol: Document 07/13/24 10:46 SP (Rec: 07/13/24 11:33 SP [id number]) OP-PT Subjective Patient Comments Patient Comments Pt reported just tired after last tx, wants to review sport cord and how can perform home . PT-OP-G Mobility & Gait Start: 05/29/24 16:33 Freq: Status: Active Protocol: Document 05/30/24 11:32 SAK (Rec: 06/04/24 15:09 SAK [id number]) OP Gait Assessment Gait Gait Assistance Required: Independent Assistive Devices Assistive Device None Gait Deviations General Gait Pattern Antalgic Stair Climbing Evaluation Technique/Endurance Stair Climbing Direction Ascend and Descend Stair Climbing Technique Step to Step PT-OP-H Neuro Start: 05/29/24 16:33 Freq: Status: Active Protocol: Document 05/30/24 11:32 SAK (Rec: 06/04/24 15:09 SAK [id number]) Sensation Evaluation Gross Sensation Gross Sensation WNL PT-OP-J Posture/Palpation/Skin Start: 05/29/24 16:33 Freq: Status: Active Protocol: Document 05/30/24 11:32 SAK (Rec: 05/30/24 12:13 SAK [id number]) Posture Evaluation Position Standing Head/C-Spine Posture Forward Head T-Spine Posture Increased Kyphosis L-Spine Posture Increased Lordosis Scapula Posture (L) Protracted,(R) Protracted Arm Posture (L) Internally Rotated Pelvis Posture Anteriorly Tilted Palpation Assessment Location right anterior thigh Palpation Findings Soft Tissue Tightness left buttock, hamstring Palpation Findings Soft Tissue Tightness, Tenderness l/s Palpation Findings Soft Tissue Tightness,Muscle Guarding Palpation Details right greater than left Skin Assessment Edema Assessment LEs Comments no significant edema noted Other Assessments Skin Assessment Comments no bruising PT-OP-K Range of Motion Start: 05/29/24 16:33 Freq: Status: Active Protocol: Document 05/30/24 11:32 SAK (Rec: 06/04/24 15:09 SAK [id number]) Lumbar Spine Range of Motion Lumbar Spine Active Flexion 45 Extension 10 Rotation Left 15 Rotation Right 15 Lateral Flexion Left 20 Lateral Flexion Right 20 ROM Limitations Soft Tissue Tightness,Pain Hip Goniometric Range of Motion Hip Left Flexion w/Knee Flexed 95 Straight Leg Raise 65 Extension 5 Abduction 25 Internal Rotation 15 External Rotation 60 Right Hip ROM WFL Yes Hip ROM Limitations Hip ROM Limitations Soft Tissue Tightness,Pain Knee Goniometric Range of Motion Knee jered Knee ROM WFL Yes PT-OP-M Strength Start: 05/29/24 16:33 Freq: Status: Active Protocol: Document 05/30/24 11:32 SAK (Rec: 05/30/24 12:13 [facility] [id number]) Trunk Strength Trunk Manual Muscle Testing Flexion 3+ Fair+ Extension 3- Fair- Hip Strength Hip Manual Muscle Testing Left Flexion (L2) 4- Good- Extension (S1) 3+ Fair+ Abduction 4 Good Adduction 4- Good- External Rotation 4- Good- Internal Rotation 4 Good Right Flexion (L2) 4- Good- Extension (S1) 3+ Fair+ Abduction 4 Good Adduction 4- Good- External Rotation 4- Good- Internal Rotation 4 Good Knee Strength Knee Manual Muscle Testing Left Flexion (S2) 3+ Fair+ Extension (L3) 4- Good- Comments pain with resisted flexion Right Flexion (S2) 5 Normal Extension (L3) 4- Good- Ankle/Foot Strength Ankle and Foot Manual Muscle Testing Left Dorsiflexion (L4) 4+ Good+ Plantarflexion (S1) 3+ Fair+ Right Dorsiflexion (L4) 4- Good- Plantarflexion (S1) 3+ Fair+ PT-OP-Q Treatments Start: 05/29/24 16:33 Freq: Status: Active Protocol: Document 07/13/24 10:46 SP (Rec: 07/13/24 11:33 SP [id number]) Cardio Equipment Recumbent Stepper (Sci-Fit) Duration (Minutes) 10 Resistance 3>4> 5 Seat Position 7- 1.47miles Other cues for push through heels, BUE &LEs entire 10min, 1.35 mi Gym Equipment Sport Cord green cord Exercise Details backward, forward, latreal walking Cord/Resistance green (inPT)- Home (Lv 3> Lvl 3+ 4 anchored hip height, Lv5 loop waist/hip) Reps/Duration 5x each direction Comments added to HEP with bands provided: cued for core and glut activation with midline stab and WBOS if needed retro, wt shift into advanced LE, slow eccentric return smaller steps for more rep opportunity strengthening. Therapeutic Exercises Standing Exercises row, sh ext Standing Exercise Name HEP Side bilateral Resistance L5 TB anchored Reps/Minutes 2x10 each motion alternating sets Comments improved self verbal squeeze between shoulder blades with abdomen draw in Other Exercises self STMs Other Exercise Name P ordered dual Miracle Ball Purple Comments only book came in will contact Co. send balls too. PT-OP-R Modalities Start: 05/29/24 16:33 Freq: Status: Active Protocol: Document 07/09/24 09:02 SAK (Rec: 07/09/24 10:00 SAK [id number]) Hot Pack/Cold Pack Treatment Cold Pack Location right ant hip, L HS Patient Position Hooklying Patient Tolerance Good PT-OP-T Assessment and Plan Start: 05/29/24 16:33 Freq: Status: Active Protocol: Document 07/13/24 10:46 SP (Rec: 07/13/24 11:33 SP [id number]) Physical Therapy Assessment Goals Three Impairment antalgic gait Half-Way Goal (LTG) Patient will be able to ambulate on level surfaces and stairs without limp and with ability to alternate LE's on stairs 06/27/24: good goal progress, some limp still evident, pt re -injured hamstring this week with quick movement LTG Duration 07/28/24 Four Impairment soft tissue tightness posterior left thigh, buttock Impairment Activities-specific balance confidence (ABC) Scale 24% 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 Goal (LTG) Improve soft tissue mobility to WNL to promote full active use of left LE LTG Duration 07/28/24 Two Impairment Lower extremity functional scale score 43/80, Oswestry 20 % Impairment Patient unable to go hiking safely 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 Goal (LTG) Improve LEFS score to at least 70% and Oswestry to no greater than 10% as measure of improved low back and left LE function 06/27/24: LEFS increased to 63% , Oswestry decreased to 14%; both improved LTG Duration 07/28/24 One Impairment right posterior thigh, buttock , and LBP pain 4-8/10 Impairment Dynamic gait index 54% 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 Goal (LTG) Decrease pain to no greater than 2/10 with all usual activities 06/27/26: good goal progress reporting pain 2/10 on form today but has reported increase with activity and difficulty lifting right leg. LTG Duration 07/28/24 Assessment Summary Assessment Pt min cues for smaller step during sport cord balance and core facilitated activity. Provided TBs for carryover, improved corrections with decrease trunk lateral lean over stance LE with reps progression wtih abilty to progress 4 directions. Good resistance provided Lev 2 for resisted shld ext, better core engagement reported. Physical Therapy Plan Frequency and Duration Frequency of Treatment 2x/Week Duration of treatment (weeks) 8 Plan of Care Start Date 05/30/24 Plan of Care End Date 08/03/24 Therapeutic Interventions Therapeutic Interventions Gait Training,Home Exercise Program,Manual Therapy, Neuromuscular Re-education, Patient/Caregiver Education, Self-Care/Home Management,Soft Tissue Mobilization,Taping, Therapeutic Activities, Therapeutic Exercises Modalities Cold Pack/Ice Massage,Electric Stimulation,Hot Packs, Infrared Therapy,Iontophoresis ,Ultrasound Next Visit Focus/Plan Next Note Type Treatment Note Next Visit Plan Recheck sport cord, will bring provided TB. POC: Continue manual techniques, core stab, progression of strengthening, flexibility, gait training.
--- NOTE | 2024-07-16 08:47 | PT-OP ANOTE ---
patient cancelled due to ill; thinks has shingles
--- NOTE | 2024-07-18 13:43 | PT-OP ANOTE ---
Pt called <24 hrs cancel today's appt. Saw Dr Ramos yesterday and has potential atypical shingles with itching and burning sensations. Also had a forward fall hitting upperlip now puffy just before her appt. She has dental appt next week to check her teeth. Hopes she will feel better before next Th appt 07/26/24. [employer]ER asked if can't attend appt call >24 hrs if able.
--- NOTE | 2024-07-24 12:18 | PT.OTN ---
Current Diagnoses Other chronic pain (07/24/24) Low back pain, unspecified (07/24/24) Strain of muscle, fascia and tendon of the posterior muscle group at thigh level, left thigh, initial encounter (07/24/24) Physical Therapy Treatment Note PT-OP-A Visit Information Start: 05/29/24 16:33 Freq: Status: Active Protocol: Document 07/24/24 11:31 SP (Rec: 07/24/24 12:27 SP [id number]) Out-Patient Physical Therapy Visit Information Visit Information Visit Type Treatment Note Visit Start Time 11:37 Visit Stop Time 12:18 Visit Number 13 (10/09 visits with PN) Number of COMMER[employer] ACCOUNT ASSISTANT Visits 2 Precautions Precautions Medical History (Reviewed @ 10:50 by Phillip Ramos MD) Allergic rhinitis Bipolar 2 disorder Chronic low back pain Depression, major, recurrent Dystrophic nail Essential hypertension Gait instability History of colonic polyps Impaired fasting glucose Laryngospasm Mixed hyperlipidemia PERES (nonalcoholic steatohepatitis) Osteochondritis of tibial tuberosity Osteopenia Overweight Primary osteoarthritis involving multiple joints Restless leg syndrome Tinea unguium Urinary incontinence spinal fusion right LAMAR 2016 (lateral scar) PT-OP-B Current Condition Start: 05/29/24 16:33 Freq: Status: Active Protocol: Document 07/09/24 09:02 SAK (Rec: 07/09/24 10:00 SAK [id number]) Current Condition History of Current Condition Onset Date 05/04/24 Current Complaints left hip and LBP History of Current Condition GLF due to slick board, bruising left posterior thigh, states fell on left buttock and slid. Went to ER, diagnosed as strain. Iced first 24 hours, then started alternating ice and heat. Then Epsom salt baths thinks made swelling worse. Thinks swelling gone now. Pain persists and reports back pain has worsened (history of LBP with spinal fusion) Spinal fusion L45 October 2021, pain now occasional with bending over without correct body mechanics , has worsened since fall; more frequently. Most pain with sit to stand. Buttock pain constant. For exercises walks around town for errands, yesterday went back to rowing with a group but had buttock pain. Has an exercise machine dual reclined rower and reclined cycle. No new N/T, has chronic numbness left toes , a couple right toes. Prior Treatments and Tests spinal fusion 2021 no imaging after fall PT-OP-C Subjective Start: 05/29/24 16:33 Freq: Status: Active Protocol: Document 07/24/24 11:31 SP (Rec: 07/24/24 12:27 SP [id number]) OP-PT Subjective Patient Comments Patient Comments Pt reports feeling better since her fall forward downtown and face plant to ground , did some rowing on water this am (4 persons per boat) 30 min, rest then return . Has follow up appt with dentist see if repair on front teeth mouth guard fit. Has an appt with back phsician to check her spinal stimulator. PT-OP-G Mobility & Gait Start: 05/29/24 16:33 Freq: Status: Active Protocol: Document 05/30/24 11:32 SAK (Rec: 06/04/24 15:09 SAK [id number]) OP Gait Assessment Gait Gait Assistance Required: Independent Assistive Devices Assistive Device None Gait Deviations General Gait Pattern Antalgic Stair Climbing Evaluation Technique/Endurance Stair Climbing Direction Ascend and Descend Stair Climbing Technique Step to Step PT-OP-H Neuro Start: 05/29/24 16:33 Freq: Status: Active Protocol: Document 05/30/24 11:32 SAK (Rec: 06/04/24 15:09 SAK [id number]) Sensation Evaluation Gross Sensation Gross Sensation WNL PT-OP-J Posture/Palpation/Skin Start: 05/29/24 16:33 Freq: Status: Active Protocol: Document 05/30/24 11:32 SAK (Rec: 05/30/24 12:13 SAK [id number]) Posture Evaluation Position Standing Head/C-Spine Posture Forward Head T-Spine Posture Increased Kyphosis L-Spine Posture Increased Lordosis Scapula Posture (L) Protracted,(R) Protracted Arm Posture (L) Internally Rotated Pelvis Posture Anteriorly Tilted Palpation Assessment Location right anterior thigh Palpation Findings Soft Tissue Tightness left buttock, hamstring Palpation Findings Soft Tissue Tightness, Tenderness l/s Palpation Findings Soft Tissue Tightness,Muscle Guarding Palpation Details right greater than left Skin Assessment Edema Assessment LEs Comments no significant edema noted Other Assessments Skin Assessment Comments no bruising PT-OP-K Range of Motion Start: 05/29/24 16:33 Freq: Status: Active Protocol: Document 05/30/24 11:32 SAK (Rec: 06/04/24 15:09 [facility] [id number]) Lumbar Spine Range of Motion Lumbar Spine Active Flexion 45 Extension 10 Rotation Left 15 Rotation Right 15 Lateral Flexion Left 20 Lateral Flexion Right 20 ROM Limitations Soft Tissue Tightness,Pain Hip Goniometric Range of Motion Hip Left Flexion w/Knee Flexed 95 Straight Leg Raise 65 Extension 5 Abduction 25 Internal Rotation 15 External Rotation 60 Right Hip ROM WFL Yes Hip ROM Limitations Hip ROM Limitations Soft Tissue Tightness,Pain Knee Goniometric Range of Motion Knee jered Knee ROM WFL Yes PT-OP-M Strength Start: 05/29/24 16:33 Freq: Status: Active Protocol: Document 05/30/24 11:32 [facility] (Rec: 05/30/24 12:13 [facility] [id number]) Trunk Strength Trunk Manual Muscle Testing Flexion 3+ Fair+ Extension 3- Fair- Hip Strength Hip Manual Muscle Testing Left Flexion (L2) 4- Good- Extension (S1) 3+ Fair+ Abduction 4 Good Adduction 4- Good- External Rotation 4- Good- Internal Rotation 4 Good Right Flexion (L2) 4- Good- Extension (S1) 3+ Fair+ Abduction 4 Good Adduction 4- Good- External Rotation 4- Good- Internal Rotation 4 Good Knee Strength Knee Manual Muscle Testing Left Flexion (S2) 3+ Fair+ Extension (L3) 4- Good- Comments pain with resisted flexion Right Flexion (S2) 5 Normal Extension (L3) 4- Good- Ankle/Foot Strength Ankle and Foot Manual Muscle Testing Left Dorsiflexion (L4) 4+ Good+ Plantarflexion (S1) 3+ Fair+ Right Dorsiflexion (L4) 4- Good- Plantarflexion (S1) 3+ Fair+ PT-OP-Q Treatments Start: 05/29/24 16:33 Freq: Status: Active Protocol: Document 07/24/24 11:31 SP (Rec: 07/24/24 12:27 SP [id number]) Cardio Equipment Recumbent Stepper (Sci-Fit) Duration (Minutes) 10 Resistance 3>4> 5 Seat Position 7- 1.47miles Other cues for push through heels, BUE &LEs entire 10min, 1.35 mi Therapeutic Activity Therapeutic Activity stepping up on 16 box Name simulation getting out/in boat for rowing, on horse hoping do soon Comments Heavy BUE use posts vs 1 post and outside [employer] ACCOUNT ASSISTANT support pull from, reports does need higher support to pull from. Gait Training Gait Activity dynamic gait Description HTs, backward stepping with Metronome Device Used 0 Level of Assistance S Surface tile Distance/Duration 50 ft 3 laps fwd, 20 ft 3 laps bwd Comments 93 bpm fwd, 85 bpm backward stairs Device Used jered rails CGA Surface 4 stairs (6) x 4 laps no HR Treatment Focus glut activation, no twisting of pelvis Comments cued slow control, wt shift over advanced LE and increase TALON, more stability control descent no UE support, cue glut activation Neuro Re-Education Treatment Balance Activities porfirio stepping Details fwd, lateral Equipment 6 hurdles Reps/Duration 2 laps each direction Comments good form, only 2 light toe touch porfirio, no LOB. PT-OP-R Modalities Start: 05/29/24 16:33 Freq: Status: Active Protocol: Document 07/09/24 09:02 SAK (Rec: 07/09/24 10:00 SAK [id number]) Hot Pack/Cold Pack Treatment Cold Pack Location right ant hip, L HS Patient Position Hooklying Patient Tolerance Good PT-OP-T Assessment and Plan Start: 05/29/24 16:33 Freq: Status: Active Protocol: Document 07/24/24 11:31 SP (Rec: 07/24/24 12:27 SP [id number]) Physical Therapy Assessment Goals Three Impairment antalgic gait Senior Living Goal (LTG) Patient will be able to ambulate on level surfaces and stairs without limp and with ability to alternate LE's on stairs 06/27/24: good goal progress, some limp still evident, pt re -injured hamstring this week with quick movement 07/24/24: GOAL MET: receiprocal steps no UE support 4 x4 sets LTG Duration 07/28/24 GOAL MET 07/24/24 Four Impairment soft tissue tightness posterior left thigh, buttock Impairment Activities-specific balance confidence (ABC) Scale 24% [facility] Goal (LTG) Improve soft tissue mobility to WNL to promote full active use of left LE 07/24/24: progression incorporating ball onwall STMs to front and lateral R hip, weakness stepping out of boat to dock. LTG Duration 07/28/24 progressing 07/24/24 Two Impairment Lower extremity functional scale score 43/80, Oswestry 20 % Impairment Patient unable to go hiking safely Customer Care Team Coach Goal (LTG) Improve LEFS score to at least 70% and Oswestry to no greater than 10% as measure of improved low back and left LE function 06/27/24: LEFS increased to 63% , Oswestry decreased to 14%; both improved LTG Duration 07/28/24 One Impairment right posterior thigh, buttock , and LBP pain 4-8/10 Impairment Dynamic gait index 54% Customer Care Team Coach Goal (LTG) Decrease pain to no greater than 2/10 with all usual activities 06/27/26: good goal progress reporting pain 2/10 on form today but has reported increase with activity and difficulty lifting right leg. 07/24/24: Still right hip pain gettign out of boat 210 and needs use heavy UE support to lift self and other to support when needed. LTG Duration 07/28/24 progression 07/24/24 Assessment Summary Assessment Pt improved progression dynamic mobility gait and balance this tx with cues for TA and rhomboid facilitation for midline stability and increase TALON and pacing gait able to increase kailyn ( metronome 93 fwd, 85 bwd) with head turns. Time spent ascend /descend stairs doing well no UE support, noted weakness ascend large 16 step to assimulate with UE support getting out of row boat for decreased outside assist from teammates, cued glut drive. Physical Therapy Plan Frequency and Duration Frequency of Treatment 2x/Week Duration of treatment (weeks) 8 Plan of Care Start Date 05/30/24 Plan of Care End Date 08/03/24 Therapeutic Interventions Therapeutic Interventions Gait Training,Home Exercise Program,Manual Therapy, Neuromuscular Re-education, Patient/Caregiver Education, Self-Care/Home Management,Soft Tissue Mobilization,Taping, Therapeutic Activities, Therapeutic Exercises Modalities Cold Pack/Ice Massage,Electric Stimulation,Hot Packs, Infrared Therapy,Iontophoresis ,Ultrasound Next Visit Focus/Plan Next Note Type Treatment Note Next Visit Plan Recheck sport cord, will bring provided TB. POC: Continue manual techniques, core stab, progression of strengthening, flexibility, gait training.
--- NOTE | 2024-07-26 08:25 | PT.OPPOC ---
Physical, Occupational & Speech Therapy At [facility] Current Diagnoses Other chronic pain (07/26/24) Low back pain, unspecified (07/26/24) Strain of muscle, fascia and tendon of the posterior muscle group at thigh level, left thigh, initial encounter (07/26/24) Visit Care Team Role Provider Type Phillip Ramos MD Attending Provider Physician Family Provider Primary Care Provider Referring Provider Specialty: Internal Medicine Address: [address] [place] [address], [facility] Email: [email or web address] Plan Of Care PT-OP-B Current Condition Start: 05/29/24 16:33 Freq: Status: Active Protocol: Document 07/26/24 08:09 SAK (Rec: 07/26/24 09:02 SAK [id number]) Current Condition History of Current Condition Onset Date 05/04/24 Current Complaints left hip and LBP History of Current Condition GLF due to slick board, bruising left posterior thigh, states fell on left buttock and slid. Went to ER, diagnosed as strain. Iced first 24 hours, then started alternating ice and heat. Then Epsom salt baths thinks made swelling worse. Thinks swelling gone now. Pain persists and reports back pain has worsened (history of LBP with spinal fusion) Spinal fusion L45 October 2021, pain now occasional with bending over without correct body mechanics , has worsened since fall; more frequently. Most pain with sit to stand. Buttock pain constant. For exercises walks around town for errands, yesterday went back to rowing with a group but had buttock pain. Has an exercise machine dual reclined rower and reclined cycle. No new N/T, has chronic numbness left toes , a couple right toes. Prior Treatments and Tests spinal fusion 2021 no imaging after fall PT-OP-T Assessment and Plan Start: 05/29/24 16:33 Freq: Status: Active Protocol: Document 07/26/24 08:09 SAK (Rec: 07/26/24 09:02 SAK [id number]) Physical Therapy Assessment Goals Three Impairment antalgic gait [facility] Goal (LTG) Patient will be able to ambulate on level surfaces and stairs without limp and with ability to alternate LE's on stairs 06/27/24: good goal progress, some limp still evident, pt re -injured hamstring this week with quick movement 07/24/24: GOAL MET: receiprocal steps no UE support 4 x4 sets LTG Duration 07/28/24 GOAL MET 07/24/24 Four Impairment soft tissue tightness posterior left thigh, buttock Impairment Activities-specific balance confidence (ABC) Scale 24% [facility] Goal (LTG) Improve soft tissue mobility to WNL to promote full active use of left LE 07/24/24: progression incorporating ball onwall STMs to front and lateral R hip, weakness stepping out of boat to dock. LTG Duration 07/28/24 progressing 07/24/24 Two Impairment Lower extremity functional scale score 43/80, Oswestry 20 % Impairment Patient unable to go hiking safely Saw Cleaner Goal (LTG) Improve LEFS score to at least 70% and Oswestry to no greater than 10% as measure of improved low back and left LE function 06/27/24: LEFS increased to 63% , Oswestry decreased to 14%; both improved 07/26/24: LTG Duration 07/28/24 One Impairment right posterior thigh, buttock , and LBP pain 4-8/10 [facility] Goal (LTG) Decrease pain to no greater than 2/10 with all usual activities 06/27/26: good goal progress reporting pain 2/10 on form today but has reported increase with activity and difficulty lifting right leg. 07/24/24: Still right hip pain gettign out of boat 2/10 and needs use heavy UE support to lift self and other to support when needed. LTG Duration 07/28/24 progression 07/24/24 Assessment Summary Assessment Treatment focused on gluteal activation, patient has difficulty activating in standing, functional position, feels more easily with supine bridge. Improved with focus, verbal and tactile cues. Gluteal weakness and asymmetry highly contributory to patient dysfunction. Making progress toward goals but would benefit from further skilled PT. Physical Therapy Plan Frequency and Duration Frequency of Treatment 2x/Week Duration of treatment (weeks) 4 Plan of Care Start Date 07/26/24 Plan of Care End Date 08/26/24 Therapeutic Interventions Therapeutic Interventions Gait Training,Home Exercise Program,Manual Therapy, Neuromuscular Re-education, Patient/Caregiver Education, Self-Care/Home Management,Soft Tissue Mobilization,Taping, Therapeutic Activities, Therapeutic Exercises Modalities Cold Pack/Ice Massage,Electric Stimulation,Hot Packs, Infrared Therapy,Iontophoresis ,Ultrasound Next Visit Focus/Plan Next Note Type Treatment Note Next Visit Plan Continue strengthening, manual , core stab, progression functional gluteal activation activities. Plan of Care Dates Plan of Care Start Date 07/26/24 Plan of Care End Date 08/26/24 Electronically Signed by: Gabriela Giles, PT 07/29/24 1928 If you are in agreement with this Plan of Care, please return a signed and dated copy. I have reviewed this Plan of Care and certify that the skilled therapy services above are required to meet the patient?s needs. Physician Signature Date Printed Name and Credentials Clinical Instructor Signature Printed Name and Credentials
--- NOTE | 2024-07-26 08:25 | PT.OTRE ---
Current Diagnoses Other chronic pain (07/26/24) Low back pain, unspecified (07/26/24) Strain of muscle, fascia and tendon of the posterior muscle group at thigh level, left thigh, initial encounter (07/26/24) Past Medical History (Last Reviewed 07/17/24 @ 11:17 by Phillip Ramos MD) Allergic rhinitis Bipolar 2 disorder Chronic insomnia Chronic low back pain Depression, major, recurrent Dystrophic nail Essential hypertension Gait instability History of colonic polyps Impaired fasting glucose IPMN (intraductal papillary mucinous neoplasm) Laryngospasm Mixed hyperlipidemia PERES (nonalcoholic steatohepatitis) Osteochondritis of tibial tuberosity Osteopenia Overweight Primary osteoarthritis involving multiple joints Restless leg syndrome Tinea unguium Urinary incontinence Visit Care Team Role Provider Type Phillip Ramos MD Attending Provider Physician Family Provider Primary Care Provider Referring Provider Specialty: Internal Medicine Address: [address] [place] [address] Email: [email or web address] Physical Therapy Re-Evaluation PT-OP-A Visit Information Start: 05/29/24 16:33 Freq: Status: Active Protocol: Document 07/26/24 08:09 [facility]AK (Rec: 07/26/24 09:02 [facility] [id number]) Out-Patient Physical Therapy Visit Information Visit Information Visit Type Treatment Note Visit Start Time 08:18 Visit Stop Time 08:58 Visit Number 14(7/10 visits with PN) Number of LICENSED FUNERAL DIRECTOR AND EMBALMER Visits 0 Precautions Precautions Medical History (Reviewed @ 10:50 by Phillip Ramos MD) Allergic rhinitis Bipolar 2 disorder Chronic low back pain Depression, major, recurrent Dystrophic nail Essential hypertension Gait instability History of colonic polyps Impaired fasting glucose Laryngospasm Mixed hyperlipidemia PERES (nonalcoholic steatohepatitis) Osteochondritis of tibial tuberosity Osteopenia Overweight Primary osteoarthritis involving multiple joints Restless leg syndrome Tinea unguium Urinary incontinence spinal fusion right LAMAR 2016 (lateral scar) PT-OP-B Current Condition Start: 05/29/24 16:33 Freq: Status: Active Protocol: Document 07/26/24 08:09 SAK (Rec: 07/26/24 09:02 SAK [id number]) Current Condition History of Current Condition Onset Date 05/04/24 Current Complaints left hip and LBP History of Current Condition GLF due to slick board, bruising left posterior thigh, states fell on left buttock and slid. Went to ER, diagnosed as strain. Iced first 24 hours, then started alternating ice and heat. Then Epsom salt baths thinks made swelling worse. Thinks swelling gone now. Pain persists and reports back pain has worsened (history of LBP with spinal fusion) Spinal fusion L45 October 2021, pain now occasional with bending over without correct body mechanics , has worsened since fall; more frequently. Most pain with sit to stand. Buttock pain constant. For exercises walks around town for errands, yesterday went back to rowing with a group but had buttock pain. Has an exercise machine dual reclined rower and reclined cycle. No new N/T, has chronic numbness left toes , a couple right toes. Prior Treatments and Tests spinal fusion 2021 no imaging after fall PT-OP-C Subjective Start: 05/29/24 16:33 Freq: Status: Active Protocol: Document 07/26/24 08:09 SAK (Rec: 07/26/24 09:02 [facility] [id number]) OP-PT Subjective Patient Comments Patient Comments Had CT scan pelvis at [facility] yesterday, sitting makes the pain worse. Hasn't Used cushion while rowing. PT-OP-G Mobility & Gait Start: 05/29/24 16:33 Freq: Status: Active Protocol: Document 05/30/24 11:32 SAK (Rec: 06/04/24 15:09 [facility] [id number]) OP Gait Assessment Gait Gait Assistance Required: Independent Assistive Devices Assistive Device None Gait Deviations General Gait Pattern Antalgic Stair Climbing Evaluation Technique/Endurance Stair Climbing Direction Ascend and Descend Stair Climbing Technique Step to Step PT-OP-H Neuro Start: 05/29/24 16:33 Freq: Status: Active Protocol: Document 05/30/24 11:32 SAK (Rec: 06/04/24 15:09 [facility] [id number]) Sensation Evaluation Gross Sensation Gross Sensation WNL PT-OP-J Posture/Palpation/Skin Start: 05/29/24 16:33 Freq: Status: Active Protocol: Document 05/30/24 11:32 SAK (Rec: 05/30/24 12:13 [facility] [id number]) Posture Evaluation Position Standing Head/C-Spine Posture Forward Head T-Spine Posture Increased Kyphosis L-Spine Posture Increased Lordosis Scapula Posture (L) Protracted,(R) Protracted Arm Posture (L) Internally Rotated Pelvis Posture Anteriorly Tilted Palpation Assessment Location right anterior thigh Palpation Findings Soft Tissue Tightness left buttock, hamstring Palpation Findings Soft Tissue Tightness, Tenderness l/s Palpation Findings Soft Tissue Tightness,Muscle Guarding Palpation Details right greater than left Skin Assessment Edema Assessment LEs Comments no significant edema noted Other Assessments Skin Assessment Comments no bruising PT-OP-K Range of Motion Start: 05/29/24 16:33 Freq: Status: Active Protocol: Document 05/30/24 11:32 [facility] (Rec: 06/04/24 15:09 [facility] [id number]) Lumbar Spine Range of Motion Lumbar Spine Active Flexion 45 Extension 10 Rotation Left 15 Rotation Right 15 Lateral Flexion Left 20 Lateral Flexion Right 20 ROM Limitations Soft Tissue Tightness,Pain Hip Goniometric Range of Motion Hip Measured in Degrees Left Flexion w/Knee Flexed 95 Straight Leg Raise 65 Extension 5 Abduction 25 Internal Rotation 15 External Rotation 60 Right Hip ROM WFL Yes Hip ROM Limitations Hip ROM Limitations Soft Tissue Tightness,Pain Knee Goniometric Range of Motion Knee Measured in Degrees jered Knee ROM WFL Yes PT-OP-M Strength Start: 05/29/24 16:33 Freq: Status: Active Protocol: Document 05/30/24 11:32 [facility] (Rec: 05/30/24 12:13 [facility] [id number]) Trunk Strength Trunk Manual Muscle Testing Flexion 3+ Fair+ Extension 3- Fair- Hip Strength Hip Manual Muscle Testing Left Flexion (L2) 4- Good- Extension (S1) 3+ Fair+ Abduction 4 Good Adduction 4- Good- External Rotation 4- Good- Internal Rotation 4 Good Right Flexion (L2) 4- Good- Extension (S1) 3+ Fair+ Abduction 4 Good Adduction 4- Good- External Rotation 4- Good- Internal Rotation 4 Good Knee Strength Knee Manual Muscle Testing Left Flexion (S2) 3+ Fair+ Extension (L3) 4- Good- Comments pain with resisted flexion Right Flexion (S2) 5 Normal Extension (L3) 4- Good- Ankle/Foot Strength Ankle and Foot Manual Muscle Testing Left Dorsiflexion (L4) 4+ Good+ Plantarflexion (S1) 3+ Fair+ Right Dorsiflexion (L4) 4- Good- Plantarflexion (S1) 3+ Fair+ PT-OP-Q Treatments Start: 05/29/24 16:33 Freq: Status: Active Protocol: Document 07/26/24 08:09 [facility] (Rec: 07/26/24 09:02 [facility] [id number]) Cardio Equipment Elliptical Duration (Minutes) 5 Resistance 1 Treadmill Duration (Minutes) 6 Speed 2-2.7 Incline 0 Therapeutic Exercises Supine Exercises bridge Supine Exercise Name segmental jered, uni Side bilateral Resistance R weaker than L Uni Reps/Minutes 5 SH x10 jered, 8 reps each Uni Comments cues for pain-free ROM, foot little closer for glut decr HS recruitment Standing Exercises glut sets Reps/Minutes 10x jered, 5x unil partial step-up Standing Exercise Name cue gluteal activation, 90% wt shift to upper leg Side bilateral Equipment Used 8 box, parallel bars Reps/Minutes 5x5 x 2 sets Comments noted more gluteal activation on right quad stretch Equipment Used chair Reps/Minutes 1x60 jered Gait Training Gait Activity stairs Device Used jered rails CGA Surface 6 stairs (6) x 2 laps no HR Treatment Focus glut activation, no twisting of pelvis Comments cued slow control, wt shift over advanced LE and increase TALON, more stability control descent no UE support, cue glut activation PT-OP-R Modalities Start: 05/29/24 16:33 Freq: Status: Active Protocol: Document 07/09/24 09:02 [facility] (Rec: 07/09/24 10:00 [facility] [id number]) Hot Pack/Cold Pack Treatment Cold Pack Location right ant hip, L HS Patient Position Hooklying Patient Tolerance Good PT-OP-T Assessment and Plan Start: 05/29/24 16:33 Freq: Status: Active Protocol: Document 07/26/24 08:09 [facility] (Rec: 07/26/24 09:02 [facility] [id number]) Physical Therapy Assessment Goals Three Impairment antalgic gait Senior Care Goal (LTG) Patient will be able to ambulate on level surfaces and stairs without limp and with ability to alternate LE's on stairs 06/27/24: good goal progress, some limp still evident, pt re -injured hamstring this week with quick movement 07/24/24: GOAL MET: receiprocal steps no UE support 4 x4 sets LTG Duration 07/28/24 GOAL MET 07/24/24 Four Impairment soft tissue tightness posterior left thigh, buttock Impairment Activities-specific balance confidence (ABC) Scale 24% Senior Care Goal (LTG) Improve soft tissue mobility to WNL to promote full active use of left LE 07/24/24: progression incorporating ball onwall STMs to front and lateral R hip, weakness stepping out of boat to dock. LTG Duration 07/28/24 progressing 07/24/24 Two Impairment Lower extremity functional scale score 43/80, Oswestry 20 % Impairment Patient unable to go hiking safely Senior Care Goal (LTG) Improve LEFS score to at least 70% and Oswestry to no greater than 10% as measure of improved low back and left LE function 06/27/24: LEFS increased to 63% , Oswestry decreased to 14%; both improved 07/26/24: LTG Duration 07/28/24 One Impairment right posterior thigh, buttock , and LBP pain 4-8/10 Watch Assembly Inspector Goal (LTG) Decrease pain to no greater than 2/10 with all usual activities 06/27/26: good goal progress reporting pain 2/10 on form today but has reported increase with activity and difficulty lifting right leg. 07/24/24: Still right hip pain gettign out of boat 2/10 and needs use heavy UE support to lift self and other to support when needed. LTG Duration 07/28/24 progression 07/24/24 Assessment Summary Assessment Treatment focused on gluteal activation, patient has difficulty activating in standing, functional position, feels more easily with supine bridge. Improved with focus, verbal and tactile cues. Gluteal weakness and asymmetry highly contributory to patient dysfunction. Making progress toward goals but would benefit from further skilled PT. Physical Therapy Plan Frequency and Duration Frequency of Treatment 2x/Week Duration of treatment (weeks) 4 Plan of Care Start Date 07/26/24 Plan of Care End Date 08/26/24 Therapeutic Interventions Therapeutic Interventions Gait Training,Home Exercise Program,Manual Therapy, Neuromuscular Re-education, Patient/Caregiver Education, Self-Care/Home Management,Soft Tissue Mobilization,Taping, Therapeutic Activities, Therapeutic Exercises Modalities Cold Pack/Ice Massage,Electric Stimulation,Hot Packs, Infrared Therapy,Iontophoresis ,Ultrasound Next Visit Focus/Plan Next Note Type Treatment Note Next Visit Plan Continue strengthening, manual , core stab, progression functional gluteal activation activities.
--- NOTE | 2024-07-30 11:30 | PT.OTN ---
Current Diagnoses Other chronic pain (07/30/24) Low back pain, unspecified (07/30/24) Strain of muscle, fascia and tendon of the posterior muscle group at thigh level, left thigh, initial encounter (07/30/24) Physical Therapy Treatment Note PT-OP-A Visit Information Start: 05/29/24 16:33 Freq: Status: Active Protocol: Document 07/30/24 10:47 [facility] (Rec: 07/30/24 11:32 [facility] [id number]) Out-Patient Physical Therapy Visit Information Visit Information Visit Type Treatment Note Visit Start Time 10:47 Visit Stop Time 11:30 Visit Number 15 (8/10 visits with PN) Number of BOTTOM CEMENTER Visits 1 Precautions Precautions Medical History (Reviewed @ 10:50 by Phillip Ramos MD) Allergic rhinitis Bipolar 2 disorder Chronic low back pain Depression, major, recurrent Dystrophic nail Essential hypertension Gait instability History of colonic polyps Impaired fasting glucose Laryngospasm Mixed hyperlipidemia PERES (nonalcoholic steatohepatitis) Osteochondritis of tibial tuberosity Osteopenia Overweight Primary osteoarthritis involving multiple joints Restless leg syndrome Tinea unguium Urinary incontinence spinal fusion right LAMAR 2016 (lateral scar) PT-OP-B Current Condition Start: 05/29/24 16:33 Freq: Status: Active Protocol: Document 07/26/24 08:09 [facility] (Rec: 07/26/24 09:02 [facility] [id number]) Current Condition History of Current Condition Onset Date 05/04/24 Current Complaints left hip and LBP History of Current Condition GLF due to slick board, bruising left posterior thigh, states fell on left buttock and slid. Went to ER, diagnosed as strain. Iced first 24 hours, then started alternating ice and heat. Then Epsom salt baths thinks made swelling worse. Thinks swelling gone now. Pain persists and reports back pain has worsened (history of LBP with spinal fusion) Spinal fusion L45 October 2021, pain now occasional with bending over without correct body mechanics , has worsened since fall; more frequently. Most pain with sit to stand. Buttock pain constant. For exercises walks around town for errands, yesterday went back to rowing with a group but had buttock pain. Has an exercise machine dual reclined rower and reclined cycle. No new N/T, has chronic numbness left toes , a couple right toes. Prior Treatments and Tests spinal fusion 2021 no imaging after fall PT-OP-C Subjective Start: 05/29/24 16:33 Freq: Status: Active Protocol: Document 07/30/24 10:47 [facility] (Rec: 07/30/24 11:32 [facility] [id number]) OP-PT Subjective Patient Comments Patient Comments Pt reports was working on glut engagement on stairs. Has been walking [employer] uneven road to return to trails and slight SOB so wants to start incorporating daily. She PT-OP-G Mobility & Gait Start: 05/29/24 16:33 Freq: Status: Active Protocol: Document 05/30/24 11:32 [facility] (Rec: 06/04/24 15:09 [facility] [id number]) OP Gait Assessment Gait Gait Assistance Required: Independent Assistive Devices Assistive Device None Gait Deviations General Gait Pattern Antalgic Stair Climbing Evaluation Technique/Endurance Stair Climbing Direction Ascend and Descend Stair Climbing Technique Step to Step PT-OP-H Neuro Start: 05/29/24 16:33 Freq: Status: Active Protocol: Document 05/30/24 11:32 [facility] (Rec: 06/04/24 15:09 [facility] [id number]) Sensation Evaluation Gross Sensation Gross Sensation WNL PT-OP-J Posture/Palpation/Skin Start: 05/29/24 16:33 Freq: Status: Active Protocol: Document 05/30/24 11:32 [facility] (Rec: 05/30/24 12:13 [facility] [id number]) Posture Evaluation Position Standing Head/C-Spine Posture Forward Head T-Spine Posture Increased Kyphosis L-Spine Posture Increased Lordosis Scapula Posture (L) Protracted,(R) Protracted Arm Posture (L) Internally Rotated Pelvis Posture Anteriorly Tilted Palpation Assessment Location right anterior thigh Palpation Findings Soft Tissue Tightness left buttock, hamstring Palpation Findings Soft Tissue Tightness, Tenderness l/s Palpation Findings Soft Tissue Tightness,Muscle Guarding Palpation Details right greater than left Skin Assessment Edema Assessment LEs Comments no significant edema noted Other Assessments Skin Assessment Comments no bruising PT-OP-K Range of Motion Start: 05/29/24 16:33 Freq: Status: Active Protocol: Document 05/30/24 11:32 [facility] (Rec: 06/04/24 15:09 [facility] [id number]) Lumbar Spine Range of Motion Lumbar Spine Active Flexion 45 Extension 10 Rotation Left 15 Rotation Right 15 Lateral Flexion Left 20 Lateral Flexion Right 20 ROM Limitations Soft Tissue Tightness,Pain Hip Goniometric Range of Motion Hip Left Flexion w/Knee Flexed 95 Straight Leg Raise 65 Extension 5 Abduction 25 Internal Rotation 15 External Rotation 60 Right Hip ROM WFL Yes Hip ROM Limitations Hip ROM Limitations Soft Tissue Tightness,Pain Knee Goniometric Range of Motion Knee jered Knee ROM WFL Yes PT-OP-M Strength Start: 05/29/24 16:33 Freq: Status: Active Protocol: Document 05/30/24 11:32 [facility] (Rec: 05/30/24 12:13 [facility] [id number]) Trunk Strength Trunk Manual Muscle Testing Flexion 3+ Fair+ Extension 3- Fair- Hip Strength Hip Manual Muscle Testing Left Flexion (L2) 4- Good- Extension (S1) 3+ Fair+ Abduction 4 Good Adduction 4- Good- External Rotation 4- Good- Internal Rotation 4 Good Right Flexion (L2) 4- Good- Extension (S1) 3+ Fair+ Abduction 4 Good Adduction 4- Good- External Rotation 4- Good- Internal Rotation 4 Good Knee Strength Knee Manual Muscle Testing Left Flexion (S2) 3+ Fair+ Extension (L3) 4- Good- Comments pain with resisted flexion Right Flexion (S2) 5 Normal Extension (L3) 4- Good- Ankle/Foot Strength Ankle and Foot Manual Muscle Testing Left Dorsiflexion (L4) 4+ Good+ Plantarflexion (S1) 3+ Fair+ Right Dorsiflexion (L4) 4- Good- Plantarflexion (S1) 3+ Fair+ PT-OP-Q Treatments Start: 05/29/24 16:33 Freq: Status: Active Protocol: Document 07/30/24 10:47 SP (Rec: 07/30/24 11:32 SP [id number]) Cardio Equipment Treadmill Duration (Minutes) 7 Speed 2-2.6 Incline 0 Other cued progress arm swing, Df softer heel strike, longer stride Therapeutic Exercises Supine Exercises Vinnie stretch Supine Exercise Name self stretch after SL bridge Side bilateral Reps/Minutes 60 SH Comments good feedback hip flexor stretch, cued knee flexion hold bridge Supine Exercise Name unilateral Side bilateral Resistance R weaker than L Uni Equipment Used BOTTOM CEMENTER hand target 2 away from elevate leg Reps/Minutes 8 reps x2 sets each LE Comments cues for pain-free ROM, foot little closer for glut decr HS recruitment Standing Exercises HS stretch Standing Exercise Name self stretch hip hinge Side bilateral Resistance foot propped on step, rail support Reps/Minutes 30 SH Comments good form. stationary lunges Standing Exercise Name trialed in PT and added to HEP with HO Side bilateral Equipment Used rail contact (outside stairs) Reps/Minutes 5 reps each side partial step-up Standing Exercise Name cue gluteal activation, 90% wt shift to upper leg Side bilateral Equipment Used 4 box no UE support, 8>6 Step with 1 HR Reps/Minutes 10 reps, 8x3 x 2 sets Comments noted more gluteal activation on left 07/30 Gait Training Gait Activity stairs Description R weaker than L ascending Device Used jered rails CGA Surface 6 stairs (4) x 4 laps hands hover rail Treatment Focus glut activation, no twisting of pelvis Comments cued wt shift over advanced LE and increase TALON, more stability control descent no UE support, cue glut activation ascend, occ 1st 3 sets L UE contact RLE WB, no UE last set PT-OP-R Modalities Start: 05/29/24 16:33 Freq: Status: Active Protocol: Document 07/09/24 09:02 [facility] (Rec: 07/09/24 10:00 [facility] [id number]) Hot Pack/Cold Pack Treatment Cold Pack Location right ant hip, L HS Patient Position Hooklying Patient Tolerance Good PT-OP-T Assessment and Plan Start: 05/29/24 16:33 Freq: Status: Active Protocol: Document 07/30/24 10:47 [facility] (Rec: 07/30/24 11:32 SP [id number]) Physical Therapy Assessment Goals Three Impairment antalgic gait Upholstery Parts Sorter Goal (LTG) Patient will be able to ambulate on level surfaces and stairs without limp and with ability to alternate LE's on stairs 06/27/24: good goal progress, some limp still evident, pt re -injured hamstring this week with quick movement 07/24/24: GOAL MET: receiprocal steps no UE support 4 x4 sets LTG Duration 07/28/24 GOAL MET 07/24/24 Four Impairment soft tissue tightness posterior left thigh, buttock Impairment Activities-specific balance confidence (ABC) Scale 24% Senior Living Goal (LTG) Improve soft tissue mobility to WNL to promote full active use of left LE 07/24/24: progression incorporating ball onwall STMs to front and lateral R hip, weakness stepping out of boat to dock. LTG Duration 07/28/24 progressing 07/24/24 Two Impairment Lower extremity functional scale score 43/80, Oswestry 20 % Impairment Patient unable to go hiking safely Upholstery Parts Sorter Goal (LTG) Improve LEFS score to at least 70% and Oswestry to no greater than 10% as measure of improved low back and left LE function 06/27/24: LEFS increased to 63% , Oswestry decreased to 14%; both improved 07/26/24: LTG Duration 07/28/24 One Impairment right posterior thigh, buttock , and LBP pain 4-8/10 Impairment Dynamic gait index 54% Upholstery Parts Sorter Goal (LTG) Decrease pain to no greater than 2/10 with all usual activities 06/27/26: good goal progress reporting pain 2/10 on form today but has reported increase with activity and difficulty lifting right leg. 07/24/24: Still right hip pain gettign out of boat 2/10 and needs use heavy UE support to lift self and other to support when needed. LTG Duration 07/28/24 progression 07/24/24 Assessment Summary Assessment Pt improved glut effort during SL bridge and mini lunges today, improved receiprocal stepping, hand glide rail onL during RLE ascending by end tx to support return to getting on horse. . Good self stretching end tx for tiring/ soreness prevention recovery. Physical Therapy Plan Frequency and Duration Frequency of Treatment 2x/Week Duration of treatment (weeks) 4 Plan of Care Start Date 07/26/24 Plan of Care End Date 08/26/24 Therapeutic Interventions Therapeutic Interventions Gait Training,Home Exercise Program,Manual Therapy, Neuromuscular Re-education, Patient/Caregiver Education, Self-Care/Home Management,Soft Tissue Mobilization,Taping, Therapeutic Activities, Therapeutic Exercises Modalities Cold Pack/Ice Massage,Electric Stimulation,Hot Packs, Infrared Therapy,Iontophoresis ,Ultrasound Next Visit Focus/Plan Next Note Type Treatment Note Next Visit Plan Continue strengthening, manual , core stab, progression functional gluteal activation activities.
--- NOTE | 2024-08-01 11:02 | PT-OP ANOTE ---
DNS. Called and LVM.
--- NOTE | 2024-08-07 16:39 | PT.OTN ---
Current Diagnoses Other chronic pain (08/07/24) Low back pain, unspecified (08/07/24) Strain of muscle, fascia and tendon of the posterior muscle group at thigh level, left thigh, initial encounter (08/07/24) Physical Therapy Treatment Note PT-OP-A Visit Information Start: 05/29/24 16:33 Freq: Status: Active Protocol: Document 08/07/24 11:40 SAK (Rec: 08/07/24 12:29 SAK Laptop) Out-Patient Physical Therapy Visit Information Visit Information Visit Type Treatment Note Visit Start Time 11:40 Visit Stop Time 12:30 Visit Number 16 01/09 with PN Number of DIRECTOR OF STUDENT AFFAIRS Visits 0 PT-OP-B Current Condition Start: 05/29/24 16:33 Freq: Status: Active Protocol: Document 07/26/24 08:09 SAK (Rec: 07/26/24 09:02 [facility] [id number]) Current Condition History of Current Condition Onset Date 05/04/24 Current Complaints left hip and LBP History of Current Condition GLF due to slick board, bruising left posterior thigh, states fell on left buttock and slid. Went to ER, diagnosed as strain. Iced first 24 hours, then started alternating ice and heat. Then Epsom salt baths thinks made swelling worse. Thinks swelling gone now. Pain persists and reports back pain has worsened (history of LBP with spinal fusion) Spinal fusion L45 October 2021, pain now occasional with bending over without correct body mechanics , has worsened since fall; more frequently. Most pain with sit to stand. Buttock pain constant. For exercises walks around town for errands, yesterday went back to rowing with a group but had buttock pain. Has an exercise machine dual reclined rower and reclined cycle. No new N/T, has chronic numbness left toes , a couple right toes. Prior Treatments and Tests spinal fusion 2021 no imaging after fall PT-OP-C Subjective Start: 05/29/24 16:33 Freq: Status: Active Protocol: Document 08/07/24 11:40 SAK (Rec: 08/07/24 12:29 SAK Laptop) OP-PT Subjective Patient Comments Patient Comments Still working on gluts, stairs , bridges, one legged bridges. Has 1:45 pelvic ultrasound today. Going to inflammation class at [facility] this afternoon. Still unable to lift right leg easily, soreness in left sit bone and hamstring after prolonged standing. Starting to feel gluteal muscles activate but taking a lot of work. Not sure PT helpful, wants discharge after next scheduled visit. PT-OP-G Mobility & Gait Start: 05/29/24 16:33 Freq: Status: Active Protocol: Document 05/30/24 11:32 SAK (Rec: 06/04/24 15:09 [facility] [id number]) OP Gait Assessment Gait Gait Assistance Required: Independent Assistive Devices Assistive Device None Gait Deviations General Gait Pattern Antalgic Stair Climbing Evaluation Technique/Endurance Stair Climbing Direction Ascend and Descend Stair Climbing Technique Step to Step PT-OP-H Neuro Start: 05/29/24 16:33 Freq: Status: Active Protocol: Document 05/30/24 11:32 SAK (Rec: 06/04/24 15:09 [facility] [id number]) Sensation Evaluation Gross Sensation Gross Sensation WNL PT-OP-J Posture/Palpation/Skin Start: 05/29/24 16:33 Freq: Status: Active Protocol: Document 05/30/24 11:32 SAK (Rec: 05/30/24 12:13 [facility] [id number]) Posture Evaluation Position Standing Head/C-Spine Posture Forward Head T-Spine Posture Increased Kyphosis L-Spine Posture Increased Lordosis Scapula Posture (L) Protracted,(R) Protracted Arm Posture (L) Internally Rotated Pelvis Posture Anteriorly Tilted Palpation Assessment Location right anterior thigh Palpation Findings Soft Tissue Tightness left buttock, hamstring Palpation Findings Soft Tissue Tightness, Tenderness l/s Palpation Findings Soft Tissue Tightness,Muscle Guarding Palpation Details right greater than left Skin Assessment Edema Assessment LEs Comments no significant edema noted Other Assessments Skin Assessment Comments no bruising PT-OP-K Range of Motion Start: 05/29/24 16:33 Freq: Status: Active Protocol: Document 05/30/24 11:32 SAK (Rec: 06/04/24 15:09 [facility] [id number]) Lumbar Spine Range of Motion Lumbar Spine Active Flexion 45 Extension 10 Rotation Left 15 Rotation Right 15 Lateral Flexion Left 20 Lateral Flexion Right 20 ROM Limitations Soft Tissue Tightness,Pain Hip Goniometric Range of Motion Hip Left Flexion w/Knee Flexed 95 Straight Leg Raise 65 Extension 5 Abduction 25 Internal Rotation 15 External Rotation 60 Right Hip ROM WFL Yes Hip ROM Limitations Hip ROM Limitations Soft Tissue Tightness,Pain Knee Goniometric Range of Motion Knee jered Knee ROM WFL Yes PT-OP-M Strength Start: 05/29/24 16:33 Freq: Status: Active Protocol: Document 05/30/24 11:32 SAK (Rec: 05/30/24 12:13 [facility] [id number]) Trunk Strength Trunk Manual Muscle Testing Flexion 3+ Fair+ Extension 3- Fair- Hip Strength Hip Manual Muscle Testing Left Flexion (L2) 4- Good- Extension (S1) 3+ Fair+ Abduction 4 Good Adduction 4- Good- External Rotation 4- Good- Internal Rotation 4 Good Right Flexion (L2) 4- Good- Extension (S1) 3+ Fair+ Abduction 4 Good Adduction 4- Good- External Rotation 4- Good- Internal Rotation 4 Good Knee Strength Knee Manual Muscle Testing Left Flexion (S2) 3+ Fair+ Extension (L3) 4- Good- Comments pain with resisted flexion Right Flexion (S2) 5 Normal Extension (L3) 4- Good- Ankle/Foot Strength Ankle and Foot Manual Muscle Testing Left Dorsiflexion (L4) 4+ Good+ Plantarflexion (S1) 3+ Fair+ Right Dorsiflexion (L4) 4- Good- Plantarflexion (S1) 3+ Fair+ PT-OP-Q Treatments Start: 05/29/24 16:33 Freq: Status: Active Protocol: Document 08/07/24 11:40 [facility] (Rec: 08/07/24 12:29 [facility] Laptop) Cardio Equipment Treadmill Duration (Minutes) 7 Speed 2.4 Incline 0-1 Other vc for postural alignment, soft heel, gluteal activation Manual Therapy Treatment Consent Patient gave verbal consent for manual Yes treatment Soft Tissue Mobilization left HS and piriformis Mobilization Type Myofascial Release,Rolling, Strumming Intensity/Depth gentle to medium Body Position prone, pillow under hips and lower legs Comments tender @ischial tub PT-OP-R Modalities Start: 05/29/24 16:33 Freq: Status: Active Protocol: Document 08/07/24 11:40 [facility] (Rec: 08/08/24 16:33 [facility] Laptop) Hot Pack/Cold Pack Treatment Hot Pack Location Left HS and buttock Patient Position Prone Patient Tolerance Good PT-OP-T Assessment and Plan Start: 05/29/24 16:33 Freq: Status: Active Protocol: Document 08/07/24 11:40 [facility] (Rec: 08/07/24 12:29 [facility] Laptop) Physical Therapy Assessment Impairments Impairments Activity Tolerance,Pain, Strength Goals Three Impairment antalgic gait Nocturnist Physician Goal (LTG) Patient will be able to ambulate on level surfaces and stairs without limp and with ability to alternate LE's on stairs 06/27/24: good goal progress, some limp still evident, pt re -injured hamstring this week with quick movement 07/24/24: GOAL MET: receiprocal steps no UE support 4 x4 sets LTG Duration 07/28/24 GOAL MET 07/24/24 Four Impairment soft tissue tightness posterior left thigh, buttock Impairment . Fdc Goal (LTG) Improve soft tissue mobility to WNL to promote full active use of left LE 07/24/24: progression incorporating ball onwall STMs to front and lateral R hip, weakness stepping out of boat to dock. 08/07/24: no improvement LTG Duration 08/26/24 Two Impairment Lower extremity functional scale score 43/80, Oswestry 20 % Impairment Patient unable to go hiking safely Fdc Goal (LTG) Improve LEFS score to at least 70% and Oswestry to no greater than 10% as measure of improved low back and left LE function 06/27/24: LEFS increased to 63% , Oswestry decreased to 14%; both improved 07/26/24: LTG Duration 08/26/24 One Impairment right posterior thigh, buttock , and LBP pain 4-8/10 Impairment . Nocturnist Physician Goal (LTG) Decrease pain to no greater than 2/10 with all usual activities 06/27/26: good goal progress reporting pain 2/10 on form today but has reported increase with activity and difficulty lifting right leg. 07/24/24: Still right hip pain gettign out of boat 2/10 and needs use heavy UE support to lift self and other to support when needed. LTG Duration 08/26/24 Physical Therapy Plan Frequency and Duration Frequency of Treatment 2x/Week Duration of treatment (weeks) 4 Plan of Care Start Date 07/26/24 Plan of Care End Date 08/26/24 Therapeutic Interventions Therapeutic Interventions Gait Training,Home Exercise Program,Manual Therapy, Neuromuscular Re-education, Patient/Caregiver Education, Self-Care/Home Management,Soft Tissue Mobilization,Taping, Therapeutic Activities, Therapeutic Exercises Modalities Cold Pack/Ice Massage,Electric Stimulation,Hot Packs, Infrared Therapy,Iontophoresis ,Ultrasound Next Visit Focus/Plan Next Note Type Treatment Note Next Visit Plan Assess response to today's treatment, continue manual with increased emphasis piriformis, attachments to ischial tub. Assess pelvic alignment. Consider hip mob. Discharge if patient still requests or consider further PT if inc manual focus helpful .
--- NOTE | 2024-08-10 11:38 | PT.OTN ---
Current Diagnoses Other chronic pain (08/10/24) Low back pain, unspecified (08/10/24) Strain of muscle, fascia and tendon of the posterior muscle group at thigh level, left thigh, initial encounter (08/10/24) Physical Therapy Treatment Note PT-OP-A Visit Information Start: 05/29/24 16:33 Freq: Status: Active Protocol: Document 08/10/24 10:49 SP (Rec: 08/10/24 11:39 SP Laptop) Out-Patient Physical Therapy Visit Information Visit Information Visit Type Treatment Note Visit Start Time 10:50 Visit Stop Time 11:38 Visit Number 17 (08/09 with PN) Number of DUMP GROUNDS CHECKER Visits 1 Precautions Precautions Medical History (Reviewed @ 10:50 by Phillip Ramos MD) Allergic rhinitis Bipolar 2 disorder Chronic low back pain Depression, major, recurrent Dystrophic nail Essential hypertension Gait instability History of colonic polyps Impaired fasting glucose Laryngospasm Mixed hyperlipidemia PERES (nonalcoholic steatohepatitis) Osteochondritis of tibial tuberosity Osteopenia Overweight Primary osteoarthritis involving multiple joints Restless leg syndrome Tinea unguium Urinary incontinence spinal fusion right LAMAR 2016 (lateral scar) PT-OP-B Current Condition Start: 05/29/24 16:33 Freq: Status: Active Protocol: Document 07/26/24 08:09 SAK (Rec: 07/26/24 09:02 SAK [id number]) Current Condition History of Current Condition Onset Date 05/04/24 Current Complaints left hip and LBP History of Current Condition GLF due to slick board, bruising left posterior thigh, states fell on left buttock and slid. Went to ER, diagnosed as strain. Iced first 24 hours, then started alternating ice and heat. Then Epsom salt baths thinks made swelling worse. Thinks swelling gone now. Pain persists and reports back pain has worsened (history of LBP with spinal fusion) Spinal fusion L45 October 2021, pain now occasional with bending over without correct body mechanics , has worsened since fall; more frequently. Most pain with sit to stand. Buttock pain constant. For exercises walks around town for errands, yesterday went back to rowing with a group but had buttock pain. Has an exercise machine dual reclined rower and reclined cycle. No new N/T, has chronic numbness left toes , a couple right toes. Prior Treatments and Tests spinal fusion 2021 no imaging after fall PT-OP-C Subjective Start: 05/29/24 16:33 Freq: Status: Active Protocol: Document 08/10/24 10:49 SP (Rec: 08/10/24 11:39 SP Laptop) OP-PT Subjective Patient Comments Patient Comments She reported felt alot better after last tx with light massage. She states wants today to be her last tx, wants to safe visits incase needs to come back later in the year . She went to an orthopedis 3 yrs ago and didnt get much feedback. She did have an MRI in [place] [address] scan [place], knows can get forwarded to to be uploaded. She stated her L glut better. Patient Questionnaires Lower Extremity Functional Scale LEFS Score 43 (07/24/24) LEFS Impairment 40 to 59% Impaired (Score 32- 47) PT-OP-G Mobility & Gait Start: 05/29/24 16:33 Freq: Status: Active Protocol: Document 05/30/24 11:32 SAK (Rec: 06/04/24 15:09 [facility] [id number]) OP Gait Assessment Gait Gait Assistance Required: Independent Assistive Devices Assistive Device None Gait Deviations General Gait Pattern Antalgic Stair Climbing Evaluation Technique/Endurance Stair Climbing Direction Ascend and Descend Stair Climbing Technique Step to Step PT-OP-H Neuro Start: 05/29/24 16:33 Freq: Status: Active Protocol: Document 05/30/24 11:32 SAK (Rec: 06/04/24 15:09 [facility] [id number]) Sensation Evaluation Gross Sensation Gross Sensation WNL PT-OP-J Posture/Palpation/Skin Start: 05/29/24 16:33 Freq: Status: Active Protocol: Document 05/30/24 11:32 SAK (Rec: 05/30/24 12:13 SAK [id number]) Posture Evaluation Position Standing Head/C-Spine Posture Forward Head T-Spine Posture Increased Kyphosis L-Spine Posture Increased Lordosis Scapula Posture (L) Protracted,(R) Protracted Arm Posture (L) Internally Rotated Pelvis Posture Anteriorly Tilted Palpation Assessment Location right anterior thigh Palpation Findings Soft Tissue Tightness left buttock, hamstring Palpation Findings Soft Tissue Tightness, Tenderness l/s Palpation Findings Soft Tissue Tightness,Muscle Guarding Palpation Details right greater than left Skin Assessment Edema Assessment LEs Comments no significant edema noted Other Assessments Skin Assessment Comments no bruising PT-OP-K Range of Motion Start: 05/29/24 16:33 Freq: Status: Active Protocol: Document 05/30/24 11:32 [facility] (Rec: 06/04/24 15:09 [facility] [id number]) Lumbar Spine Range of Motion Lumbar Spine Active Flexion 45 Extension 10 Rotation Left 15 Rotation Right 15 Lateral Flexion Left 20 Lateral Flexion Right 20 ROM Limitations Soft Tissue Tightness,Pain Hip Goniometric Range of Motion Hip Left Flexion w/Knee Flexed 95 Straight Leg Raise 65 Extension 5 Abduction 25 Internal Rotation 15 External Rotation 60 Right Hip ROM WFL Yes Hip ROM Limitations Hip ROM Limitations Soft Tissue Tightness,Pain Knee Goniometric Range of Motion Knee jered Knee ROM WFL Yes PT-OP-M Strength Start: 05/29/24 16:33 Freq: Status: Active Protocol: Document 05/30/24 11:32 [facility] (Rec: 05/30/24 12:13 [facility] [id number]) Trunk Strength Trunk Manual Muscle Testing Flexion 3+ Fair+ Extension 3- Fair- Hip Strength Hip Manual Muscle Testing Left Flexion (L2) 4- Good- Extension (S1) 3+ Fair+ Abduction 4 Good Adduction 4- Good- External Rotation 4- Good- Internal Rotation 4 Good Right Flexion (L2) 4- Good- Extension (S1) 3+ Fair+ Abduction 4 Good Adduction 4- Good- External Rotation 4- Good- Internal Rotation 4 Good Knee Strength Knee Manual Muscle Testing Left Flexion (S2) 3+ Fair+ Extension (L3) 4- Good- Comments pain with resisted flexion Right Flexion (S2) 5 Normal Extension (L3) 4- Good- Ankle/Foot Strength Ankle and Foot Manual Muscle Testing Left Dorsiflexion (L4) 4+ Good+ Plantarflexion (S1) 3+ Fair+ Right Dorsiflexion (L4) 4- Good- Plantarflexion (S1) 3+ Fair+ PT-OP-Q Treatments Start: 05/29/24 16:33 Freq: Status: Active Protocol: Document 08/10/24 10:49 SP (Rec: 08/10/24 11:39 SP Laptop) Cardio Equipment Treadmill Duration (Minutes) 7 Speed 2.2 Incline 0-1- able carry on conversation occ 1 UE Other vc for postural alignment, soft heel stride, glut act Therapeutic Exercises Standing Exercises partial step-up Standing Exercise Name 1. 90% wt shift to upper leg 4 step 2. full 8 step (extra time spent) Side bilateral Equipment Used 1. 4 step lat/ back of hand support rail 2. 8 Step set 2- 1 HR Reps/Minutes 10 reps, 8x3 x 2 sets Comments improved more gluteal activation and pelvis R rotate neutral alignment squats Standing Exercise Name STS Equipment Used from chair Reps/Minutes 10 reps Comments cue long spine, push through heels for glut activation Therapeutic Activity Therapeutic Activity lifting body mechanics Name crate and 5# wt (8 min) Reps/Minutes many reps Comments Ed sit, stand alignment and lifting mechanics hip hinge with HOs, pivot turns, placing on various surfaces. PT-OP-R Modalities Start: 05/29/24 16:33 Freq: Status: Active Protocol: Document 08/07/24 11:40 SAK (Rec: 08/08/24 16:33 SAK Laptop) Hot Pack/Cold Pack Treatment Hot Pack Location Left HS and buttock Patient Position Prone Patient Tolerance Good PT-OP-T Assessment and Plan Start: 05/29/24 16:33 Freq: Status: Active Protocol: Document 08/10/24 10:49 SP (Rec: 08/10/24 11:39 SP Laptop) Physical Therapy Assessment Goals Three Impairment antalgic gait Powered Bridge Specialist Goal (LTG) Patient will be able to ambulate on level surfaces and stairs without limp and with ability to alternate LE's on stairs 06/27/24: good goal progress, some limp still evident, pt re -injured hamstring this week with quick movement 07/24/24: GOAL MET: receiprocal steps no UE support 4 x4 sets LTG Duration 07/28/24 GOAL MET 07/24/24 Four Impairment soft tissue tightness posterior left thigh, buttock Impairment . Custodial Goal (LTG) Improve soft tissue mobility to WNL to promote full active use of left LE 07/24/24: progression incorporating ball on wall STMs to front and lateral R hip, weakness stepping out of boat to dock. 08/07/24: no improvement LTG Duration 08/26/24 Two Impairment Lower extremity functional scale score 43/80, Oswestry 20 % Impairment Patient unable to go hiking safely Custodial Goal (LTG) Improve LEFS score to at least 70% and Oswestry to no greater than 10% as measure of improved low back and left LE function 06/27/24: LEFS increased to 63% , Oswestry decreased to 14%; both improved 07/24/24: score 43 (40-59% impaired) LTG Duration 08/26/24 slow progression One Impairment right posterior thigh, buttock , and LBP pain 4-8/10 Impairment . Powered Bridge Specialist Goal (LTG) Decrease pain to no greater than 2/10 with all usual activities 06/27/26: good goal progress reporting pain 2/10 on form today but has reported increase with activity and difficulty lifting right leg. 07/24/24: Still right hip pain getting out of boat 2/10 and needs use heavy UE support to lift self and other to support when needed. 08/10/24: R hip not getting caught in joint pain not as bad 0/10 during mini step ups, back still bothering her but mostly due to poor body mechanics, correction and TA make it go away, 2/10 most. LTG Duration 08/26/24 Improved MET GOAL 08/09 Assessment Summary Assessment Pt requested added feedback for form during mini step ups for glut engagement 4-8 step. She felt good with past ex given. Progressed body mechanics today for hip hinge proper form lifting items for yard work and laundry, provided HO for proper form sitting and ADLs with verbalized understanding and understanding will continue on own. She wants to leave visits for future if needed 2024. Physical Therapy Plan Frequency and Duration Frequency of Treatment 2x/Week Duration of treatment (weeks) 4 Plan of Care Start Date 07/26/24 Plan of Care End Date 08/26/24 Therapeutic Interventions Therapeutic Interventions Gait Training,Home Exercise Program,Manual Therapy, Neuromuscular Re-education, Patient/Caregiver Education, Self-Care/Home Management,Soft Tissue Mobilization,Taping, Therapeutic Activities, Therapeutic Exercises Modalities Cold Pack/Ice Massage,Electric Stimulation,Hot Packs, Infrared Therapy,Iontophoresis ,Ultrasound Discharge Physical Therapy Discharge Reasons Patient Request Discharge Comments Pt feel prepared to continue on own with her HEP. Next Visit Focus/Plan Next Note Type Discharge Summary Next Visit Plan PT to complete DC.
--- NOTE | 2024-08-28 10:05 | PT.OPDS ---
Current Diagnoses Other chronic pain (08/10/24) Low back pain, unspecified (08/10/24) Strain of muscle, fascia and tendon of the posterior muscle group at thigh level, left thigh, initial encounter (08/10/24) Visit Care Team Role Provider Type Phillip Ramos MD Attending Provider Physician Family Provider Primary Care Provider Referring Provider Specialty: Internal Medicine Address: [address] [place] [address], [facility] Email: [email or web address] Visit Number Visit Number 17 (08/09 with PN) Discharge Summary PT-OP-B Current Condition Start: 05/29/24 16:33 Freq: Status: Active Protocol: Document 07/26/24 08:09 SAK (Rec: 07/26/24 09:02 SAK [id number]) Current Condition History of Current Condition Onset Date 05/04/24 Current Complaints left hip and LBP History of Current Condition GLF due to slick board, bruising left posterior thigh, states fell on left buttock and slid. Went to ER, diagnosed as strain. Iced first 24 hours, then started alternating ice and heat. Then Epsom salt baths thinks made swelling worse. Thinks swelling gone now. Pain persists and reports back pain has worsened (history of LBP with spinal fusion) Spinal fusion L45 October 2021, pain now occasional with bending over without correct body mechanics , has worsened since fall; more frequently. Most pain with sit to stand. Buttock pain constant. For exercises walks around town for errands, yesterday went back to rowing with a group but had buttock pain. Has an exercise machine dual reclined rower and reclined cycle. No new N/T, has chronic numbness left toes , a couple right toes. Prior Treatments and Tests spinal fusion 2021 no imaging after fall PT-OP-C Subjective Start: 05/29/24 16:33 Freq: Status: Active Protocol: Document 08/10/24 10:49 SP (Rec: 08/10/24 11:39 SP Laptop) OP-PT Subjective Patient Comments Patient Comments She reported felt alot better after last tx with light massage. She states wants today to be her last tx, wants to safe visits incase needs to come back later in the year . She went to an orthopedis 3 yrs ago and didnt get much feedback. She did have an MRI in [place] [address] [place], knows can get forwarded to to be uploaded. She stated her L glut better. Patient Questionnaires Lower Extremity Functional Scale LEFS Score 43 (07/24/24) LEFS Impairment 40 to 59% Impaired (Score 32- 47) PT-OP-G Mobility & Gait Start: 05/29/24 16:33 Freq: Status: Active Protocol: Document 05/30/24 11:32 SAK (Rec: 06/04/24 15:09 [facility] [id number]) OP Gait Assessment Gait Gait Assistance Required: Independent Assistive Devices Assistive Device None Gait Deviations General Gait Pattern Antalgic Stair Climbing Evaluation Technique/Endurance Stair Climbing Direction Ascend and Descend Stair Climbing Technique Step to Step PT-OP-H Neuro Start: 05/29/24 16:33 Freq: Status: Active Protocol: Document 05/30/24 11:32 SAK (Rec: 06/04/24 15:09 [facility] [id number]) Sensation Evaluation Gross Sensation Gross Sensation WNL PT-OP-J Posture/Palpation/Skin Start: 05/29/24 16:33 Freq: Status: Active Protocol: Document 05/30/24 11:32 SAK (Rec: 05/30/24 12:13 [facility] [id number]) Posture Evaluation Position Standing Head/C-Spine Posture Forward Head T-Spine Posture Increased Kyphosis L-Spine Posture Increased Lordosis Scapula Posture (L) Protracted,(R) Protracted Arm Posture (L) Internally Rotated Pelvis Posture Anteriorly Tilted Palpation Assessment Location right anterior thigh Palpation Findings Soft Tissue Tightness left buttock, hamstring Palpation Findings Soft Tissue Tightness, Tenderness l/s Palpation Findings Soft Tissue Tightness,Muscle Guarding Palpation Details right greater than left Skin Assessment Edema Assessment LEs Comments no significant edema noted Other Assessments Skin Assessment Comments no bruising PT-OP-K Range of Motion Start: 05/29/24 16:33 Freq: Status: Active Protocol: Document 05/30/24 11:32 SAK (Rec: 06/04/24 15:09 [facility] [id number]) Lumbar Spine Range of Motion Lumbar Spine Active Flexion 45 Extension 10 Rotation Left 15 Rotation Right 15 Lateral Flexion Left 20 Lateral Flexion Right 20 ROM Limitations Soft Tissue Tightness,Pain Hip Goniometric Range of Motion Hip Left Flexion w/Knee Flexed 95 Straight Leg Raise 65 Extension 5 Abduction 25 Internal Rotation 15 External Rotation 60 Right Hip ROM WFL Yes Hip ROM Limitations Hip ROM Limitations Soft Tissue Tightness,Pain Knee Goniometric Range of Motion Knee jered Knee ROM WFL Yes PT-OP-M Strength Start: 05/29/24 16:33 Freq: Status: Active Protocol: Document 05/30/24 11:32 ASHLEY (Rec: 05/30/24 12:13 ASHLEY [id number]) Trunk Strength Trunk Manual Muscle Testing Flexion 3+ Fair+ Extension 3- Fair- Hip Strength Hip Manual Muscle Testing Left Flexion (L2) 4- Good- Extension (S1) 3+ Fair+ Abduction 4 Good Adduction 4- Good- External Rotation 4- Good- Internal Rotation 4 Good Right Flexion (L2) 4- Good- Extension (S1) 3+ Fair+ Abduction 4 Good Adduction 4- Good- External Rotation 4- Good- Internal Rotation 4 Good Knee Strength Knee Manual Muscle Testing Left Flexion (S2) 3+ Fair+ Extension (L3) 4- Good- Comments pain with resisted flexion Right Flexion (S2) 5 Normal Extension (L3) 4- Good- Ankle/Foot Strength Ankle and Foot Manual Muscle Testing Left Dorsiflexion (L4) 4+ Good+ Plantarflexion (S1) 3+ Fair+ Right Dorsiflexion (L4) 4- Good- Plantarflexion (S1) 3+ Fair+ PT-OP-T Assessment and Plan Start: 05/29/24 16:33 Freq: Status: Active Protocol: Document 08/28/24 10:05 ASHLEY (Rec: 08/28/24 10:05 ASHLEY Laptop) Physical Therapy Plan Discharge Physical Therapy Discharge Reasons [place] in Progress
== END 2024-08-29 13:33 | disposition home or self-care (01) ==
LOC: PHYS 10:45
PROVIDERS: Family Provider Internal Medicine; PCP Internal Medicine; Referring Provider Internal Medicine; Visit Provider Internal Medicine
DX: M54.50 Low back pain, unspecified (principal); G89.29 Other chronic pain; S76.312A Strain of muscle, fascia and tendon of the posterior muscle group at thigh level, left thigh, initial encounter
CPT/HCPCS: 97010; 97110; 97112; 97116; 97140; 97162; 97530; 97535

== ENCOUNTER → 2025-02-13 16:57 | Outpatient (CLI) | payer MEDICARE, OTHER, SELFPAY ==
[2025-02-13 17:23] LABS: Hematocrit 35.4 % (36-46); Hemoglobin 12.0 g/dL (12.0-16.0); Mean Corpuscular HGB Conc 34.0 % (30-36); Mean Corpuscular Hemoglobin 30.2 PG (26-34); Mean Corpuscular Volume 88.8 fL (80-100); Platelet Count 244 X10^3/uL (150-400)
[2025-02-13 17:45] LABS: Hemoglobin A1C% w Est Avg Glu 5.8 % (4.0-6.0)
[2025-02-13 17:50] LABS: HEMOLYSIS < 15 (0-50)
[2025-02-13 17:54] LABS: Albumin 4.6 g/dL (3.5-5.0); Albumin Globulin Ratio 2.1 (1.0-2.8); Blood Urea Nitrogen 16 mg/dL (7-17); Calcium 9.6 mg/dL (8.4-10.2); Carbon Dioxide 30 mmol/L (22-32); Estimated Glomerular Filt Rate > 60 mL/min (>60); Globulin 2.2 g/dL (1.7-4.1); Glucose 141 mg/dL (70-99); HDL Cholesterol 70 mg/dL (40-60); Total Protein 6.8 g/dL (6.3-8.2)
[2025-02-13 18:25] LABS: TSH w/ Reflex to FT4 2.33 uIU/mL (0.47-4.68)
[2025-02-13 19:58] LABS: Alanine Aminotransferase 40 IU/L (<35); Alkaline Phosphatase 84 U/L (38-126); Chloride 101 mmol/L (98-107); Cholesterol 161 mg/dL (140-199); Potassium 3.7 mmol/L (3.4-5.1); Sodium 140 mmol/L (137-145); Triglycerides 238 mg/dL (35-150)
== END ==
PROVIDERS: PCP Internal Medicine; Referring Provider Internal Medicine; Visit Provider Internal Medicine
DX: F31.81 Bipolar II disorder (principal); R73.01 Impaired fasting glucose; E78.2 Mixed hyperlipidemia
CPT/HCPCS: 80053; 80061; 80175; 83036; 84443; 85027

== ENCOUNTER → 2025-03-02 08:58 | Outpatient (CLI) | payer MEDICARE, OTHER, SELFPAY ==
--- NOTE | 2025-03-02 09:00 | DI.MG.S_ITS ---
MM screening mammo BI: 03/02/2025. BI-RADS: 2 CLINICAL: 69-year old female for bilateral screening mammogram. Tyrer-Cuzick lifetime risk of 3.0%. No personal or first-degree family history of breast cancer. PRIOR EXAMS 01/03/2024. MAMMOGRAPHY TECHNIQUE: 2D and 3D (tomosynthesis) digital mammographic views obtained, with additional images as needed for full coverage. Current study was also evaluated with a Computer Aided Detection (CAD) system. DENSITY A. The breasts are almost entirely fatty. MAMMOGRAPHY FINDINGS Right: Benign-appearing mass noted on the right. There are no suspicious masses, calcifications, or other findings in the breast. Left: No suspicious mass, asymmetry, microcalcification, or other abnormality seen. IMPRESSION: Right * No evidence of malignancy with benign findings. Left * No evidence of malignancy. RECOMMENDATIONS Bilateral * Annual screening mammography. OVERALL ASSESSMENT CATEGORY BI-RADS-2: Benign. [employer] recommends annual screening mammography beginning at age 40 for women with average risk of breast cancer. ELECTRONICALLY SIGNED: Edwar Reyna M.D. on 03/04/2025 at 07:58:42 AM PT Interpreting Station ID: [id number]
== END ==
PROVIDERS: PCP Internal Medicine; Referring Provider Internal Medicine; Visit Provider Internal Medicine
DX: Z12.31 Encounter for screening mammogram for malignant neoplasm of breast (principal); R92.313 Mammographic fatty tissue density, bilateral breasts
CPT/HCPCS: 77063; 77067